=== PATIENT | female | born 1945 | race Caucasian/White ===

== ENCOUNTER 2016-07-22 17:46 | Inpatient (IN) | payer MEDICARE, OTHER ==
[2016-07-22] MEDS ORDERED: SODIUM CHLORIDE 0.9% 1,000 ML IV STA (18:36)
[2016-07-22] MEDS ORDERED: SODIUM CHLORIDE 0.9% 2,000 ML IV ONE (18:36)
--- NOTE | 2016-07-22 18:39 | ED ---
General Adult HPI - General Chief complaint: Fever Stated complaint: weakness Time Seen by Provider: 07/22/16 18:15 Source: patient, family, RN notes reviewed Mode of arrival: wheelchair Limitations: no limitations - History of Present Illness Initial comments: Is a 70-year-old female who presents with complaints of 2 weeks of flulike symptoms with headaches chills or generalized body aches and no nausea vomiting or diarrhea. She feels tired and has had decreased energy decreased oral appetite. 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 She denies any overt cough or dysuria no sore throat and rhinorrhea earaches or other symptoms at this time. She denies having neck stiffness so she does have again a headache. No back pain. - Related Data Home Medications Medication Instructions Recorded Confirmed Metoprolol Tartrate [Lopressor] 100 mg PO BID 07/22/16 07/22/16 Allergies Allergy/AdvReac Type Severity Reaction Status Date / Time Penicillins Allergy Rash/Hives Verified 07/22/16 18:07 Review of Systems ROS Statement: Those systems with pertinent positive or pertinent negative responses have been documented in the HPI. ROS Other: All systems not noted in ROS Statement are negative. Past Medical History Past Medical History: Hypertension History of Any Multi-Drug Resistant Organisms: None Reported Additional Past Surgical History / Comment(s): cataract Past Psychological History: No Psychological Hx Reported Smoking Status: Never smoker Past Alcohol Use History: None Reported Past Drug Use History: None Reported General Exam - General Exam Comments Initial Comments: This is a well-developed well-nourished awake alert oriented 3 female Limitations: no limitations General appearance: alert, lethargic Head exam: Present: atraumatic, normocephalic, normal inspection Eye exam: Present: normal appearance, PERRL, EOMI. Absent: scleral icterus, conjunctival injection, periorbital swelling ENT exam: Present: mucous membranes dry Neck exam: Present: normal inspection, full ROM. Absent: tenderness, meningismus, lymphadenopathy Respiratory exam: Present: normal lung sounds bilaterally. Absent: respiratory distress, wheezes, rales, rhonchi, stridor Cardiovascular Exam: Present: regular rate, normal rhythm, normal heart sounds. Absent: systolic murmur, diastolic murmur, rubs, gallop, clicks GI/Abdominal exam: Present: soft, normal bowel sounds. Absent: distended, tenderness, guarding, rebound, rigid Extremities exam: Present: normal inspection, full ROM, normal capillary refill. Absent: tenderness, pedal edema, joint swelling, calf tenderness Back exam: Present: normal inspection, full ROM. Absent: tenderness, CVA tenderness (R), CVA tenderness (L), muscle spasm, paraspinal tenderness, vertebral tenderness Neurological exam: Present: alert, oriented X3, CN II-XII intact Psychiatric exam: Present: normal affect, normal mood Skin exam: Present: warm, dry, intact, normal color. Absent: rash Course Vital Signs 07/22/16 07/22/16 07/22/16 17:51 19:17 19:19 Temperature 101.4 F H 101.6 F H Pulse Rate 75 69 Respiratory 18 18 Rate Blood Pressure 141/69 134/61 O2 Sat by Pulse 97 89 L 96 Oximetry 07/22/16 19:59 Temperature 101.7 F H Pulse Rate 79 Respiratory 18 Rate Blood Pressure 145/67 O2 Sat by Pulse 96 Oximetry EKG Findings - EKG Results: EKG: interpreted by MARIANO MCMANUS, sinus rhythm, normal axis, normal QRS, normal ST/ T, no acute changes (Normal sinus rhythm of 75 appear normal 140 QRS duration 82 QT/QTC of 392/437 this is a normal-appearing EKG.) Medical Decision Making - Medical Decision Making I did discuss findings with the patient family members. The patient's isn't patient is still unclear though pneumonia appears to be likely. I did discuss case with patient and her family and with the admitting physician patient be admitted with infectious disease consultation. Malaria screen is pending hepatitis panel will be ordered. Patient will be started on antibiotics. - Lab Data Result diagrams: 07/22/16 18:22 07/22/16 18:22 Lab Results 07/22/16 07/22/16 07/22/16 Range/Units 18:22 18:22 18:22 WBC 8.0 (3.8-10.6) k/uL RBC 4.44 (3.80-5.40) m/uL Hgb 13.2 (11.4-16.0) gm/dL Hct 39.0 (34.0-46.0) % MCV 87.8 (80.0-100.0) fL MCH 29.8 (25.0-35.0) pg MCHC 34.0 (31.0-37.0) g/dL RDW 12.6 (11.5-15.5) % Plt Count 154 (150-450) k/uL Neutrophils % 73 % Lymphocytes % 21 % Monocytes % 4 % Eosinophils % 0 % Basophils % 0 % Neutrophils # 5.8 (1.3-7.7) k/uL Lymphocytes # 1.7 (1.0-4.8) k/uL Monocytes # 0.3 (0-1.0) k/uL Eosinophils # 0.0 (0-0.7) k/uL Basophils # 0.0 (0-0.2) k/uL Manual Slide Review Performed Poikilocytosis (manual Present D-Dimer (<0.60) mg/L FEU Sodium 132 L (137-145) mmol/L Potassium 3.6 (3.5-5.1) mmol/L Chloride 93 L (98-107) mmol/L Carbon Dioxide 29 (22-30) mmol/L Anion Gap 10 mmol/L BUN 17 (7-17) mg/dL Creatinine 0.85 (0.52-1.04) mg/dL Est GFR (MDRD) Af Amer >60 (>60 ml/min/1.73 sqM) Est GFR (MDRD) Non-Af >60 (>60 ml/min/1.73 sqM) Glucose 120 H (74-99) mg/dL Plasma Lactic Acid Joce (0.7-2.0) mmol/L Calcium 8.2 L (8.4-10.2) mg/dL Magnesium 2.5 H (1.6-2.3) mg/dL Total Bilirubin 0.8 (0.2-1.3) mg/dL AST 128 H (14-36) U/L ALT 137 H (9-52) U/L Alkaline Phosphatase 94 (38-126) U/L Total Creatine Kinase 42 (30-135) U/L CK-MB (CK-2) 0.3 (0.0-2.4) ng/mL CK-MB (CK-2) Rel Index 0.7 Troponin I <0.012 (0.000-0.034) ng/mL Total Protein 6.3 (6.3-8.2) g/dL Albumin 3.4 L (3.5-5.0) g/dL Amylase 45 (30-110) U/L Lipase 74 (23-300) U/L 07/22/16 07/22/16 Range/Units 18:22 18:22 WBC (3.8-10.6) k/uL RBC (3.80-5.40) m/uL Hgb (11.4-16.0) gm/dL Hct (34.0-46.0) % MCV (80.0-100.0) fL MCH (25.0-35.0) pg MCHC (31.0-37.0) g/dL RDW (11.5-15.5) % Plt Count (150-450) k/uL Neutrophils % % Lymphocytes % % Monocytes % % Eosinophils % % Basophils % % Neutrophils # (1.3-7.7) k/uL Lymphocytes # (1.0-4.8) k/uL Monocytes # (0-1.0) k/uL Eosinophils # (0-0.7) k/uL Basophils # (0-0.2) k/uL Manual Slide Review Poikilocytosis (manual D-Dimer 5.48 H (<0.60) mg/L FEU Sodium (137-145) mmol/L Potassium (3.5-5.1) mmol/L Chloride (98-107) mmol/L Carbon Dioxide (22-30) mmol/L Anion Gap mmol/L BUN (7-17) mg/dL Creatinine (0.52-1.04) mg/dL Est GFR (MDRD) Af Amer (>60 ml/min/1.73 sqM) Est GFR (MDRD) Non-Af (>60 ml/min/1.73 sqM) Glucose (74-99) mg/dL Plasma Lactic Acid Joce 1.4 (0.7-2.0) mmol/L Calcium (8.4-10.2) mg/dL Magnesium (1.6-2.3) mg/dL Total Bilirubin (0.2-1.3) mg/dL AST (14-36) U/L ALT (9-52) U/L Alkaline Phosphatase (38-126) U/L Total Creatine Kinase (30-135) U/L CK-MB (CK-2) (0.0-2.4) ng/mL CK-MB (CK-2) Rel Index Troponin I (0.000-0.034) ng/mL Total Protein (6.3-8.2) g/dL Albumin (3.5-5.0) g/dL Amylase (30-110) U/L Lipase (23-300) U/L - Radiology Data Radiology results: report reviewed (I did review the imaging and reports there is some evidence of a atypical infiltrate a CAT scan but no evidence of PE.), image reviewed Disposition Clinical Impression: Atypical pneumonia, Febrile illness, Elevated d-dimer Disposition: ADMITTED IP TO THIS HOSP Condition: Stable Referrals: Dennys Ferrrao MD [Primary Care Provider] - 1-2 days
[2016-07-22 18:48] LABS: Basophils % (A) 0 %; CH 30.4; CHCM 34.7; MCV 87.8 fL (80.0-100.0); Mean Platelet Volume 7.9; RDW 12.6 % (11.5-15.5)
[2016-07-22 18:57] LABS: Eosinophils % (A) 0 %; HDW 2.66; HGB 13.2 gm/dL (11.4-16.0); Luc # (Auto) 0.16; Luc % (Auto) 2; Lymphocytes # (A) 1.7 k/uL (1.0-4.8); Lymphocytes % (A) 21 %; MCH 29.8 pg (25.0-35.0); Monocytes # (A) 0.3 k/uL (0-1.0); Monocytes % (A) 4 %; Neutrophils # (A) 5.8 k/uL (1.3-7.7); Neutrophils % (A) 73 %; RBC 4.44 m/uL (3.80-5.40); WBC (Perox) 8.51
[2016-07-22 19:03] LABS: ALT 137 U/L (9-52); AST 128 U/L (14-36); Alkaline Phosphatase 94 U/L (38-126); Amylase 45 U/L (30-110); Anion Gap 10 mmol/L; Blood Urea Nitrogen 17 mg/dL (7-17); Calcium 8.2 mg/dL (8.4-10.2); Carbon Dioxide 29 mmol/L (22-30); Chloride 93 mmol/L (98-107); Glucose 120 mg/dL (74-99); Magnesium 2.5 mg/dL (1.6-2.3); Non-African American GFR(MDRD) >60 (>60 ml/min/1.73 sqM); Potassium 3.6 mmol/L (3.5-5.1); Sodium 132 mmol/L (137-145); Total Bilirubin 0.8 mg/dL (0.2-1.3); Total Protein 6.3 g/dL (6.3-8.2)
[2016-07-22 19:06] LABS: Creatine Kinase 42 U/L (30-135)
--- NOTE | 2016-07-22 19:12 | CT ---
EXAMINATION TYPE: CT brain wo con DATE OF EXAM: 07/22/2016 6:56 PM COMPARISON: NONE HISTORY: 70-year-old female complains of weakness and flu like symptoms. TECHNIQUE: Examination was done in axial plane without intravenous contrast. Coronal and sagittal r econstructions performed. CT DLP: 996.7 mGycm Automated exposure control for dose reduction was used. FINDINGS: There is no evidence of acute intracranial hemorrhage, acute ischemic changes, mass, mass-effect, or extra-axial fluid collection. There is no effacement of cerebral sulci or basal subarachnoid cister ns. There is no hydrocephalus. There is no midline shift. Gilbert-white matter distinction is preserv ed. Benign basal ganglia calcifications. 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 Paranasal sinus es and mastoid air cells are well pneumatized. Orbits and globes are intact. IMPRESSION: No acute intracranial abnormality seen.
--- NOTE | 2016-07-22 19:13 | XR ---
EXAMINATION TYPE: XR chest 2V DATE OF EXAM: 07/22/2016 6:58 PM COMPARISON: None HISTORY: 70-year-old female with cough TECHNIQUE: Frontal and lateral views FINDINGS: The cardiomediastinal silhouette, aorta, and pulmonary vasculature are within normal limits. Some str imtiaz atelectasis at the left infrahilar region. Focal density at the right apex could represent a elsie cified granuloma or bone island of the right first rib. No consolidation or pleural effusion. IMPRESSION: No acute cardiopulmonary process.
[2016-07-22 19:16] LABS: Manual Review Performed
[2016-07-22 19:18] LABS: Creatine Kinase MB 0.3 ng/mL (0.0-2.4); Troponin I <0.012 ng/mL (0.000-0.034)
[2016-07-22] MEDS ORDERED: ACETAMINOPHEN TAB 325 MG TAB PO STA (19:30)
[2016-07-22] MEDS ORDERED: RX INFO: IV CONTRAST WAS GIVEN 1 EACH MISC MISCELLANE PRN (19:39)
--- NOTE | 2016-07-22 20:12 | CT ---
EXAMINATION TYPE: CT angio chest DATE OF EXAM: 07/22/2016 8:00 PM COMPARISON: Radiograph same day HISTORY: 70-year-old female complains of generalized weakness, fever, and flu like symptoms. TECHNIQUE: Contiguous axial scanning of the chest performed with IV Contrast, patient injected with 1 00 mL of Omnipaque 350. Coronal/sagittal MIP reconstructions performed. CT DLP: 210.1 mGycm Automated exposure control for dose reduction was used. FINDINGS: The heart see upper limits of normal in size without pericardial effusion. Aorta is normal caliber with conventional arch vessel branching anatomy. While there is satisfactory opacification of the pulmonary arterial system, there is excessive respir atory motion limiting evaluation. This causes mild heterogeneity of the pulmonary arteries throughout but makes the basilar lower lobe segmental and subsegmental branches nondiagnostic. No evidence for pulmonary embolus within the upper to mid lungs. No thoracic lymphadenopathy. A 1.2 cm subcarinal lymph node is prominent but not enlarged. Evaluation of the lungs shows [id number] diffuse bronchial wall thickening, hazy diffuse areas of atelectasis, and some bands of atelectasis at the left base. There is no true consolidation or pl eural effusion. Visualized upper abdomen shows no gross abnormality. Bones: Endplate spondylosis midthoracic spine. Prominent Schmorl's nodes inferior L1 vertebral body. IMPRESSION: 1. RESPIRATORY MOTION ARTIFACTS. THE BASILAR SEGMENTAL AND SUBSEGMENTAL BRANCHES ON BOTH SIDES ARE NO NDIAGNOSTIC. NO EVIDENCE FOR PULMONARY EMBOLUS WITHIN THE UPPER OR MID LUNGS. 2. [id number] DIFFUSE BRONCHIAL WALL THICKENING AND HAZY DIFFUSE AREAS OF ATELECTASIS. CORRELAT E FOR BRONCHITIS, UNCONTROLLED ASTHMA, OR ATYPICAL PNEUMONIAS.
[2016-07-22] MEDS ORDERED: LEVOFLOXACIN 750MG-D5W PMX 750 MG in DEXTROSE/WATER 1 150ML.BAG IVPB STA (20:47)
[2016-07-22] MEDS ORDERED: PNEUMONIA PROTOCOL UTILIZED 1 EACH MISC PO PRN (20:47)
--- NOTE | 2016-07-22 21:56 | US ---
EXAMINATION TYPE: US venous doppler duplex LE BI DATE OF EXAM: 07/22/2016 8:51 PM COMPARISON: NONE CLINICAL HISTORY: 70 year-old female with elevated d-dimer and pain. SIDE PERFORMED: Bilateral TECHNIQUE: The lower extremity deep venous system is examined utilizing real time linear array sonog caterina with graded compression, doppler sonography and color-flow sonography. FINDINGS: VESSELS IMAGED: External Iliac Vein (EIV) Common Femoral Vein Deep Femoral Vein Greater Saphenous Vein * Femoral Vein Popliteal Vein Small Saphenous Vein * Proximal Calf Veins (* superficial vessels) Right Leg: Negative for DVT Left Leg: Negative for DVT IMPRESSION: No evidence for DVT within the bilateral lower extremities imaged from the groin to the upper calves.
[2016-07-22] MEDS: METOPROLOL TARTRATE 50 MG TAB PO SCH (22:03)
[2016-07-22 22:16] VITALS: BMI 26.3
[2016-07-23 07:59] LABS: Hepatitis B Core IgM Index 0.02; Hepatitis B Surface Ag Index 0.06; Hepatitis C Virus IgG Ab Negative (Negative); Hepatitis C Virus IgG Index 0.01
[2016-07-23] MEDS: METOPROLOL TARTRATE 50 MG TAB PO SCH ×2 (08:46→21:04)
--- NOTE | 2016-07-23 14:54 | P.CONS ---
History of Present Illness - Reason for Consult Consult date: 07/23/16 Atypical pneumonia, febrile illness - History of Present Illness This is a 70-year-old female who gives history that she tested positive for influenza sometime in May and completed a course of antimicrobial. 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 While she was there she was feeling sick again and quite congested. She will return in a couple weeks later she developed chills, terrible headache , body aches. She has occasional cough but much better from before. She denies any nausea, vomiting, diarrhea. She states she's had decreased appetite and probably some weight loss but unknown amount. She came into [facility] emergency center for evaluation. Chest x-ray showed no acute cardiopulmonary process. CAT scan of the brain showed no acute findings. D- dimer was elevated at 5.[address] of the chest showed no pulmonary embolism. There was mild to moderate bronchial cardenas thickening with hazy diffuse areas of atelectasis. Bronchitis, uncontrolled as more atypical pneumonia and differential. Ultrasound of the bilateral lower extremities were negative for DVT. Blood cultures status received. Sputum was uncollected. Urine is ordered. Influenza testing is status received. White count was 8, temperature 101.7. AST 128, ALT 137. Albumin 3.4. Acute hepatitis panel is negative. Parasite malaria testing is in process. She thinks that her doctors told her she has had elevated liver function tests in the past but does not know why or if there was any workup done. She was placed on Levaquin and she now states that she is feeling much improved. All her symptoms are improved. She states she has been walking in the hallway without any difficulty and is hoping to go home soon. Review of Systems All systems: negative Constitutional: Reports chills, Denies fever Eyes: denies blurred vision, denies pain Ears, nose, mouth and throat: Reports headache, Denies sore throat Cardiovascular: Denies chest pain, Denies shortness of breath Respiratory: Denies cough Gastrointestinal: Denies abdominal pain, Denies diarrhea, Denies nausea, Denies vomiting Genitourinary: Denies dysuria, Denies hematuria Musculoskeletal: Reports myalgias Integumentary: Denies pruritus, Denies rash Neurological: Denies numbness, Denies weakness Psychiatric: Denies anxiety, Denies depression Endocrine: Denies fatigue, Denies weight change Past Medical History Past Medical History: Hypertension Additional Past Medical History / Comment(s): fuchs dystrophy History of Any Multi-Drug Resistant Organisms: None Reported Past Surgical History: Tonsillectomy Additional Past Surgical History / Comment(s): bialteral cataracts with lense implants, bilateral bunionectomy Past Anesthesia/Blood Transfusion Reactions: No Reported Reaction Past Psychological History: No Psychological Hx Reported Smoking Status: Never smoker Past Alcohol Use History: None Reported Additional Past Alcohol Use History / Comment(s): Patient is a lifelong nonsmoker. She denies any medical marijuana, marijuana, street drug or alcohol use. She currently lives alone. There are no animals in the home. She has traveled to [place] on 2 occasions, [place] and [place]. She denies any recent animal exposures. 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 Past Drug Use History: None Reported - Past Family History Mother Family Medical History: Cancer Additional Family Medical History / Comment(s): breast cancer, osteoporosis Medications and Allergies Home Medications Medication Instructions Recorded Confirmed Type Metoprolol Tartrate [Lopressor] 100 mg PO BID 07/22/16 07/22/16 History Allergies Allergy/AdvReac Type Severity Reaction Status Date / Time Penicillins Allergy Rash/Hives Verified 07/22/16 18:07 Physical Exam Vitals: Vital Signs Temp Pulse Pulse Resp BP BP Pulse Ox 07/23/16 07:00 98.4 F 70 16 144/66 96 07/23/16 00:00 16 07/22/16 23:00 97.7 F 69 16 124/55 95 07/22/16 21:28 98.3 F 65 18 124/60 94 L 07/22/16 19:59 101.7 F H 79 18 145/67 96 07/22/16 19:19 96 07/22/16 19:17 101.6 F H 69 18 134/61 89 L 07/22/16 17:51 101.4 F H 75 18 141/69 97 Intake and Output 07/22/16 07/23/16 07/23/16 22:59 06:59 14:59 Intake Total 120 Balance 120 Intake: Oral 120 Other: Voiding Method Toilet Toilet # Voids 1 3 Weight 69.5 kg Gen: This is a 70-year-old female. She is sitting up in the edge of the bed and appears to be in no acute distress. No respiratory distress noted. HEENT: Head is atraumatic, normocephalic. Pupils equal, round. Sclerae is anicteric. Conjunctiva pink. Mucous members of the mouth are moist. No thrush noted. NECK: Supple. No JVD. No lymphadenopathy. No thyromegaly. LUNGS: Clear to auscultation. No wheezes or rhonchi. No intercostal retractions. HEART: Regular rate and rhythm. No murmur. ABDOMEN: Soft. Bowel sounds are present. No masses. No tenderness. No CVA tenderness. EXTREMITIES: No pedal edema. No calf tenderness. Dorsalis pedis +2 bilaterally. NEUROLOGICAL: Patient is awake, alert and oriented x3. Cranial nerves 2 through 12 are grossly intact. Results Results: Laboratory Results WBC 8.0 k/uL (3.8-10.6) 07/22/16 18: RBC 4.44 m/uL (3.80-5.40) 07/22/16 18: Hgb 13.2 gm/dL (11.4-16.0) 07/22/16 18: Hct 39.0 % (34.0-46.0) 07/22/16 18: MCV 87.8 fL (80.0-100.0) 07/22/16 18: MCH 29.8 pg (25.0-35.0) 07/22/16 18: MCHC 34.0 g/dL (31.0-37.0) 07/22/16 18: RDW 12.6 % (11.5-15.5) 07/22/16 18:22 Plt Count 154 k/uL (150-450) 07/22/16 18:22 Neutrophils % 73 % 07/22/16 18:22 Lymphocytes % 21 % 07/22/16 18:22 Monocytes % 4 % 07/22/16 18: Eosinophils % 0 % 07/22/16 18:22 Basophils % 0 % 07/22/16 18:22 Neutrophils # 5.8 k/uL (1.3-7.7) 07/22/16 18: Lymphocytes # 1.7 k/uL (1.0-4.8) 07/22/16 18:22 Monocytes # 0.3 k/uL (0-1.0) 07/22/16 18:22 Eosinophils # 0.0 k/uL (0-0.7) 07/22/16 18:22 Basophils # 0.0 k/uL (0-0.2) 07/22/16 18:22 Manual Slide Review Performed 07/22/16 18:22 Poikilocytosis (manual Present 07/22/16 18:22 D-Dimer 5.48 mg/L FEU (<0.60) H 07/22/16 18:22 Sodium 132 mmol/L (137-145) L 07/22/16 18:22 Potassium 3.6 mmol/L (3.5-5.1) 07/22/16 18: Chloride 93 mmol/L (98-107) L 07/22/16 18: Carbon Dioxide 29 mmol/L (22-30) 07/22/16 18:22 Anion Gap 10 mmol/L 07/22/16 18:22 BUN 17 mg/dL (7-17) 07/22/16 18:22 Creatinine 0.85 mg/dL (0.52-1.04) 07/22/16 18:22 Est GFR (MDRD) Af Amer >60 (>60 ml/min/1.73 sqM) 07/22/16 18:22 Est GFR (MDRD) Non-Af >60 (>60 ml/min/1.73 sqM) 07/22/16 18: Glucose 120 mg/dL (74-99) H 07/22/16 18:22 Plasma Lactic Acid Joce 1.4 mmol/L (0.7-2.0) 07/22/16 18: Calcium 8.2 mg/dL (8.4-10.2) L 07/22/16 18:22 Magnesium 2.5 mg/dL (1.6-2.3) H 07/22/16 18:22 Total Bilirubin 0.8 mg/dL (0.2-1.3) 07/22/16 18:22 AST 128 U/L (14-36) H 07/22/16 18:22 ALT 137 U/L (9-52) H 07/22/16 18:22 Alkaline Phosphatase 94 U/L (38-126) 07/22/16 18:22 Total Creatine Kinase 42 U/L (30-135) 07/22/16 18:22 CK-MB (CK-2) 0.3 ng/mL (0.0-2.4) 07/22/16 18: CK-MB (CK-2) Rel Index 0.7 07/22/16 18:22 Troponin I <0.012 ng/mL (0.000-0.034) 07/22/16 18: Total Protein 6.3 g/dL (6.3-8.2) 07/22/16 18: Albumin 3.4 g/dL (3.5-5.0) L 07/22/16 18: Amylase 45 U/L (30-110) 07/22/16 18: Lipase 74 U/L (23-300) 07/22/16 18:22 Hepatitis A IgM Ab NEGATIVE 07/22/16 18:22 Hep Bs Antigen Negative 07/22/16 18: Hep B Core IgM Ab NEGATIVE 07/22/16 18: Hep C IgG Ab Negative (Negative) 07/22/16 18:22 CBC & Chem 7: 07/22/16 18:22 07/22/16 18:22 Labs: Abnormal Lab Results - Last 24 Hours (Table) 07/22/16 07/22/16 Range/Units 18: 18: D-Dimer 5.48 H (<0.60) mg/L FEU Sodium 132 L (137-145) mmol/L Chloride 93 L (98-107) mmol/L Glucose 120 H (74-99) mg/dL Calcium 8.2 L (8.4-10.2) mg/dL Magnesium 2.5 H (1.6-2.3) mg/dL AST 128 H (14-36) U/L ALT 137 H (9-52) U/L Albumin 3.4 L (3.5-5.0) g/dL Assessment and Plan Plan: This is a 70-year-old female who presented to the hospital with flu- type symptoms including fever, chills, headache, body aches with influenza testing in process. She did have previous treatment for influenza before May of this year. She has been given Levaquin with significant improvement of all her symptoms. Possible atypical pneumonia not ruled out. Continue supportive care. Further recommendations as patient progresses. The above dictated assessment and findings were discussed with Dr. Goodman. The impression and plan of care have been directed as dictated. Alaina Herrera nurse practitioner acting as scribe for Dr. Goodman.
[2016-07-23] MEDS: SODIUM CHLORIDE 0.9% 1,000 ML IV SCH (16:32)
[2016-07-23] MEDS: ENOXAPARIN 40 MG/0.4 ML SYRINGE SQ SCH (18:05)
[2016-07-23] MEDS: ACETAMINOPHEN TAB 325 MG TAB PO PRN (18:07)
--- NOTE | 2016-07-23 19:10 | P.CNPUL ---
History of Present Illness Consult date: 07/23/16 Requesting physician: Beto Bray Reason for consult: other (Abnormal CT of the chest, suggestive of atelectasis, possible pneumonia and possible bronchitis.) Chief complaint: Weakness fatigue and fever. History of present illness: This is a 70-year-old female with 2 weeks history of flulike symptoms, symptoms include low-grade fever, headaches, generalized aches and pains, no cough, no no chills, no shortness of breath, patient has been describing symptoms of weakness and poor appetite. Patient was in [facility] back in May for 2 weeks, and she had no clinical symptoms while in [facility]. Chest x-ray showed mostly atelectasis at the left base, same was noted on the CT of the chest. I reviewed the CT of the chest myself, and there is clearly evidence of bronchial wall thickening, and hazy areas of atelectasis at the bases. Again the patient had no cough, no hemoptysis, and no shortness of breath, no chest pain. The CT of the chest was suboptimal in quality because of motion artifacts. No evidence of thromboembolic disease noted. Patient was already seen by infectious disease on consultation for her acute febrile illness, and final recommendation is pending. Review of Systems 14 point review of systems were obtained, please refer to pertinent positives and negatives in HPI. Past Medical History Past Medical History: Hypertension Additional Past Medical History / Comment(s): fuchs dystrophy History of Any Multi-Drug Resistant Organisms: None Reported Past Surgical History: Tonsillectomy Additional Past Surgical History / Comment(s): bialteral cataracts with lense implants, bilateral bunionectomy Past Anesthesia/Blood Transfusion Reactions: No Reported Reaction Past Psychological History: No Psychological Hx Reported Smoking Status: Never smoker Past Alcohol Use History: None Reported Additional Past Alcohol Use History / Comment(s): Patient is a lifelong nonsmoker. She denies any medical marijuana, marijuana, street drug or alcohol use. She currently lives alone. There are no animals in the home. She has traveled to [place] on 2 occasions, [place] and [place]. She denies any recent animal exposures. 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 Past Drug Use History: None Reported - Past Family History Mother Family Medical History: Cancer Additional Family Medical History / Comment(s): breast cancer, osteoporosis Medications and Allergies Home Medications Medication Instructions Recorded Confirmed Type Metoprolol Tartrate [Lopressor] 100 mg PO BID 07/22/16 07/22/16 History Allergies Allergy/AdvReac Type Severity Reaction Status Date / Time Penicillins Allergy Rash/Hives Verified 07/22/16 18:07 Physical Exam Vitals: Vital Signs Temp Pulse Pulse Resp BP BP Pulse Ox 07/23/16 15:00 101.4 F H 72 16 136/63 94 L 07/23/16 07:00 98.4 F 70 16 144/66 96 07/23/16 00:00 16 07/22/16 23:00 97.7 F 69 16 124/55 95 07/22/16 21:28 98.3 F 65 18 124/60 94 L 07/22/16 19:59 101.7 F H 79 18 145/67 96 07/22/16 19:19 96 07/22/16 19:17 101.6 F H 69 18 134/61 89 L Intake and Output 07/23/16 07/23/16 07/23/16 06:59 14:59 22:59 Intake Total 120 Balance 120 Intake: Oral 120 Other: Voiding Method Toilet Toilet Toilet # Voids 3 2 Ph: Revealed a 70-year-old female in no distress.ysical Exam HEENT:[Neck is supple.] [No neck masses.] [No thyromegaly.] [No JVD.] Chest: [Clear throughout, no crackles, no rhonchi, no wheezes.] Cardiac Exam: [Normal S1 and S2, no S3 gallop, no murmur.] Abdomen: [Soft, nontender, no megaly, no rebound, no guarding, normal bowel sounds.] Extremities: [No clubbing, no edema, no cyanosis.] Neurological Exam: [No focal neurologic deficit.] Results - Laboratory Findings CBC and BMP: 07/22/16 18:22 07/22/16 18:22 PT/INR, D-dimer D-Dimer 5.48 mg/L FEU (<0.60) H 07/22/16 18:22 Abnormal lab findings: Abnormal Labs 07/22/16 07/22/16 07/23/16 18:22 18:22 16:14 ESR 41 H D-Dimer 5.48 H Sodium 132 L Chloride 93 L Glucose 120 H Calcium 8.2 L Magnesium 2.5 H AST 128 H ALT 137 H C-Reactive Protein Albumin 3.4 L 07/23/16 17:27 ESR D-Dimer Sodium Chloride Glucose Calcium Magnesium AST ALT C-Reactive Protein 87.6 H Albumin - Diagnostic Findings Chest x-ray: image reviewed CT scan - chest: image reviewed (Please refer to HPI. ) Assessment and Plan Plan: Impression: 1 Acute febrile illness with weakness and generalized constitutional symptoms, possibly acute viral illness related. 2 nonspecific atelectasis noted on the chest x-ray and CT of the chest, strongly doubt pneumonia based on the clinical history and based on the physical findings of the chest. Recommendation: Continue present treatment plan, continue antibiotics empirically, will follow. Not much to be added otherwise at this point. Time with Patient: Greater than 30
[2016-07-23] MEDS: LEVOFLOXACIN 750 MG TAB PO SCH (21:04)
[2016-07-23 21:07] LABS: Appearance,Urine Clear (Clear); Bacteria,Urine Rare /hpf; Bilirubin,Urine Negative (Negative); Glucose,Urine (UA) Negative (Negative); Granular Casts,Urine 1 /lpf (0); Ketones,Urine Negative (Negative); Leukocyte Esterase,Urine Negative (Negative); Mucus,Urine Occasional /hpf; Nitrite,Urine Negative (Negative); PH, Urine 5.5 (5.0-8.0); Particle Count 10058; Protein,Urine 1+ (Negative); RBC,Urine 1 /hpf (0-5); Squamous Epithelial Cell,Urine <1 /hpf (0-4); UA Billing (MACRO vs. MICRO) MICRO; Urobilinogen,Urine <2.0 mg/dL (<2.0); WBC,Urine 4 /hpf (0-5)
--- NOTE | 2016-07-23 22:48 | HP ---
DATE OF ADMISSION: 07/22/2016 PRESENTING COMPLAINT: Weak and tired. HISTORY OF PRESENTING COMPLAINT: Very pleasant 70-year-old patient of Dr. Ferraro who has history of hypertension, presented with multitude of symptoms. The patient also has Fuchs dystrophy affecting the cornea. Patient had gone to [facility] and prior to going there she had flulike symptoms, but came back with a conglomeration of symptoms including having chills, headache, tired, sleepy, aching all over, no obvious fevers though. No blood in the urine. No rash. Decreased appetite, rundown. Tired. Denies any insect bite. Not any exposure to animals. REVIEW OF SYSTEMS: CONSTITUTIONAL: As above. HEENT: None. RESPIRATORY: No cough. CARDIOVASCULAR: None. GASTROINTESTINAL: No diarrhea. GENITOURINARY: None. MUSCULOSKELETAL: Achiness all over. Dermatological: None. PSYCHIATRY: None. NEUROLOGICAL: None. PAST MEDICAL HISTORY: Hypertension and Fuchs dystrophy. PAST SURGICAL HISTORY: Tonsillectomy, bilateral cataract lens implant, bilateral bunionectomy. SOCIAL HISTORY: A nonsmoker. Lives by herself. 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 Recently returned from [facility]. FAMILY HISTORY: Cancer, breast cancer, osteoporosis. Home medications: Lopressor 100 milligrams b.i.d. ALLERGIES TO PENICILLIN. On examination, temperature 101.7, pulse 72, respirations 16, blood pressure 130/63, pulse ox 94% on room air. GENERAL APPEARANCE: Average build, lying in bed, tired-appearing. EYES: Pupils equal. Conjunctivae normal. HEENT: External appearance of nose and ears normal. Oral cavity normal. NECK: JVD not raised. Mass not palpable. RESPIRATORY: Effort normal. Lungs are clear. CARDIOVASCULAR: First and second sounds normal. No edema. ABDOMEN: Soft, nontender. Liver and spleen not palpable. LYMPHATIC: No lymph nodes palpable in the neck and axilla. PSYCHIATRY: Alert and oriented x3. Mood and affect, tired-appearing. NEUROLOGICAL: Pupils equal. Cranial nerves grossly intact. Power and sensation grossly intact. INVESTIGATIONS: White count 8, hemoglobin 13.2. Potassium 3.6, BUN/creatinine normal. AST 128, ALT 137, thyroid screen negative. CHEST X-RAY: Nil acute. Chest CTA shows diffuse bronchial wall thickening. Chest CTA shows mild to moderate diffuse bronchial wall thickening and hazy diffuse atelectasis. ASSESSMENT: 1. This is a patient who just came back from [facility] with multitude of symptoms, feeling weak, tired, afebrile. Some nonspecific CT scan findings associated hepatitis. No symptoms of meningitis, feeling tired and rundown. 2. Essential hypertension. PLAN: We will put the patient on IV fluids. Lovenox. The patient is put on Levaquin in the ER. Infectious disease was consulted. Also consult pulmonary for nonspecific findings and CT chest, also send off for CMV IgG and IgM. Also Sarah-Coffman virus and look at other atypical causes. The patient denies any mosquito bites at this point.
--- NOTE | 2016-07-23 23:29 | P.CON ---
Consult Note - . Consult date: 07/23/16 Assessment/Plan:: This is a 70-year-old female who gives history that she tested positive for influenza sometime in May and completed a course of antimicrobial. She then went to [facility] on a mission trip from May 18 through June 01. While she was there she was feeling sick again and quite congested. She will return in a couple weeks later she developed chills, terrible headache , body aches. She has occasional cough but much better from before. She denies any nausea, vomiting, diarrhea. She states she's had decreased appetite and probably some weight loss but unknown amount. She came into [facility] emergency center for evaluation. Chest x-ray showed no acute cardiopulmonary process. CAT scan of the brain showed no acute findings. D- dimer was elevated at 5.[address] of the chest showed no pulmonary embolism. There was mild to moderate bronchial cardenas thickening with hazy diffuse areas of atelectasis. Bronchitis, uncontrolled as more atypical pneumonia and differential. Ultrasound of the bilateral lower extremities were negative for DVT. Blood cultures status received. Sputum was uncollected. Urine is ordered. Influenza testing is status received. White count was 8, temperature 101.7. AST 128, ALT 137. Albumin 3.4. Acute hepatitis panel is negative. Parasite malaria testing is in process. She thinks that her doctors told her she has had elevated liver function tests in the past but does not know why or if there was any workup done. She was placed on Levaquin and she now states that she is feeling much improved. All her symptoms are improved. She states she has been walking in the hallway without any difficulty and is hoping to go home soon. Please see the consult note as dictated by nurse practitioner Alaina Rayojg. Is the patient does have history of been in in [facility], is approximately 5 weeks ago. Her symptoms are mostly pulmonary this point in time. But she does have fever. Malarial smears are pending. Patient is receiving antibiotic therapy for the abnormality seen on her computed tomography scan which is of a bronchitis or pneumonia. Viral pathogen considered. Also check mycoplasma as well as Legionella.current antibiotic therapy would be effectivefor most bacterial pathogens in this situation. Her symptom complex does not fit we but will try to ensure that this not ongoing at this time. patient is somewhat anxious discharge. however she continues to have fever and workup is in progress. I agree with evaluation, assessment and plan as dictated by nurse practitioner Mrs. Alaina Herrera.
[2016-07-24] MEDS: SODIUM CHLORIDE 0.9% 1,000 ML IV SCH ×2 (04:54→12:24)
[2016-07-24] MEDS: METOPROLOL TARTRATE 50 MG TAB PO SCH ×2 (08:52→21:50)
[2016-07-24] MEDS: ENOXAPARIN 40 MG/0.4 ML SYRINGE SQ SCH (08:52)
--- NOTE | 2016-07-24 14:49 | P.PN ---
Subjective Principal diagnosis: Fever of unknown origin, progressive weakness This is a 70-year-old female with 2 weeks history of flulike symptoms, symptoms include low-grade fever, headaches, generalized aches and pains, no cough, no no chills, no shortness of breath, patient has been describing symptoms of weakness and poor appetite. Patient was in [facility] back in May for 2 weeks, and she had no clinical symptoms while in [facility]. Chest x-ray showed mostly atelectasis at the left base, same was noted on the CT of the chest. I reviewed the CT of the chest myself, and there is clearly evidence of bronchial wall thickening, and hazy areas of atelectasis at the bases. Again the patient had no cough, no hemoptysis, and no shortness of breath, no chest pain. The CT of the chest was suboptimal in quality because of motion artifacts. No evidence of thromboembolic disease noted. Patient was already seen by infectious disease on consultation for her acute febrile illness, and final recommendation is pending. The patient is seen again today 07/24/2016 in follow-up on the regular medical floor. She is awake and alert in no acute distress. She is still quite tired and fatigued. She did have another spike in temperature yesterday afternoon to 101.4. Currently afebrile. She is hemodynamically stable. She is maintaining good O2 saturations in the mid 90s on room air. No pulmonary complaints. Objective - Vital Signs Vital signs: Vital Signs Temp 98.7 F 07/24/16 07:00 Pulse 61 07/24/16 07:00 Resp 18 07/24/16 07:00 BP 142/61 07/24/16 07:00 Pulse Ox 92 L 07/24/16 07:00 Intake & Output 07/23/16 07/24/16 07/24/16 18:59 06:59 18:59 Intake Total 120 800 Balance 120 800 Intake: Intake, IV Titration 800 Amount Sodium Chloride 0.9% 1, 800 000 ml @ 100 mls/hr IV . Q10H JOSE C Rx#:[id number] Oral 120 Other: Voiding Method Toilet # Voids 2 1 - Exam GENERAL EXAM: Alert, fairly comfortable in no apparent distress. HEAD: Normocephalic. EYES: Normal reaction of pupils, equal size. NOSE: Clear with pink turbinates. THROAT: No erythema or exudates. NECK: No masses, no JVD. CHEST: No chest wall deformity. LUNGS: Equal air entry with no crackles, wheeze, rhonchi or dullness. CVS: S1 and S2 normal with no audible mumurs, regular rhythm. ABDOMEN: No hepatosplenomegaly, normal bowel sounds, no guarding or rigidity. SPINE: No scoliosis or deformity SKIN: No rashes CENTRAL NERVOUS SYSTEM: No focal deficits, tone is normal in all 4 extremities. Extremities: There is no peripheral edema. No clubbing, no cyanosis. Peripheral pulses are intact. - Labs CBC & Chem 7: 07/22/16 18:22 07/22/16 18:22 Labs: Abnormal Lab Results - Last 24 Hours (Table) 07/23/16 07/23/16 07/23/16 Range/Units 16:14 17:27 20:40 ESR 41 H (0-20) mm/hr C-Reactive Protein 87.6 H (<10.0) mg/L Urine Protein 1+ H (Negative) Urine Blood Small H (Negative) Urine Bacteria Rare H (None) /hpf Urine Mucus Occasional H (None) /hpf Microbiology - Last 24 Hours (Table) 07/22/16 18:22 Blood Culture - Preliminary Blood No Growth after 24 hours Assessment and Plan Plan: Impression: #1 Acute febrile illness with progressive weakness and fatigue, suspect acute viral illness. Recent travel to [facility]. CMV IgG and IgM negative. Hepatitis screen negative. Blood parasite thin smear negative. #2 Atelectasis of the lung bases, doubt pneumonia, PE ruled out. #3 Hypertension. #4 Elevated liver enzymes of unclear significance. Hepatitis screen negative. Plan: The patient was seen and evaluated by Dr. Shirley. Computed tomography scan, chest x-ray, labs all reviewed. She is stable from the pulmonary standpoint. She is currently on Levaquin. She is on Lovenox for DVT prophylaxis. We will increase her activity as tolerated. We'll continue to follow.
[2016-07-24] MEDS: ACETAMINOPHEN TAB 325 MG TAB PO PRN (14:57)
--- NOTE | 2016-07-24 18:51 | PN ---
DATE OF SERVICE: 07/24/2016 PRESENTING COMPLAINT: Weak and tired. INTERVAL HISTORY: This is a patient who presented with very nonspecific symptoms of headache, chills, sleepy, tired, general body aches. Today patient appears tired, lying in her bed. Does not have much energy, able to answer questions, very talkative however, states she feels very tired. Review of systems done for constitutional, cardiovascular, GI, pulmonary with relevant findings as above. CURRENT MEDICATIONS: Lovenox, Levaquin, Lopressor. PHYSICAL EXAMINATION: VITAL SIGNS: Temperature 98.7, pulse 61, respirations 18, blood pressure 142/61, oxygen saturation 92% on room air. GENERAL APPEARANCE: Patient is lying in bed, appears tired. EYES: Pupils equal. Conjunctivae normal NECK: JVD not raised. Mass not palpable. LUNGS: Sounds diminished bilaterally. RESPIRATORY: Effort normal. CARDIOVASCULAR: First and second sounds normal. No edema. ABDOMEN: Soft, nontender. Liver and spleen not palpable. PSYCHIATRY: Alert and oriented x3. Mood and affect normal. INVESTIGATIONS: D-dimer 5.48. Sodium 132, potassium 36, BUN 17, creatinine 0.85, magnesium 2.5. ASSESSMENT: 1. This patient presented with nonspecific symptoms feeling weak, tired, afebrile. Nonspecific CT scan reveals hepatitis. Slow to respond. 2. Essential hypertension. PLAN: Patient will remain on IV fluids, Lovenox and Levaquin. No new recommendations from Infectious Disease, and they will continue to follow. Will monitor closely. Patient was seen and examined by nurse practitioner, Mary Mcgovern, and all elements of the case discussed with attending, Dr. Bray.
[2016-07-24] MEDS ORDERED: RX INFO: IV CONTRAST WAS GIVEN 1 EACH MISC MISCELLANE PRN (19:29)
[2016-07-24] MEDS: IOHEXOL 350 MG/ML 25 ML BOTTLE (ORAL USE) PO PRN ×2 (19:50→20:43)
[2016-07-24] MEDS: LEVOFLOXACIN 750 MG TAB PO SCH (21:49)
--- NOTE | 2016-07-24 21:50 | CT ---
EXAMINATION TYPE: CT abdomen pelvis w con DATE OF EXAM: 07/24/2016 9:42 PM COMPARISON: NONE HISTORY: Fever of unknown region. CT DLP: 595.4 mGycm Automated exposure control for dose reduction was used. TECHNIQUE: Helical acquisition of images was performed from the lung bases through the pelvis. CONTRAST: Performed with Oral Contrast and with IV Contrast, patient injected with 100 mL of Omnipaque 300. FINDINGS: There is mild left pleural effusion. There is mild subsegmental atelectasis at the lung bases. Liver shows no focal defect. Gallbladder appears normal. Bile ducts are not dilated. Spleen and pancr eas appear normal. There is no adrenal mass. There is normal contrast opacification of the kidneys. There is no hydronep hrosis. There is no retroperitoneal adenopathy. Ureters are not dilated. There is no ascites. Bladder distends smoothly. There is no sign of a pelvic mass. There is a tiny amount of free fluid in the cu l-de-sac. Appendix is not seen. There is no sign of appendicitis. I see no intestinal wall thickening . There are no dilated loops. There is mild atheromatous change in the abdominal aorta. There is no s ign of a pelvic mass. I see no bony destructive process. There is a Schmorl node in the inferior endp late of L1 vertebra. IMPRESSION: SMALL LEFT PLEURAL EFFUSION. MILD SUBSEGMENTAL ATELECTASIS AT THE LUNG BASES. ATHEROSCLEROTIC VASCULA R DISEASE. THERE IS A 6 VERY SMALL AMOUNT OF FREE FLUID IN THE CUL-DE-SAC OF UNCERTAIN SIGNIFICANCE.
--- NOTE | 2016-07-24 22:12 | PN ---
DATE OF SERVICE: 07/24/2016 ATTENDING NOTE: This patient was seen and examined by me earlier today. I reviewed the note of my nurse practitioner, Ms. Mcgovern, discussed it with her and agree. This is a patient who presented with fever, some headache. Fever is still present. Weak and tired. On examination, febrile at 101.2. LUNGS: Fair air entry. CARDIOVASCULAR: First and second sounds normal. INVESTIGATIONS: ESR is 41. AST and ALT are somewhat elevated. C-reactive protein is 87.6. Amylase and lipase normal. CMV, IgG, IgM non-reactive. Hepatitis screen is negative. Blood parasite thick and thin smears are negative. ASSESSMENT: 1. Fever of unknown origin, non-specific. Some pulmonary involvement. Some hepatitis. Some cephalgia. 2. Essential hypertension. PLAN: At this point, empiric antibiotics are to continue. Will discuss with Dr. Goodman and see if LP is indicated. Blood cultures have been negative to now.
--- NOTE | 2016-07-24 23:05 | P.PN ---
Subjective Principal diagnosis: MICKEY This is a 70-year-old female who gives history that she tested positive for influenza sometime in May and completed a course of antimicrobial. She then went to [facility] on a mission trip from May 18 through June 01. While she was there she was feeling sick again and quite congested. She will return in a couple weeks later she developed chills, terrible headache , body aches. She has occasional cough but much better from before. She denies any nausea, vomiting, diarrhea. She states she's had decreased appetite and probably some weight loss but unknown amount. She came into [facility] emergency center for evaluation. Chest x-ray showed no acute cardiopulmonary process. CAT scan of the brain showed no acute findings. D- dimer was elevated at 5.[address] of the chest showed no pulmonary embolism. There was mild to moderate bronchial cardenas thickening with hazy diffuse areas of atelectasis. Bronchitis, uncontrolled as more atypical pneumonia and differential. Ultrasound of the bilateral lower extremities were negative for DVT. Blood cultures status received. Sputum was uncollected. Urine is ordered. Influenza testing is status received. White count was 8, temperature 101.7. AST 128, ALT 137. Albumin 3.4. Acute hepatitis panel is negative. Parasite malaria testing is in process. Today the patient relates that she's had a fever for 2 weeks. She continues to have some mild pulmonary symptoms of shortness of breath. Has significant fatigue and malaise.. Objective - Vital Signs Vital signs: Vital Signs Temp 101.2 F H 07/24/16 14:54 Pulse 71 07/24/16 14:54 Resp 20 07/24/16 16:00 BP 131/51 07/24/16 14:54 Pulse Ox 91 L 07/24/16 14:54 Intake & Output 07/24/16 07/24/16 07/25/16 06:59 18:59 06:59 Intake Total 800 800 Balance 800 800 Intake: Intake, IV Titration 800 800 Amount Sodium Chloride 0.9% 1, 800 800 000 ml @ 100 mls/hr IV . Q10H JOSE C Rx#:[id number] Other: # Voids 1 2 2 - Exam Gen: This is a 70-year-old female. She is sitting up in the edge of the bed and appears to be in no acute distress. No respiratory distress noted.and continues is to have a fever 101.4 HEENT: Head is atraumatic, normocephalic. Pupils equal, round. Sclerae is anicteric. Conjunctiva pink. Mucous members of the mouth are moist. No thrush noted. NECK: Supple. No JVD. No lymphadenopathy. No thyromegaly. LUNGS: Clear to auscultation. No wheezes or rhonchi. No intercostal retractions. HEART: Regular rate and rhythm. No murmur. ABDOMEN: Soft. Bowel sounds are present. No masses. No tenderness. No CVA tenderness. EXTREMITIES: No pedal edema. No calf tenderness. Dorsalis pedis +2 bilaterally. NEUROLOGICAL: Patient is awake, alert and oriented x3. - Labs CBC & Chem 7: 07/22/16 18:22 07/22/16 18: Labs: Microbiology - Last 24 Hours (Table) 07/22/16 18: Blood Culture - Preliminary Blood No Growth after 48 hours Laboratory Results WBC 8.0 k/uL (3.8-10.6) 07/22/16 18: RBC 4.44 m/uL (3.80-5.40) 07/22/16 18: Hgb 13.2 gm/dL (11.4-16.0) 07/22/16 18: Hct 39.0 % (34.0-46.0) 07/22/16 18: MCV 87.8 fL (80.0-100.0) 07/22/16 18: MCH 29.8 pg (25.0-35.0) 07/22/16 18: MCHC 34.0 g/dL (31.0-37.0) 07/22/16 18: RDW 12.6 % (11.5-15.5) 07/22/16 18: Plt Count 154 k/uL (150-450) 07/22/16 18:22 Neutrophils % 73 % 07/22/16 18:22 Lymphocytes % 21 % 07/22/16 18:22 Monocytes % 4 % 07/22/16 18:22 Eosinophils % 0 % 07/22/16 18:22 Basophils % 0 % 07/22/16 18:22 Neutrophils # 5.8 k/uL (1.3-7.7) 07/22/16 18:22 Lymphocytes # 1.7 k/uL (1.0-4.8) 07/22/16 18:22 Monocytes # 0.3 k/uL (0-1.0) 07/22/16 18:22 Eosinophils # 0.0 k/uL (0-0.7) 07/22/16 18:22 Basophils # 0.0 k/uL (0-0.2) 07/22/16 18:22 Manual Slide Review Performed 07/22/16 18:22 Poikilocytosis (manual Present 07/22/16 18:22 ESR 41 mm/hr (0-20) H 07/23/16 16:14 D-Dimer 5.48 mg/L FEU (<0.60) H 07/22/16 18:22 Sodium 132 mmol/L (137-145) L 07/22/16 18:22 Potassium 3.6 mmol/L (3.5-5.1) 07/22/16 18:22 Chloride 93 mmol/L (98-107) L 07/22/16 18:22 Carbon Dioxide 29 mmol/L (22-30) 07/22/16 18:22 Anion Gap 10 mmol/L 07/22/16 18:22 BUN 17 mg/dL (7-17) 07/22/16 18:22 Creatinine 0.85 mg/dL (0.52-1.04) 07/22/16 18:22 Est GFR (MDRD) Af Amer >60 (>60 ml/min/1.73 sqM) 07/22/16 18:22 Est GFR (MDRD) Non-Af >60 (>60 ml/min/1.73 sqM) 07/22/16 18:22 Glucose 120 mg/dL (74-99) H 07/22/16 18:22 Plasma Lactic Acid Joce 1.4 mmol/L (0.7-2.0) 07/22/16 18:22 Calcium 8.2 mg/dL (8.4-10.2) L 07/22/16 18:22 Magnesium 2.5 mg/dL (1.6-2.3) H 07/22/16 18:22 Total Bilirubin 0.8 mg/dL (0.2-1.3) 07/22/16 18:22 AST 128 U/L (14-36) H 07/22/16 18:22 ALT 137 U/L (9-52) H 07/22/16 18:22 Alkaline Phosphatase 94 U/L (38-126) 07/22/16 18:22 Total Creatine Kinase 42 U/L (30-135) 07/22/16 18:22 CK-MB (CK-2) 0.3 ng/mL (0.0-2.4) 07/22/16 18: CK-MB (CK-2) Rel Index 0.7 07/22/16 18:22 Troponin I <0.012 ng/mL (0.000-0.034) 07/22/16 18:22 C-Reactive Protein 87.6 mg/L (<10.0) H 07/23/16 17:27 Total Protein 6.3 g/dL (6.3-8.2) 07/22/16 18: Albumin 3.4 g/dL (3.5-5.0) L 07/22/16 18: Amylase 45 U/L (30-110) 07/22/16 18: Lipase 74 U/L (23-300) 07/22/16 18:22 Urine Color Yellow 07/23/16 20:40 Urine Appearance Clear (Clear) 07/23/16 20:40 Urine pH 5.5 (5.0-8.0) 07/23/16 20:40 Ur Specific [place] 1.010 (1.001-1.035) 07/23/16 20:40 Urine Protein 1+ (Negative) H 07/23/16 20:40 Urine Glucose (UA) Negative (Negative) 07/23/16 20:40 Urine Ketones Negative (Negative) 07/23/16 20:40 Urine Blood Small (Negative) H 07/23/16 20:40 Urine Nitrite Negative (Negative) 07/23/16 20:40 Urine Bilirubin Negative (Negative) 07/23/16 20:40 Urine Urobilinogen <2.0 mg/dL (<2.0) 07/23/16 20:40 Ur Leukocyte Esterase Negative (Negative) 07/23/16 20:40 Urine RBC 1 /hpf (0-5) 07/23/16 20:40 Urine WBC 4 /hpf (0-5) 07/23/16 20:40 Ur Squamous Epith Cells <1 /hpf (0-4) 07/23/16 20:40 Urine Bacteria Rare /hpf (None) H 07/23/16 20:40 Granular Casts 1 /lpf (0) 07/23/16 20:40 Urine Mucus Occasional /hpf (None) H 07/23/16 20:40 CMV IgG Ab Non-Reactive (Non-Reactive) 07/23/16 17:27 CMV IgM Ab Non-Reactive (Non-Reactive) 07/23/16 17:27 Hepatitis A IgM Ab NEGATIVE 07/22/16 18:22 Hep Bs Antigen Negative 07/22/16 18:22 Hep B Core IgM Ab NEGATIVE 07/22/16 18:22 Hep C IgG Ab Negative (Negative) 07/22/16 18:22 Bld Parasite Thin Smr None Observed 07/22/16 18:22 Bl Parasite Thick Smr None Observed 07/22/16 18:22 Microbiology 07/22/16 18:22 Blood Blood Culture - Preliminary No Growth after 48 hours Assessment and Plan (1) Fever of unknown origin Narrative/Plan: Pleasant 70-year-old woman who has an extensive travel history, 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 She is now relating that she has not been feeling well since March. Upon return from her trip her symptoms however have worsened. The last 2 weeks she's been having fevers up to 101 at times. Associated with chills fatigue and malaise. She relates that she's had almost continuous pneumonia since March. Was only well for short time while she was in [facility]. Patient also relates that she has some significant chronic sinus condition. At this time concerns to underlying infectious process related to her travel is possible, but she was symptomatically for her trip. Stool for ova and parasite is requested which is a full workup doing to her international travel. Evaluation for underlying autoimmune disease specifically vasculitis is in process. She has an elevated ESR and CRP. pANCA and evaluation of her liver have been requested at this time. The blood smears for malaria are negative. Immunoglobulin levels are also requested. Cultures are negative so far and would hold antibiotic therapy for now. Status: Acute
[2016-07-25] MEDS: SODIUM CHLORIDE 0.9% 1,000 ML IV SCH ×4 (00:58→22:14)
[2016-07-25 03:32] LABS: EBV - EA (IgG) <5.0 U/mL (<9.0); EBV - EBNA (IgG) <3.0 U/mL (<18.0); EBV - VCA (IgG) <10.0 U/mL (<18.0); EBV - VCA IgM <10.0 U/mL (<36.0)
--- NOTE | 2016-07-25 07:12 | XR ---
EXAMINATION TYPE: XR chest 2V DATE OF EXAM: 07/25/2016 6:55 AM COMPARISON: 07/25/2016 TECHNIQUE: PA and lateral views submitted. HISTORY: Fever FINDINGS: Left lower lobe infiltrate and small effusion. No interstitial edema or pneumothorax. Heart size stab le. Hypertrophic and degenerative change of the spine. Contrast within the bowel in the abdomen. IMPRESSION: 1. Small left effusion with basilar atelectasis or infiltrate.
[2016-07-25] MEDS: METOPROLOL TARTRATE 50 MG TAB PO SCH ×2 (08:18→20:23)
[2016-07-25] MEDS: ENOXAPARIN 40 MG/0.4 ML SYRINGE SQ SCH (08:18)
--- NOTE | 2016-07-25 08:35 | US ---
EXAMINATION TYPE: US abdomen complete DATE OF EXAM: 07/25/2016 7:47 AM COMPARISON: NONE CLINICAL HISTORY: elevated liver enzymes, travel. Fever of unknown origin EXAM MEASUREMENTS: Liver Length: 15.4 cm Gallbladder Wall: 0.5 cm CBD: 0.4 cm Spleen: 10.9 cm Right Kidney: 11.9 x 3.6 x 5.2 cm Left Kidney: 11.5 x 5.1 x 4.6 cm Pancreas: limitations due to overlying bowel content Liver: appears wnl Gallbladder: no evidence of stones, thickened edematous wall Evidence for sonographic Ordoñez's sign: No CBD: appears wnl Spleen: wnl Right Kidney: no evidence of hydronephrosis Left Kidney: no evidence of hydronephrosis Upper IVC: wnl Abd Aorta: portions obscured by overlying bowel, visualized portions appear wnl Limited views of the pancreas are normal. The liver is normal in size without evidence of biliary dilatation. The gallbladder wall is thickened measuring 5 mm. The distal common hepatic duct measures 4 mm. There is no evidence of cholelithiasis. The spleen is normal in size. Both kidneys appear normal. Visualized portions of aorta and IVC are normal. IMPRESSION: CONSIDER ACALCULOUS CHOLECYSTITIS.
--- NOTE | 2016-07-25 13:45 | P.PN ---
Subjective Principal diagnosis: Fever of unknown origin, progressive weakness This is a 70-year-old female with 2 weeks history of flulike symptoms, symptoms include low-grade fever, headaches, generalized aches and pains, no cough, no no chills, no shortness of breath, patient has been describing symptoms of weakness and poor appetite. Patient was in [facility] back in May for 2 weeks, and she had no clinical symptoms while in [facility]. Chest x-ray showed mostly atelectasis at the left base, same was noted on the CT of the chest. I reviewed the CT of the chest myself, and there is clearly evidence of bronchial wall thickening, and hazy areas of atelectasis at the bases. Again the patient had no cough, no hemoptysis, and no shortness of breath, no chest pain. The CT of the chest was suboptimal in quality because of motion artifacts. No evidence of thromboembolic disease noted. Patient was already seen by infectious disease on consultation for her acute febrile illness, and final recommendation is pending. The patient is seen again today 07/24/2016 in follow-up on the regular medical floor. She is awake and alert in no acute distress. She is still quite tired and fatigued. She did have another spike in temperature yesterday afternoon to 101.4. Currently afebrile. She is hemodynamically stable. She is maintaining good O2 saturations in the mid 90s on room air. No pulmonary complaints. Patient is seen again today 07/25/2016 in follow-up on the regular medical floor. She is awake and alert in no acute distress. She is somewhat stronger today as compared to yesterday. No shortness of breath, cough or congestion. He is maintaining good O2 saturations in the 90s on room air. She's been hemodynamically stable. No nausea vomiting or diarrhea. Her CMV screen was nonreactive. Sarah-Coffman viruses negative. Hepatitis screen negative. Parasite screen negative. Stool cultures pending. Blood cultures revealed no growth to date. Underlying autoimmune disease including vasculitis workup is in process as well. Abdominal ultrasound reveals possible acalculous cholecystitis. Otherwise unremarkable. Follow-up chest x-ray reveals small effusion with atelectasis at left lung base. She had another temperature spike yesterday afternoon approximately 3:00 at 101.2. Since that time she's been afebrile. Objective - Vital Signs Vital signs: Vital Signs Temp 98.6 F 07/25/16 07:00 Pulse 70 07/25/16 07:00 Resp 20 07/25/16 07:00 BP 137/71 07/25/16 07:00 Pulse Ox 93 L 07/25/16 07:00 Intake & Output 07/24/16 07/25/16 07/25/16 18:59 06:59 18:59 Intake Total 800 1600 240 Balance 800 1600 240 Intake: Intake, IV Titration 800 1600 Amount Sodium Chloride 0.9% 1, 800 1600 000 ml @ 100 mls/hr IV . Q10H JOSE C Rx#:[id number] Oral 240 Other: # Voids 2 2 - Exam GENERAL EXAM: Alert, fairly comfortable in no apparent distress. HEAD: Normocephalic. EYES: Normal reaction of pupils, equal size. NOSE: Clear with pink turbinates. THROAT: No erythema or exudates. NECK: No masses, no JVD. CHEST: No chest wall deformity. LUNGS: Equal air entry with no crackles, wheeze, rhonchi or dullness. CVS: S1 and S2 normal with no audible mumurs, regular rhythm. ABDOMEN: No hepatosplenomegaly, normal bowel sounds, no guarding or rigidity. SPINE: No scoliosis or deformity SKIN: No rashes CENTRAL NERVOUS SYSTEM: No focal deficits, tone is normal in all 4 extremities. Extremities: There is no peripheral edema. No clubbing, no cyanosis. Peripheral pulses are intact. - Labs CBC & Chem 7: 07/22/16 18:22 07/22/16 18:22 Labs: Microbiology - Last 24 Hours (Table) 07/22/16 18:22 Blood Culture - Preliminary Blood No Growth after 48 hours Assessment and Plan Plan: Impression: #1 Acute febrile illness with progressive weakness and fatigue, suspect acute viral illness. Recent travel to [facility]. CMV IgG and IgM negative. Hepatitis screen negative. Blood parasite thin smear negative. EBV screen negative. Immunoglobulin workup is being conducted. Stool for ova and parasites pending. [place] of the abdomen did reveal suspected acalculous cholecystitis. #2 Atelectasis of the lung bases, doubt pneumonia, PE ruled out. #3 Hypertension. #4 Elevated liver enzymes of unclear significance. Hepatitis screen negative. Plan: The patient was seen and evaluated by Dr. Shirley. Chest x-ray labs CT and ultrasound of the pelvis all reviewed. She is stable from the pulmonary standpoint. Her Levaquin has been discontinued. Infectious disease is on the case. She is on Lovenox for DVT prophylaxis. We will increase her activity as tolerated. We'll continue to follow.
--- NOTE | 2016-07-25 22:09 | P.PN ---
Subjective Principal diagnosis: MICKEY This is a 70-year-old female who gives history that she tested positive for influenza sometime in May and completed a course of antimicrobial. She then went to [facility] on a mission trip from May 18 through June 01. While she was there she was feeling sick again and quite congested. She will return in a couple weeks later she developed chills, terrible headache , body aches. She has occasional cough but much better from before. She denies any nausea, vomiting, diarrhea. She states she's had decreased appetite and probably some weight loss but unknown amount. She came into [facility] emergency center for evaluation. Chest x-ray showed no acute cardiopulmonary process. CAT scan of the brain showed no acute findings. D- dimer was elevated at 5.[address] of the chest showed no pulmonary embolism. There was mild to moderate bronchial cardenas thickening with hazy diffuse areas of atelectasis. Bronchitis, uncontrolled as more atypical pneumonia and differential. Ultrasound of the bilateral lower extremities were negative for DVT. Blood cultures status received. Sputum was uncollected. Urine is ordered. Influenza testing is status received. White count was 8, temperature 101.7. AST 128, ALT 137. Albumin 3.4. Acute hepatitis panel is negative. Parasite malaria testing is in process. Today the patient relates that she's had a fever for 2 weeks. She continues to have some mild pulmonary symptoms of shortness of breath. Has significant fatigue and malaise.. Is feeling somewhat better today. Fever has now resolved. It's been more than a without a fever. Other than fatigue and malaise she is improved. Objective - Vital Signs Vital signs: Vital Signs Temp 98.6 F 07/25/16 15:00 Pulse 70 07/25/16 15:00 Resp 20 07/25/16 15:00 BP 124/71 07/25/16 15:00 Pulse Ox 95 07/25/16 15:00 Intake & Output 07/25/16 07/25/16 07/26/16 06:59 18:59 06:59 Intake Total 1600 1040 Balance 1600 1040 Intake: Intake, IV Titration 1600 800 Amount Sodium Chloride 0.9% 1, 1600 800 000 ml @ 100 mls/hr IV . Q10H JOSE C Rx#:[id number] Oral 240 Other: # Voids 2 2 - Exam Gen: This is a 70-year-old female. She is sitting up in the edge of the bed and appears to be in no acute distress. No respiratory distress noted.and continues is to have a fever 101.4 HEENT: Head is atraumatic, normocephalic. Pupils equal, round. Sclerae is anicteric. Conjunctiva pink. Mucous members of the mouth are moist. No thrush noted. NECK: Supple. No JVD. No lymphadenopathy. No thyromegaly. LUNGS: Clear to auscultation. No wheezes or rhonchi. No intercostal retractions. HEART: Regular rate and rhythm. No murmur. ABDOMEN: Soft. Bowel sounds are present. No masses. No tenderness. No CVA tenderness. EXTREMITIES: No pedal edema. No calf tenderness. Dorsalis pedis +2 bilaterally. NEUROLOGICAL: Patient is awake, alert and oriented x3. - Labs CBC & Chem 7: 07/22/16 18:22 07/22/16 18: Labs: Microbiology - Last 24 Hours (Table) 07/22/16 18: Blood Culture - Preliminary Blood No Growth after 72 hours Laboratory Results WBC 8.0 k/uL (3.8-10.6) 07/22/16 18: RBC 4.44 m/uL (3.80-5.40) 07/22/16 18: Hgb 13.2 gm/dL (11.4-16.0) 07/22/16 18: Hct 39.0 % (34.0-46.0) 07/22/16 18: MCV 87.8 fL (80.0-100.0) 07/22/16 18: MCH 29.8 pg (25.0-35.0) 07/22/16 18: MCHC 34.0 g/dL (31.0-37.0) 07/22/16 18: RDW 12.6 % (11.5-15.5) 07/22/16 18: Plt Count 154 k/uL (150-450) 07/22/16 18:22 Neutrophils % 73 % 07/22/16 18:22 Lymphocytes % 21 % 07/22/16 18:22 Monocytes % 4 % 07/22/16 18:22 Eosinophils % 0 % 07/22/16 18:22 Basophils % 0 % 07/22/16 18:22 Neutrophils # 5.8 k/uL (1.3-7.7) 07/22/16 18:22 Lymphocytes # 1.7 k/uL (1.0-4.8) 07/22/16 18:22 Monocytes # 0.3 k/uL (0-1.0) 07/22/16 18:22 Eosinophils # 0.0 k/uL (0-0.7) 07/22/16 18:22 Basophils # 0.0 k/uL (0-0.2) 07/22/16 18:22 Manual Slide Review Performed 07/22/16 18:22 Poikilocytosis (manual Present 07/22/16 18:22 ESR 41 mm/hr (0-20) H 07/23/16 16:14 D-Dimer 5.48 mg/L FEU (<0.60) H 07/22/16 18:22 Sodium 132 mmol/L (137-145) L 07/22/16 18:22 Potassium 3.6 mmol/L (3.5-5.1) 07/22/16 18:22 Chloride 93 mmol/L (98-107) L 07/22/16 18:22 Carbon Dioxide 29 mmol/L (22-30) 07/22/16 18:22 Anion Gap 10 mmol/L 07/22/16 18:22 BUN 17 mg/dL (7-17) 07/22/16 18:22 Creatinine 0.85 mg/dL (0.52-1.04) 07/22/16 18:22 Est GFR (MDRD) Af Amer >60 (>60 ml/min/1.73 sqM) 07/22/16 18:22 Est GFR (MDRD) Non-Af >60 (>60 ml/min/1.73 sqM) 07/22/16 18:22 Glucose 120 mg/dL (74-99) H 07/22/16 18:22 Plasma Lactic Acid Joce 1.4 mmol/L (0.7-2.0) 07/22/16 18:22 Calcium 8.2 mg/dL (8.4-10.2) L 07/22/16 18:22 Magnesium 2.5 mg/dL (1.6-2.3) H 07/22/16 18:22 Total Bilirubin 0.8 mg/dL (0.2-1.3) 07/22/16 18:22 AST 128 U/L (14-36) H 07/22/16 18:22 ALT 137 U/L (9-52) H 07/22/16 18:22 Alkaline Phosphatase 94 U/L (38-126) 07/22/16 18:22 Total Creatine Kinase 42 U/L (30-135) 07/22/16 18:22 CK-MB (CK-2) 0.3 ng/mL (0.0-2.4) 07/22/16 18: CK-MB (CK-2) Rel Index 0.7 07/22/16 18: Troponin I <0.012 ng/mL (0.000-0.034) 07/22/16 18: C-Reactive Protein 87.6 mg/L (<10.0) H 07/23/16 17:27 Total Protein 6.3 g/dL (6.3-8.2) 07/22/16 18: Albumin 3.4 g/dL (3.5-5.0) L 07/22/16 18: Amylase 45 U/L (30-110) 07/22/16 18: Lipase 74 U/L (23-300) 07/22/16 18:22 Urine Color Yellow 07/23/16 20:40 Urine Appearance Clear (Clear) 07/23/16 20:40 Urine pH 5.5 (5.0-8.0) 07/23/16 20:40 Ur Specific [place] 1.010 (1.001-1.035) 07/23/16 20:40 Urine Protein 1+ (Negative) H 07/23/16 20:40 Urine Glucose (UA) Negative (Negative) 07/23/16 20:40 Urine Ketones Negative (Negative) 07/23/16 20:40 Urine Blood Small (Negative) H 07/23/16 20:40 Urine Nitrite Negative (Negative) 07/23/16 20:40 Urine Bilirubin Negative (Negative) 07/23/16 20:40 Urine Urobilinogen <2.0 mg/dL (<2.0) 07/23/16 20:40 Ur Leukocyte Esterase Negative (Negative) 07/23/16 20:40 Urine RBC 1 /hpf (0-5) 07/23/16 20:40 Urine WBC 4 /hpf (0-5) 07/23/16 20:40 Ur Squamous Epith Cells <1 /hpf (0-4) 07/23/16 20:40 Urine Bacteria Rare /hpf (None) H 07/23/16 20:40 Granular Casts 1 /lpf (0) 07/23/16 20:40 Urine Mucus Occasional /hpf (None) H 07/23/16 20:40 CMV IgG Ab Non-Reactive (Non-Reactive) 07/23/16 17: CMV IgM Ab Non-Reactive (Non-Reactive) 07/23/16 17: EBV Capsid Ag IgG Ab <10.0 U/mL (<18.0) 07/23/16 17: EBV Capsid Ag IgM Ab <10.0 U/mL (<36.0) 07/23/16 17: EBV Early Antigen IgG <5.0 U/mL (<9.0) 07/23/16 17: EBV Nuclear Ag IgG Ab <3.0 U/mL (<18.0) 07/23/16 17:27 Hepatitis A IgM Ab NEGATIVE 07/22/16 18:22 Hep Bs Antigen Negative 07/22/16 18:22 Hep B Core IgM Ab NEGATIVE 07/22/16 18:22 Hep C IgG Ab Negative (Negative) 07/22/16 18:22 Bld Parasite Thin Smr None Observed 07/22/16 18:22 Bl Parasite Thick Smr None Observed 07/22/16 18:22 Microbiology 07/22/16 18:22 Blood Blood Culture - Preliminary No Growth after 72 hours Assessment and Plan (1) Fever of unknown origin Narrative/Plan: Pleasant 70-year-old woman who has an extensive travel history, 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 She is now relating that she has not been feeling well since March. Upon return from her trip her symptoms however have worsened. The last 2 weeks she's been having fevers up to 101 at times. Associated with chills fatigue and malaise. She relates that she's had almost continuous pneumonia since March. Was only well for short time while she was in [facility]. Patient also relates that she has some significant chronic sinus condition. At this time concerns to underlying infectious process related to her travel is possible, but she was symptomatically for her trip. Stool for ova and parasite is requested which is a full workup doing to her international travel. Evaluation for underlying autoimmune disease specifically vasculitis is in process. She has an elevated ESR and CRP. pANCA and evaluation of her liver have been requested at this time. The blood smears for malaria are negative. Immunoglobulin levels are also requested. Cultures are negative so far and would hold antibiotic therapy for now. Autoimmune workup is in process. Patient is now without fever for a day. Likely will be also be discharged home tomorrow with close outpatient follow-up. Follow-up with the laboratories that have been sent. Possible referral to rheumatology if autoimmune disease is noted. The ultrasound showed the possibility of acalculous cholecystitis but her physical exam does not relate to significant tenderness in the gallbladder area. Certainly will be monitored if she has ongoing fever. Status: Acute
--- NOTE | 2016-07-25 22:16 | PN ---
DATE OF SERVICE: 07/25/2016 PRESENTING COMPLAINT: Weak and tired. INTERVAL HISTORY: This is a patient who presented with very nonspecific symptoms of headache, chills, sleepy, tired and general body aches. Today the patient appears tired, lying in her bed. Does not have much energy, able to answer questions, ambulatory to and from the bathroom. States she feels very tired. Review of systems done for constitutional, cardiovascular, GI, pulmonary, with relevant findings as above. CURRENT MEDICATIONS: Lovenox, Levaquin, Lopressor. PHYSICAL EXAMINATION: VITAL SIGNS: Temperature 98.6, pulse 70, respirations 20, blood pressure 124/71, oxygen saturation 95% on room air. GENERAL APPEARANCE: Patient appears pale, tired, disinterested in activity. EYES: Pupils equal. Conjunctivae normal. NECK: JVD not raised. Mass not palpable. LUNGS: Diminished bilaterally. Clear to auscultation to the upper lobes. RESPIRATORY: Effort normal, unlabored. CARDIOVASCULAR: First and second sounds noted. No edema. ABDOMEN: Soft, nontender. Liver and spleen not palpable. PSYCHIATRY: Alert and oriented x3. Mood and affect normal. INVESTIGATIONS: No new labs to report. Abdominal ultrasound consider acalculous cholecystitis. ASSESSMENT: 1. Fever of unknown origin, nonspecific some pulmonary involvement. Some hepatitis. Some cephalgia. 2. Essential hypertension. PLAN: At this point empiric antibiotics are to be continued. We will continue to discuss patient case with Dr. Goodman to determine if lumbar puncture is indicated. Blood cultures remain negative up to this point. Will continue to follow. Patient was seen and examined by nurse practitioner, Mary Mcgovern and all elements of the case discussed with attending, Dr. Bray. I performed a history and physical examination of this patient and discussed the same with the dictator. I agree with the dictator's note. Any additional findings/opinions, etc. will be noted.
[2016-07-25] MEDS: ACETAMINOPHEN TAB 325 MG TAB PO PRN (22:48)
[2016-07-26] MEDS: ENOXAPARIN 40 MG/0.4 ML SYRINGE SQ SCH (08:52)
[2016-07-26] MEDS: METOPROLOL TARTRATE 50 MG TAB PO SCH ×2 (08:52→20:24)
--- NOTE | 2016-07-26 10:44 | PN ---
DATE IF SERVICE: 07/25/2016 ATTENDING NOTE: This patient was examined by me yesterday on 07/25/2016. I reviewed the note of my nurse practitioner, Ms. Mcgovern, discussed and agree with the same. Patient admitted with FUO. Feels a bit more perky. As discussed with Dr. Goodman, went ahead and discontinued the antibiotics. The patient starting some diet. No new symptoms are present. On examination, the patient's last fever was 101.2 on 07/24/2016 at 1454. LUNGS: Slightly decreased breath sounds. CARDIOVASCULAR: First and second sounds normal. ABDOMEN: Soft, nontender. PSYCHIATRY: Alert, awake. DERMATOLOGICAL: Nothing. INVESTIGATIONS: No new blood work. ASSESSMENT: Fever of unknown origin work-up in place. As discussed with Dr. Goodman. Antibiotics have been discontinued. Will repeat blood cultures after 48 hours being off antibiotics and follow with Dr. Goodman. Care was discussed with the patient.
[2016-07-26 12:52] LABS: Basophils % (A) 0 %; CH 29.7; CHCM 33.3; Eosinophils % (A) 1 %; HCT 36.2 % (34.0-46.0); HGB 12.3 gm/dL (11.4-16.0); Luc # (Auto) 0.11; Luc % (Auto) 2; Lymphocytes # (A) 1.4 k/uL (1.0-4.8); Lymphocytes % (A) 22 %; MCH 30.5 pg (25.0-35.0); MCHC 34.1 g/dL (31.0-37.0); MCV 89.4 fL (80.0-100.0); Mean Platelet Volume 7.7; Monocytes # (A) 0.3 k/uL (0-1.0); Monocytes % (A) 4 %; Neutrophils # (A) 4.5 k/uL (1.3-7.7); Neutrophils % (A) 72 %; RBC 4.05 m/uL (3.80-5.40); RDW 12.8 % (11.5-15.5); WBC 6.3 k/uL (3.8-10.6)
[2016-07-26 12:56] LABS: ALT 274 U/L (9-52); AST 349 U/L (14-36); Alkaline Phosphatase 117 U/L (38-126); Anion Gap 8 mmol/L; Blood Urea Nitrogen 10 mg/dL (7-17); Calcium 8.2 mg/dL (8.4-10.2); Carbon Dioxide 28 mmol/L (22-30); Chloride 100 mmol/L (98-107); Glucose 105 mg/dL (74-99); Non-African American GFR(MDRD) >60 (>60 ml/min/1.73 sqM); Potassium 3.4 mmol/L (3.5-5.1); Sodium 136 mmol/L (137-145); Total Bilirubin 0.7 mg/dL (0.2-1.3); Total Protein 5.9 g/dL (6.3-8.2)
--- NOTE | 2016-07-26 13:39 | P.PN ---
Subjective Principal diagnosis: Fever of unknown origin, progressive weakness This is a 70-year-old female with 2 weeks history of flulike symptoms, symptoms include low-grade fever, headaches, generalized aches and pains, no cough, no no chills, no shortness of breath, patient has been describing symptoms of weakness and poor appetite. Patient was in [facility] back in May for 2 weeks, and she had no clinical symptoms while in [facility]. Chest x-ray showed mostly atelectasis at the left base, same was noted on the CT of the chest. I reviewed the CT of the chest myself, and there is clearly evidence of bronchial wall thickening, and hazy areas of atelectasis at the bases. Again the patient had no cough, no hemoptysis, and no shortness of breath, no chest pain. The CT of the chest was suboptimal in quality because of motion artifacts. No evidence of thromboembolic disease noted. Patient was already seen by infectious disease on consultation for her acute febrile illness, and final recommendation is pending. The patient is seen again today 07/24/2016 in follow-up on the regular medical floor. She is awake and alert in no acute distress. She is still quite tired and fatigued. She did have another spike in temperature yesterday afternoon to 101.4. Currently afebrile. She is hemodynamically stable. She is maintaining good O2 saturations in the mid 90s on room air. No pulmonary complaints. Patient is seen again today 07/25/2016 in follow-up on the regular medical floor. She is awake and alert in no acute distress. She is somewhat stronger today as compared to yesterday. No shortness of breath, cough or congestion. He is maintaining good O2 saturations in the 90s on room air. She's been hemodynamically stable. No nausea vomiting or diarrhea. Her CMV screen was nonreactive. Sarah-Coffman viruses negative. Hepatitis screen negative. Parasite screen negative. Stool cultures pending. Blood cultures revealed no growth to date. Underlying autoimmune disease including vasculitis workup is in process as well. Abdominal ultrasound reveals possible acalculous cholecystitis. Otherwise unremarkable. Follow-up chest x-ray reveals small effusion with atelectasis at left lung base. She had another temperature spike yesterday afternoon approximately 3:00 at 101.2. Since that time she's been afebrile. The patient is seen again today 07/26/2016 in follow-up on the regular medical floor. She remains awake and alert in no acute distress. She did develop another spike in temperature again last evening up to 101.9. Is currently afebrile at 97.6. She has been receiving acetaminophen and her liver enzymes have gone up currently AST of 349, ALT to 74. She is maintaining good O2 saturations in the 90s on room air. She really has no pulmonary complaints. No shortness of breath, cough or congestion. She's been hemodynamically stable. Objective - Vital Signs Vital signs: Vital Signs Temp 97.6 F 07/26/16 07:00 Pulse 70 07/26/16 07:00 Resp 22 07/26/16 07:00 BP 136/66 07/26/16 07:00 Pulse Ox 94 L 07/26/16 07:00 Intake & Output 07/25/16 07/26/16 07/26/16 18:59 06:59 18:59 Intake Total 1040 500 240 Balance 1040 500 240 Intake: Intake, IV Titration 800 Amount Sodium Chloride 0.9% 1, 800 000 ml @ 100 mls/hr IV . Q10H JOSE C Rx#:[id number] Oral 240 500 240 Other: Voiding Method Toilet # Voids 2 2 - Exam GENERAL EXAM: Alert, fairly comfortable in no apparent distress. HEAD: Normocephalic. EYES: Normal reaction of pupils, equal size. NOSE: Clear with pink turbinates. THROAT: No erythema or exudates. NECK: No masses, no JVD. CHEST: No chest wall deformity. LUNGS: Equal air entry with no crackles, wheeze, rhonchi or dullness. CVS: S1 and S2 normal with no audible mumurs, regular rhythm. ABDOMEN: No hepatosplenomegaly, normal bowel sounds, no guarding or rigidity. SPINE: No scoliosis or deformity SKIN: No rashes CENTRAL NERVOUS SYSTEM: No focal deficits, tone is normal in all 4 extremities. Extremities: There is no peripheral edema. No clubbing, no cyanosis. Peripheral pulses are intact. - Labs CBC & Chem 7: 07/26/16 12:25 07/26/16 12:25 Labs: Abnormal Lab Results - Last 24 Hours (Table) 07/26/16 07/26/16 Range/Units 12:25 12:25 Plt Count 133 L (150-450) k/uL Sodium 136 L (137-145) mmol/L Potassium 3.4 L (3.5-5.1) mmol/L Glucose 105 H (74-99) mg/dL Calcium 8.2 L (8.4-10.2) mg/dL AST 349 H (14-36) U/L ALT 274 H (9-52) U/L Total Protein 5.9 L (6.3-8.2) g/dL Albumin 2.9 L (3.5-5.0) g/dL Microbiology - Last 24 Hours (Table) 07/22/16 18:22 Blood Culture - Preliminary Blood No Growth after 72 hours Assessment and Plan Plan: Impression: #1 Acute febrile illness with progressive weakness and fatigue, suspect acute viral illness. Recent travel to [facility]. CMV IgG and IgM negative. Hepatitis screen negative. Blood parasite thin smear negative. EBV screen negative. Immunoglobulin workup is being conducted. Stool for ova and parasites pending. Tullos of the abdomen did reveal suspected acalculous cholecystitis. #2 Atelectasis of the lung bases, doubt pneumonia, PE ruled out. There is some atelectatic changes in the lung bases appreciated only on computed tomography scan not on the chest x-ray. No symptoms. #3 Hypertension. #4 Elevated liver enzymes of unclear significance. Hepatitis screen negative. Plan: The patient was seen and evaluated by Dr. Shirley. She is stable from the pulmonary standpoint. Once discharged she could follow-up in our office for repeat chest x-ray. Otherwise no other pulmonary recommendations.
[2016-07-26 13:47] LABS: C-ANCA <1:20 Titer (<1:20); P-ANCA <1:20 Titer (<1:20)
[2016-07-26 15:39] LABS: Hepatitis B Surface Ag Index 0.08
[2016-07-26] MEDS: SODIUM CHLORIDE 0.9% 1,000 ML IV SCH ×2 (15:43→23:57)
[2016-07-26 15:45] LABS: Hepatitis B Core IgM Index 0.03
[2016-07-26 15:56] LABS: Hepatitis C Virus IgG Ab Negative (Negative); Hepatitis C Virus IgG Index 0.06
--- NOTE | 2016-07-26 21:18 | P.PN ---
Subjective Principal diagnosis: MICKEY This is a 70-year-old female who gives history that she tested positive for influenza sometime in May and completed a course of antimicrobial. 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 While she was there she was feeling sick again and quite congested. She will return in a couple weeks later she developed chills, terrible headache , body aches. She has occasional cough but much better from before. She denies any nausea, vomiting, diarrhea. She states she's had decreased appetite and probably some weight loss but unknown amount. She came into [facility] emergency center for evaluation. Chest x-ray showed no acute cardiopulmonary process. CAT scan of the brain showed no acute findings. D- dimer was elevated at 5.[address] of the chest showed no pulmonary embolism. There was mild to moderate bronchial cardenas thickening with hazy diffuse areas of atelectasis. Bronchitis, uncontrolled as more atypical pneumonia and differential. Ultrasound of the bilateral lower extremities were negative for DVT. Blood cultures status received. Sputum was uncollected. Urine is ordered. Influenza testing is status received. White count was 8, temperature 101.7. AST 128, ALT 137. Albumin 3.4. Acute hepatitis panel is negative. Parasite malaria testing is in process. Today the patient relates that she's had a fever for 2 weeks. She continues to have some mild pulmonary symptoms of shortness of breath. Has significant fatigue and malaise.. Is feeling somewhat better today. However had a fever again last evening. Is having some abdominal pain. Is having some malaise. Objective - Vital Signs Vital signs: Vital Signs Temp 97.3 F L 07/26/16 15:00 Pulse 77 07/26/16 15:00 Resp 22 07/26/16 15:00 BP 144/73 07/26/16 15:00 Pulse Ox 93 L 07/26/16 15:00 Intake & Output 07/26/16 07/26/16 07/27/16 06:59 18:59 06:59 Intake Total 500 480 Balance 500 480 Intake: Oral 500 480 Other: Voiding Method Toilet # Voids 2 2 T-max of 101.9 noted last night - Exam Gen: This is a 70-year-old female. She is sitting up in the edge of the bed and appears to be in no acute distress. No respiratory distress noted.and continues is to have a fever 101.4 HEENT: Head is atraumatic, normocephalic. Pupils equal, round. Sclerae is anicteric. Conjunctiva pink. Mucous members of the mouth are moist. No thrush noted. NECK: Supple. No JVD. No lymphadenopathy. No thyromegaly. LUNGS: Clear to auscultation. No wheezes or rhonchi. No intercostal retractions. HEART: Regular rate and rhythm. No murmur. ABDOMEN: Soft. Bowel sounds are present. No masses. Has just some minimal tenderness in the right upper quadrant and epigastrium. No CVA tenderness. EXTREMITIES: No pedal edema. No calf tenderness. Dorsalis pedis +2 bilaterally. NEUROLOGICAL: Patient is awake, alert and oriented x3. - Labs CBC & Chem 7: 07/26/16 12:25 07/26/16 12:25 Labs: Abnormal Lab Results - Last 24 Hours (Table) 07/26/16 07/26/16 Range/Units 12:25 12:25 Plt Count 133 L (150-450) k/uL Sodium 136 L (137-145) mmol/L Potassium 3.4 L (3.5-5.1) mmol/L Glucose 105 H (74-99) mg/dL Calcium 8.2 L (8.4-10.2) mg/dL AST 349 H (14-36) U/L ALT 274 H (9-52) U/L Total Protein 5.9 L (6.3-8.2) g/dL Albumin 2.9 L (3.5-5.0) g/dL Microbiology - Last 24 Hours (Table) 07/22/16 18:22 Blood Culture - Preliminary Blood No Growth after 96 hours Laboratory Results WBC 6.3 k/uL (3.8-10.6) 07/26/16 12:25 RBC 4.05 m/uL (3.80-5.40) 07/26/16 12:25 Hgb 12.3 gm/dL (11.4-16.0) 07/26/16 12:25 Hct 36.2 % (34.0-46.0) 07/26/16 12:25 MCV 89.4 fL (80.0-100.0) 07/26/16 12:25 MCH 30.5 pg (25.0-35.0) 07/26/16 12:25 MCHC 34.1 g/dL (31.0-37.0) 07/26/16 12:25 RDW 12.8 % (11.5-15.5) 07/26/16 12:25 Plt Count 133 k/uL (150-450) L 07/26/16 12:25 Neutrophils % 72 % 07/26/16 12:25 Lymphocytes % 22 % 07/26/16 12:25 Monocytes % 4 % 07/26/16 12:25 Eosinophils % 1 % 07/26/16 12:25 Basophils % 0 % 07/26/16 12:25 Neutrophils # 4.5 k/uL (1.3-7.7) 07/26/16 12:25 Lymphocytes # 1.4 k/uL (1.0-4.8) 07/26/16 12:25 Monocytes # 0.3 k/uL (0-1.0) 07/26/16 12:25 Eosinophils # 0.0 k/uL (0-0.7) 07/26/16 12:25 Basophils # 0.0 k/uL (0-0.2) 07/26/16 12:25 Manual Slide Review Performed 07/22/16 18:22 Poikilocytosis (manual Present 07/22/16 18:22 ESR 41 mm/hr (0-20) H 07/23/16 16:14 D-Dimer 5.48 mg/L FEU (<0.60) H 07/22/16 18:22 Sodium 136 mmol/L (137-145) L 07/26/16 12:25 Potassium 3.4 mmol/L (3.5-5.1) L 07/26/16 12:25 Chloride 100 mmol/L (98-107) 07/26/16 12:25 Carbon Dioxide 28 mmol/L (22-30) 07/26/16 12:25 Anion Gap 8 mmol/L 07/26/16 12:25 BUN 10 mg/dL (7-17) 07/26/16 12:25 Creatinine 0.68 mg/dL (0.52-1.04) 07/26/16 12:25 Est GFR (MDRD) Af Amer >60 (>60 ml/min/1.73 sqM) 07/26/16 12:25 Est GFR (MDRD) Non-Af >60 (>60 ml/min/1.73 sqM) 07/26/16 12:25 Glucose 105 mg/dL (74-99) H 07/26/16 12:25 Plasma Lactic Acid Joce 1.4 mmol/L (0.7-2.0) 07/22/16 18: Calcium 8.2 mg/dL (8.4-10.2) L 07/26/16 12:25 Magnesium 2.5 mg/dL (1.6-2.3) H 07/22/16 18:22 Total Bilirubin 0.7 mg/dL (0.2-1.3) 07/26/16 12:25 AST 349 U/L (14-36) H 07/26/16 12:25 ALT 274 U/L (9-52) H 07/26/16 12:25 Alkaline Phosphatase 117 U/L (38-126) 07/26/16 12:25 Total Creatine Kinase 42 U/L (30-135) 07/22/16 18:22 CK-MB (CK-2) 0.3 ng/mL (0.0-2.4) 07/22/16 18: CK-MB (CK-2) Rel Index 0.7 07/22/16 18:22 Troponin I <0.012 ng/mL (0.000-0.034) 07/22/16 18:22 C-Reactive Protein 87.6 mg/L (<10.0) H 07/23/16 17:27 Total Protein 5.9 g/dL (6.3-8.2) L 07/26/16 12:25 Albumin 2.9 g/dL (3.5-5.0) L 07/26/16 12:25 Amylase 45 U/L (30-110) 07/22/16 18:22 Lipase 74 U/L (23-300) 07/22/16 18:22 Urine Color Yellow 07/23/16 20:40 Urine Appearance Clear (Clear) 07/23/16 20:40 Urine pH 5.5 (5.0-8.0) 07/23/16 20:40 Ur Specific [place] 1.010 (1.001-1.035) 07/23/16 20:40 Urine Protein 1+ (Negative) H 07/23/16 20:40 Urine Glucose (UA) Negative (Negative) 07/23/16 20:40 Urine Ketones Negative (Negative) 07/23/16 20:40 Urine Blood Small (Negative) H 07/23/16 20:40 Urine Nitrite Negative (Negative) 07/23/16 20:40 Urine Bilirubin Negative (Negative) 07/23/16 20:40 Urine Urobilinogen <2.0 mg/dL (<2.0) 07/23/16 20:40 Ur Leukocyte Esterase Negative (Negative) 07/23/16 20:40 Urine RBC 1 /hpf (0-5) 07/23/16 20:40 Urine WBC 4 /hpf (0-5) 07/23/16 20:40 Ur Squamous Epith Cells <1 /hpf (0-4) 07/23/16 20:40 Urine Bacteria Rare /hpf (None) H 07/23/16 20:40 Granular Casts 1 /lpf (0) 07/23/16 20:40 Urine Mucus Occasional /hpf (None) H 07/23/16 20:40 IgG 800 mg/dL (700 - 1600) 07/25/16 08:47 IgA 293 mg/dL (70 - 400) 07/25/16 08:47 IgM 85 mg/dL (40 - 230) 07/25/16 08:47 IgE 29.2 IU/mL (<114.0) 07/25/16 08:47 c-ANCA <1:20 Titer (<1:20) 07/25/16 08:47 p-ANCA <1:20 Titer (<1:20) 07/25/16 08:47 CMV IgG Ab Non-Reactive (Non-Reactive) 07/23/16 17: CMV IgM Ab Non-Reactive (Non-Reactive) 07/23/16: EBV Capsid Ag IgG Ab <10.0 U/mL (<18.0) 07/23/16 EBV Capsid Ag IgM Ab <10.0 U/mL (<36.0) 07/23/16 EBV Early Antigen IgG <5.0 U/mL (<9.0) 07/23/16 EBV Nuclear Ag IgG Ab <3.0 U/mL (<18.0) 05/22/17 17:27 Hepatitis A IgM Ab NEGATIVE 07/26/16 12:25 Hep Bs Antigen Negative 07/26/16 12:25 Hep B Core IgM Ab NEGATIVE 07/26/16 12:25 Hep C IgG Ab Negative (Negative) 07/26/16 12:25 Bld Parasite Thin Smr None Observed 07/22/16 18:22 Bl Parasite Thick Smr None Observed 07/22/16 18:22 Microbiology 07/22/16 18:22 Blood Blood Culture - Preliminary No Growth after 96 hours Assessment and Plan (1) Fever of unknown origin Narrative/Plan: Pleasant 70-year-old woman who has an extensive travel history, 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 She is now relating that she has not been feeling well since March. Upon return from her trip her symptoms however have worsened. The last 2 weeks she's been having fevers up to 101 at times. Associated with chills fatigue and malaise. She relates that she's had almost continuous pneumonia since March. Was only well for short time while she was in [facility]. Patient also relates that she has some significant chronic sinus condition. At this time concerns to underlying infectious process related to her travel is possible, but she was symptomatically for her trip. Stool for ova and parasite is requested which is a full workup doing to her international travel. Evaluation for underlying autoimmune disease specifically vasculitis is in process. She has an elevated ESR and CRP. pANCA and evaluation of her liver have been requested at this time. The blood smears for malaria are negative. Immunoglobulin levels are also requested. Cultures are negative so far and would hold antibiotic therapy for now. Autoimmune workup is in process. And so far has been negative. Blood work from this morning does show evidence of the increasing AST ALT. Constantly ongoing concern for the possibility that the acalculous cholecystitis could be the etiology for FUO. HIDA scan is requested. Renny level and antimitochondrial antibodies in process HIDA scan if markedly abnormal with that indicate the need for surgical consult and potential cholecystectomy. Status: Acute
--- NOTE | 2016-07-26 22:54 | PN ---
DATE OF SERVICE: 07/26/2016 PRESENTING COMPLAINT: Weak and tired. INTERVAL HISTORY: This is a patient who presented with very nonspecific symptoms of headache, chills, sleepy tired and general body aches, fever, of unknown origin. Today, the patient appears anxious to go home, lying in bed, just took a shower. States she has more energy today, however, still does feel quite tired. Patient is able to answer questions, ambulatory to and from the bathroom, walking in the halls. Review of systems done for constitutional, cardiovascular, GI, pulmonary, with relevant findings as above. CURRENT MEDICATIONS: 1. Lovenox. 2. Lopressor. PHYSICAL EXAMINATION: VITAL SIGNS: Temperature 97.6, respiratory rate 22, blood pressure 136/66, oxygen saturation 94% on room air. GENERAL APPEARANCE: Patient is lying on the bed, fully clothed expecting to go home. No distress noted. EYES: Pupils equal. Conjunctivae normal. NECK: JVD not raised. Mass not palpable. LUNGS: Diminished breath sounds bilaterally. RESPIRATORY: Effort normal, unlabored. CARDIOVASCULAR: First and second sounds noted. No edema. ABDOMEN: Soft, nontender. Liver and spleen not palpable. PSYCHIATRY: Alert and oriented x3. Mood and affect are normal. INVESTIGATIONS: White blood cell count 6.3, platelet count 133, sodium 136, potassium 3.4, AST 349, ALT 274, C-reactive protein 87.6 from 07/23. Abdominal ultrasound reveals consideration of acalculous cholecystitis. ASSESSMENT: 1. Fever of unknown origin, nonspecific, patient had a fever overnight. Questioning, possible hepatic source, possible cephalgia. 2. Essential hypertension. PLAN: Antibiotics continue to remain on hold. Will consider possibility of reculturing and/or possible lumbar puncture if indicated once we discuss with infectious disease. Blood cultures remained negative up to this point. Additionally patient has had a bump in her liver function tests. We will continue to monitor closely. Patient was seen and examined by nurse practitioner, Mary Mcgovern, and all elements of the case discussed with attending, Dr. Bray. I performed a history and physical examination of this patient and discussed the same with the dictator. I agree with the dictator's note. Any additional findings/opinions, etc. will be noted.
[2016-07-27 08:30] LABS: Basophils % (A) 0 %; CHCM 34.3; Eosinophils # (A) 0.1 k/uL (0-0.7); Eosinophils % (A) 1 %; HCT 35.7 % (34.0-46.0); HDW 2.86; HGB 12.2 gm/dL (11.4-16.0); Luc # (Auto) 0.14; Luc % (Auto) 2; Lymphocytes # (A) 1.6 k/uL (1.0-4.8); Lymphocytes % (A) 28 %; MCH 30.1 pg (25.0-35.0); MCHC 34.2 g/dL (31.0-37.0); MCV 87.8 fL (80.0-100.0); Mean Platelet Volume 7.3; Monocytes # (A) 0.2 k/uL (0-1.0); Monocytes % (A) 4 %; Neutrophils # (A) 3.8 k/uL (1.3-7.7); Neutrophils % (A) 65 %; RBC 4.07 m/uL (3.80-5.40); RDW 12.8 % (11.5-15.5); WBC 5.9 k/uL (3.8-10.6); WBC (Perox) 6.34
[2016-07-27 09:01] LABS: Anion Gap 8 mmol/L; Blood Urea Nitrogen 10 mg/dL (7-17); Calcium 7.9 mg/dL (8.4-10.2); Carbon Dioxide 28 mmol/L (22-30); Chloride 101 mmol/L (98-107); Glucose 94 mg/dL (74-99); Non-African American GFR(MDRD) >60 (>60 ml/min/1.73 sqM); Sodium 137 mmol/L (137-145)
--- NOTE | 2016-07-27 09:59 | NM ---
EXAMINATION TYPE: NM hepatobiliary w EF DATE OF EXAM: 07/27/2016 9:48 AM COMPARISON: Ultrasound 07/25/2016 HISTORY: 70-year-old female acalculous cholecystitis, elevated LFTs. TECHNIQUE: After the intravenous administration of 5.5 mCi Tc 99m Mebrofenin hepatobiliary scintigrap hy is performed. Immediate images post injection. FINDINGS: There is satisfactory initial accumulation of tracer by the liver. The gallbladder is visualized wit hin 22 minutes. The small bowel activity is noted within 10 minutes. At one hour 8 ounces of oral e nsure plus is given to mimic CCK and gallbladder ejection fraction is calculated at 20 %, decreased. IMPRESSION: 1. Decreased gallbladder ejection fraction could reflect chronic cholecystitis or biliary dyskinesia. 2. Given the gallbladder wall thickening seen on ultrasound of 07/25/2016, if there are no other cause s of gallbladder wall thickening (such as fluid overload states or adjacent hepatitis), acalculus cho lecystitis could also be included in the differential as it is a known cause of false negative HIDA s cans.
[2016-07-27] MEDS: SODIUM CHLORIDE 0.9% 1,000 ML IV SCH (10:24)
[2016-07-27] MEDS: METOPROLOL TARTRATE 50 MG TAB PO SCH (10:24)
[2016-07-27 11:12] LABS: ALT 298 U/L (9-52); AST 271 U/L (14-36); Amylase 31 U/L (30-110)
[2016-07-27] MEDS ORDERED: Potassium Replacement Protocol 1 EACH MISC MISCELLANE PRN (11:59)
--- NOTE | 2016-07-27 12:41 | P.CONS ---
History of Present Illness - Reason for Consult Consult date: 07/27/16 Elevated liver enzymes Requesting physician: Beto Bray - History of Present Illness 70-year-old female admitted with flulike symptoms fever of unknown origin T-max 101.9. Patient traveled to [facility] mission trip mid-May for 2 weeks. 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 Prior to traveling to [facility] she had flulike symptoms and supposedly tested positive for the flu and was placed on antibiotics. Consultation requested for elevated liver enzymes. Admission total bilirubin 0.8. AST 120. ALT 137. Alkaline phosphatase 94. Lipase 74. Yesterday AST increased 349. ALT 274. Total bilirubin/alkaline phosphatase normal. Today transaminases relatively unchanged; AST 271. ALT 298. HIDA scan reported ejection fraction 20%. Denies abdominal pain. Still expressing low-grade temps 100.4. History of known liver disorders or autoimmune diseases. Hepatitis viral studies nonreactive and negative. Hepatitis panel negative. Blood parasite smear negative. Serologic immunology markers so far negative. CT abdomen and pelvis no ascites. Gallbladder appeared normal. Bile ducts not dilated. Spleen and pancreas normal. Liver showed no focal defect. Abdominal ultrasound liver 15.4 cm. Gallbladder wall 0.5 cm. CBD 0.4 cm. No stones. Review of Systems Constitutional: Denies fever, chills, sweats, weight gain, or loss. HEENT: Negative for migraines, blurred vision or loss, earaches, drainage, tinnitus, oral mucosal lesions, dysphagia, or odynophagia. CARDIAC: Hypertension. Negative for chest pain, arrhythmias, or palpitation. RESPIRATORY: Negative for shortness of breath, hemoptysis, cough, or sputum production. GI: See HPI for pertinent findings. : Negative for hematuria, urgency, frequency, polyuria, or dysuria. GYNc: Negative vaginal discharge. MUSCULOSKELETAL: Negative for muscle aches, swelling, arthritis, and arthralgias. NEUROLOGIC: Negative for stroke or TIA. ENDOCRINE: Negative for thyroid problems. SKIN: Negative for rash or itching. PSYCHIATRIC: Negative history for depression and anxiety All systems: negative (See HPI) Past Medical History Past Medical History: Hypertension Additional Past Medical History / Comment(s): fuchs dystrophy History of Any Multi-Drug Resistant Organisms: None Reported Past Surgical History: Tonsillectomy Additional Past Surgical History / Comment(s): bialteral cataracts with lense implants, bilateral bunionectomy Past Anesthesia/Blood Transfusion Reactions: No Reported Reaction Past Psychological History: No Psychological Hx Reported Smoking Status: Never smoker Past Alcohol Use History: None Reported Additional Past Alcohol Use History / Comment(s): Patient is a lifelong nonsmoker. She denies any medical marijuana, marijuana, street drug or alcohol use. She currently lives alone. There are no animals in the home. She has traveled to [place] on 2 occasions, [place] and . She denies any recent animal exposures. 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 Past Drug Use History: None Reported - Past Family History Mother Family Medical History: Cancer Additional Family Medical History / Comment(s): breast cancer, osteoporosis Medications and Allergies Home Medications Medication Instructions Recorded Confirmed Type Metoprolol Tartrate [Lopressor] 100 mg PO BID 07/22/16 07/22/16 History Allergies Allergy/AdvReac Type Severity Reaction Status Date / Time Penicillins Allergy Rash/Hives Verified 07/22/16 18:07 Physical Exam Vitals: Vital Signs Temp Pulse Resp BP Pulse Ox 07/27/16 07:00 97.8 F 80 18 148/66 92 L 07/26/16 23:00 100.4 F H 75 20 147/69 97 07/26/16 15:00 97.3 F L 77 22 144/73 93 L Intake and Output 07/26/16 07/27/16 07/27/16 22:59 06:59 14:59 Intake Total 200 0 Balance 200 0 Intake: Oral 200 0 Other: Voiding Method Toilet Toilet # Voids 1 Results CBC & Chem 7: 07/27/16 07:20 07/27/16 07:20 Labs: Abnormal Lab Results - Last 24 Hours (Table) 07/26/16 07/26/16 07/27/16 Range/Units 12:25 12:25 07:20 Plt Count 133 L 134 L (150-450) k/uL Sodium 136 L (137-145) mmol/L Potassium 3.4 L (3.5-5.1) mmol/L Glucose 105 H (74-99) mg/dL Calcium 8.2 L (8.4-10.2) mg/dL AST 349 H (14-36) U/L ALT 274 H (9-52) U/L Total Protein 5.9 L (6.3-8.2) g/dL Albumin 2.9 L (3.5-5.0) g/dL 07/27/16 07/27/16 Range/Units 07:20 07:20 Plt Count (150-450) k/uL Sodium (137-145) mmol/L Potassium 3.0 L* (3.5-5.1) mmol/L Glucose (74-99) mg/dL Calcium 7.9 L (8.4-10.2) mg/dL AST 271 H (14-36) U/L ALT 298 H (9-52) U/L Total Protein (6.3-8.2) g/dL Albumin (3.5-5.0) g/dL Microbiology - Last 24 Hours (Table) 07/22/16 18:22 Blood Culture - Preliminary Blood No Growth after 96 hours Comments: HIDA report reviewed by Dr. Miller CT scan - abdomen: report reviewed (Reviewed by Dr. Miller) US - abdomen: report reviewed Assessment and Plan (1) Transaminitis Narrative/Plan: Possible viral hepatitis possible medication related, autoimmune disease cannot be entirely excluded serologic workup still in progress Status: Acute (2) Fever of unknown origin Status: Acute (3) Hepatitis Status: Acute Plan: 1. Continue supportive measures. Infectious disease following closely. Additional serologic chemistries have been requested for workup of fever and elevation for autoimmune hepatitis. 2. Repeat liver enzymes in a.m. Will follow with you. Thank you for this kind referral and the opportunity to participate in the care of your patient. This consultation was discussed with Dr. Miller. The impression and plan of care have been directed as dictated.
[2016-07-27] MEDS: ENOXAPARIN 40 MG/0.4 ML SYRINGE SQ SCH (13:16)
[2016-07-27 14:20] LABS: % Iron Saturation 13.4 % (20-50)
--- NOTE | 2016-07-27 14:32 | P.PN ---
Subjective Principal diagnosis: MICKEY This is a 70-year-old female who gives history that she tested positive for influenza sometime in May and completed a course of antimicrobial. She then went to [facility] on a mission trip from May 18 through June 01. While she was there she was feeling sick again and quite congested. She will return in a couple weeks later she developed chills, terrible headache , body aches. She has occasional cough but much better from before. She denies any nausea, vomiting, diarrhea. She states she's had decreased appetite and probably some weight loss but unknown amount. She came into [facility] emergency center for evaluation. Chest x-ray showed no acute cardiopulmonary process. CAT scan of the brain showed no acute findings. D- dimer was elevated at 5.[address] of the chest showed no pulmonary embolism. There was mild to moderate bronchial cardenas thickening with hazy diffuse areas of atelectasis. Bronchitis, uncontrolled as more atypical pneumonia and differential. Ultrasound of the bilateral lower extremities were negative for DVT. Blood cultures status received. Sputum was uncollected. Urine is ordered. Influenza testing is status received. White count was 8, temperature 101.7. AST 128, ALT 137. Albumin 3.4. Acute hepatitis panel is negative. Parasite malaria testing is in process. Today the patient relates that she's had a fever for 2 weeks. She continues to have some mild pulmonary symptoms of shortness of breath. Has significant fatigue and malaise.. Is feeling somewhat better today. However still having some intermittent fever. Is having mild abdominal pain. Is having some malaise. Objective - Vital Signs Vital signs: Vital Signs Temp 97.8 F 07/27/16 07:00 Pulse 80 07/27/16 07:00 Resp 18 07/27/16 07:00 BP 148/66 07/27/16 07:00 Pulse Ox 92 L 07/27/16 07:00 Intake & Output 07/26/16 07/27/16 07/27/16 18:59 06:59 18:59 Intake Total 480 200 Balance 480 200 Weight 69.5 kg Intake: Oral 480 200 Other: Voiding Method Toilet Toilet # Voids 2 1 - Exam Gen: This is a 70-year-old female. She is sitting up in the edge of the bed and appears to be in no acute distress. No respiratory distress noted.and continues is to have a fever 101.4 HEENT: Head is atraumatic, normocephalic. Pupils equal, round. Sclerae is anicteric. Conjunctiva pink. Mucous members of the mouth are moist. No thrush noted. NECK: Supple. No JVD. No lymphadenopathy. No thyromegaly. LUNGS: Clear to auscultation. No wheezes or rhonchi. No intercostal retractions. HEART: Regular rate and rhythm. No murmur. ABDOMEN: Soft. Bowel sounds are present. No masses. Has just some minimal tenderness in the right upper quadrant and epigastrium. No CVA tenderness. EXTREMITIES: No pedal edema. No calf tenderness. Dorsalis pedis +2 bilaterally. NEUROLOGICAL: Patient is awake, alert and oriented x3. - Labs CBC & Chem 7: 07/27/16 07:20 07/27/16 07:20 Labs: Abnormal Lab Results - Last 24 Hours (Table) 07/27/16 07/27/16 07/27/16 Range/Units 07:20 07:20 07:20 Plt Count 134 L (150-450) k/uL Potassium 3.0 L* (3.5-5.1) mmol/L Calcium 7.9 L (8.4-10.2) mg/dL AST 271 H (14-36) U/L ALT 298 H (9-52) U/L Microbiology - Last 24 Hours (Table) 07/22/16 18:22 Blood Culture - Preliminary Blood No Growth after 96 hours Laboratory Results WBC 5.9 k/uL (3.8-10.6) 07/27/16 07:20 RBC 4.07 m/uL (3.80-5.40) 07/27/16 07:20 Hgb 12.2 gm/dL (11.4-16.0) 07/27/16 07:20 Hct 35.7 % (34.0-46.0) 07/27/16 07:20 MCV 87.8 fL (80.0-100.0) 07/27/16 07:20 MCH 30.1 pg (25.0-35.0) 07/27/16 07:20 MCHC 34.2 g/dL (31.0-37.0) 07/27/16 07:20 RDW 12.8 % (11.5-15.5) 07/27/16 07:20 Plt Count 134 k/uL (150-450) L 07/27/16 07:20 Neutrophils % 65 % 07/27/16 07:20 Lymphocytes % 28 % 07/27/16 07:20 Monocytes % 4 % 07/27/16 07:20 Eosinophils % 1 % 07/27/16 07:20 Basophils % 0 % 07/27/16 07:20 Neutrophils # 3.8 k/uL (1.3-7.7) 07/27/16 07:20 Lymphocytes # 1.6 k/uL (1.0-4.8) 07/27/16 07:20 Monocytes # 0.2 k/uL (0-1.0) 07/27/16 07:20 Eosinophils # 0.1 k/uL (0-0.7) 07/27/16 07:20 Basophils # 0.0 k/uL (0-0.2) 07/27/16 07:20 Manual Slide Review Performed 07/22/16 18:22 Poikilocytosis (manual Present 07/22/16 18:22 ESR 41 mm/hr (0-20) H 07/23/16 16:14 D-Dimer 5.48 mg/L FEU (<0.60) H 07/22/16 18:22 Sodium 137 mmol/L (137-145) 07/27/16 07:20 Potassium 3.0 mmol/L (3.5-5.1) L* 07/27/16 07:20 Chloride 101 mmol/L (98-107) 07/27/16 07:20 Carbon Dioxide 28 mmol/L (22-30) 07/27/16 07:20 Anion Gap 8 mmol/L 07/27/16 07:20 BUN 10 mg/dL (7-17) 07/27/16 07:20 Creatinine 0.64 mg/dL (0.52-1.04) 07/27/16 07:20 Est GFR (MDRD) Af Amer >60 (>60 ml/min/1.73 sqM) 07/27/16 07:20 Est GFR (MDRD) Non-Af >60 (>60 ml/min/1.73 sqM) 07/27/16 07:20 Glucose 94 mg/dL (74-99) 07/27/16 07:20 Plasma Lactic Acid Joce 1.4 mmol/L (0.7-2.0) 07/22/16 18:22 Calcium 7.9 mg/dL (8.4-10.2) L 07/27/16 07:20 Magnesium 2.5 mg/dL (1.6-2.3) H 07/22/16 18:22 Total Bilirubin 0.7 mg/dL (0.2-1.3) 07/26/16 12:25 AST 271 U/L (14-36) H 07/27/16 07:20 ALT 298 U/L (9-52) H 07/27/16 07:20 Alkaline Phosphatase 117 U/L (38-126) 07/26/16 12:25 Total Creatine Kinase 42 U/L (30-135) 07/22/16 18:22 CK-MB (CK-2) 0.3 ng/mL (0.0-2.4) 07/22/16 18:22 CK-MB (CK-2) Rel Index 0.7 07/22/16 18:22 Troponin I <0.012 ng/mL (0.000-0.034) 07/22/16 18:22 C-Reactive Protein 87.6 mg/L (<10.0) H 07/23/16 17:27 Total Protein 5.9 g/dL (6.3-8.2) L 07/26/16 12:25 Albumin 2.9 g/dL (3.5-5.0) L 07/26/16 12:25 Amylase 31 U/L (30-110) 07/27/16 07:20 Lipase 50 U/L (23-300) 07/27/16 07:20 Urine Color Yellow 07/23/16 20:40 Urine Appearance Clear (Clear) 07/23/16 20:40 Urine pH 5.5 (5.0-8.0) 07/23/16 20:40 Ur Specific [place] 1.010 (1.001-1.035) 07/23/16 20:40 Urine Protein 1+ (Negative) H 07/23/16 20:40 Urine Glucose (UA) Negative (Negative) 07/23/16 20:40 Urine Ketones Negative (Negative) 07/23/16 20:40 Urine Blood Small (Negative) H 07/23/16 20:40 Urine Nitrite Negative (Negative) 07/23/16 20:40 Urine Bilirubin Negative (Negative) 07/23/16 20:40 Urine Urobilinogen <2.0 mg/dL (<2.0) 07/23/16 20:40 Ur Leukocyte Esterase Negative (Negative) 07/23/16 20:40 Urine RBC 1 /hpf (0-5) 07/23/16 20:40 Urine WBC 4 /hpf (0-5) 07/23/16 20:40 Ur Squamous Epith Cells <1 /hpf (0-4) 07/23/16 20:40 Urine Bacteria Rare /hpf (None) H 07/23/16 20:40 Granular Casts 1 /lpf (0) 07/23/16 20:40 Urine Mucus Occasional /hpf (None) H 07/23/16 20:40 IgG 800 mg/dL (700 - 1600) 07/25/16 08:47 IgA 293 mg/dL (70 - 400) 07/25/16 08:47 IgM 85 mg/dL (40 - 230) 07/25/16 08:47 IgE 29.2 IU/mL (<114.0) 07/25/16 08:47 Rheumatoid Factor <9 IU/mL (<12) 07/27/16 07:20 c-ANCA <1:20 Titer (<1:20) 07/25/16 08:47 p-ANCA <1:20 Titer (<1:20) 07/25/16 08:47 CMV IgG Ab Non-Reactive (Non-Reactive) 07/23/16 17:27 CMV IgM Ab Non-Reactive (Non-Reactive) 07/23/16 17:27 EBV Capsid Ag IgG Ab <10.0 U/mL (<18.0) 07/23/16 17:27 EBV Capsid Ag IgM Ab <10.0 U/mL (<36.0) 07/23/16 17:27 EBV Early Antigen IgG <5.0 U/mL (<9.0) 07/23/16 17:27 EBV Nuclear Ag IgG Ab <3.0 U/mL (<18.0) 07/23/16 17:27 Hepatitis A IgM Ab NEGATIVE 07/26/16 12:25 Hep Bs Antigen Negative 07/26/16 12:25 Hep B Core IgM Ab NEGATIVE 07/26/16 12:25 Hep C IgG Ab Negative (Negative) 07/26/16 12:25 Bld Parasite Thin Smr None Observed 07/22/16 18:22 Bl Parasite Thick Smr None Observed 07/22/16 18:22 Microbiology 07/22/16 18:22 Blood Blood Culture - Preliminary No Growth after 96 hours Assessment and Plan (1) Fever of unknown origin Narrative/Plan: Pleasant 70-year-old woman who has an extensive travel history, 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 She is now relating that she has not been feeling well since March. Upon return from her trip her symptoms however have worsened. The last 2 weeks she's been having fevers up to 101 at times. Associated with chills fatigue and malaise. She relates that she's had almost continuous pneumonia since March. Was only well for short time while she was in [facility]. Patient also relates that she has some significant chronic sinus condition. At this time concerns to underlying infectious process related to her travel is possible, but she was symptomatically for her trip. Stool for ova and parasite is requested which is a full workup doing to her international travel. Evaluation for underlying autoimmune disease specifically vasculitis is in process. She has an elevated ESR and CRP. pANCA and evaluation of her liver have been requested at this time. The blood smears for malaria are negative. Immunoglobulin levels are also requested. Cultures are negative so far and would hold antibiotic therapy for now. Autoimmune workup is in process. And so far has been negative. Blood work from this morning does show evidence of the increasing AST ALT. Constantly ongoing concern for the possibility that the acalculous cholecystitis could be the etiology for FUO. HIDA scan is requested. Renny level and antimitochondrial antibodies in process HIDA scan mildly abnormal. Completion wound workup is in process. MARILYN rheumatoid factor have been requested as has protein electrophoresis. Coxiella burnetii also requested. Patient has improved overall. If this time if her undulating liver function tests show improvement but agree for discharge to home. Follow-up in the office for the testing. For the next plan depending on the findings. Would plan on doxycycline Status: Acute
[2016-07-27 14:58] VITALS: BP 119/65; PULSE 71; RESP 20; TEMP 98.1
[2016-07-27] MEDS: POTASSIUM CHLORIDE 10 MEQ in WATER FOR INJECTION 1 100ML.BAG IVPB SCH ×2 (14:58→17:27)
--- NOTE | 2016-07-27 15:42 | ECHOF ---
Referral Reason:Endocarditis MEASUREMENTS -------- HEIGHT: 162.6 cm WEIGHT: 69.4 kg BP: 136/66 IVSd: 1.1 cm (0.6 - 1.1) LVIDd: 4.2 cm (3.9 - 5.3) LVPWd: 0.8 cm (0.6 - 1.1) IVSs: 1.5 cm LVIDs: 2.0 cm LVPWs: 1.7 cm Ao Diam: 2.8 cm (2.0 - 3.7) AV Cusp: 1.5 cm (1.5 - 2.6) LA Diam: 3.5 cm (2.7 - 3.8) MV EXCURSION: 20.130 mm (> 18.000) MV EF SLOPE: 115 mm/s (70 - 150) EPSS: 0.7 cm MV E Andres: 0.87 m/s MV DecT: 221 ms MV A Andres: 0.84 m/s MV E/A Ratio: 1.04 AR PHT: 440 ms RAP: 5.00 mmHg RVSP: 12.04 mmHg FINDINGS -------- Sinus rhythm. This was a technically good study. Left ventricular wall thickness is normal. Overall left ventricular systolic function is normal with, an EF between 55 - 60 %. The right ventricle is normal in size and function. The left atrium is normal in size. The right atrium is normal in size. Aortic valve is trileaflet and is mildly thickened. The mitral valve leaflets are mildly thickened. Mild mitral regurgitation is present. Mild tricuspid regurgitation present. The right ventricular systolic pressure, as measured by Doppler, is 12.04mmHg. Pulmonic valve appears structurally normal. The aortic root size is normal. The pericardium is normal. CONCLUSIONS -------- 1. Sinus rhythm. 2. Mild mitral regurgitation is present. 3. Mild tricuspid regurgitation present. 4. The right ventricular systolic pressure, as measured by Doppler, is 12.04mmHg. 5. Pulmonic valve appears structurally normal. 6. The aortic root size is normal. 7. The pericardium is normal. 8. This was a technically good study. 9. Left ventricular wall thickness is normal. 10. Overall left ventricular systolic function is normal with, an EF between 55 - 60 %. 11. The right ventricle is normal in size and function. 12. The left atrium is normal in size. 13. The right atrium is normal in size. 14. Aortic valve is trileaflet and is mildly thickened. 15. The mitral valve leaflets are mildly thickened. CHAIR MAKER: Shante Tiwari RDCS
[2016-07-27 16:46] LABS: ALT 273 U/L (9-52); AST 248 U/L (14-36); Alkaline Phosphatase 150 U/L (38-126); Anion Gap 8 mmol/L; Blood Urea Nitrogen 10 mg/dL (7-17); Calcium 7.9 mg/dL (8.4-10.2); Carbon Dioxide 27 mmol/L (22-30); Chloride 103 mmol/L (98-107); Glucose 133 mg/dL (74-99); Non-African American GFR(MDRD) >60 (>60 ml/min/1.73 sqM); Potassium 3.3 mmol/L (3.5-5.1); Sodium 138 mmol/L (137-145); Total Bilirubin 0.6 mg/dL (0.2-1.3); Total Protein 5.5 g/dL (6.3-8.2)
--- NOTE | 2016-07-27 19:21 | PN ---
DATE OF SERVICE: 07/26/2016 ATTENDING NOTE: This patient was seen and examined by me on 07/26/16. I reviewed the note of my nurse practitioner, Ms. Mcgovern, discussed it with her and agree with the same. This is a patient who presented with FUO. Fever continues to spike. Patient's LFTs actually had gone up. Patient is otherwise tolerating some diet. On examination, T-max was 101.9 ( ). LUNGS: Slightly decreased breath sounds. CARDIOVASCULAR: First and second sounds normal. No edema. ABDOMEN: Soft, nontender. PSYCHIATRY: Awake. INVESTIGATIONS: Noted. ASSESSMENT: 1. Fever of unknown origin. Cause unclear. Associated with hepatitis-like picture. 2. Essential hypertension. PLAN: At this point GI was consulted. Repeat LFTs. Will talk to Dr. Goodman. Given that patient is still having fevers, need to look at other causes. Patient empirically has been off antibiotics.
--- NOTE | 2016-07-28 07:12 | DS ---
DATE OF ADMISSION: 07/22/2016 DATE OF DISCHARGE: 07/27/2016 FINAL DIAGNOSES: 1. Fever of unknown origin. 2. Essential hypertension. 3. Acute hepatitis cause unknown. HOSPITAL COURSE: This is a patient having fever on and off for over 2 weeks, had been to [facility] and had some viral-like symptoms even before she went. Had extensive work-up done for fever. No obvious causes found until now. Patient's CT scan of the chest did show some nonspecific findings. Patient's initial AST was 128, ALT 137 and AST did peak up in 349 and then started to come down. Patient's C-reactive protein is 87.6. UA showed some proteinuria. Patient's immunoglobulin and CMP ANCA were unremarkable. Patient's CMV IgG, IgM antibody was unremarkable. Sarah Coffman virus IgM and IgG was negative. The patient's ( ) smear of the blood was negative for parasites as well as malaria. Hepatitis screen was negative. Amylase and lipase were negative. Albumin is running low. Patient's AST and ALT at the time of discharge were 249 and 273. Total bilirubin 0.6. Additionally patient had a CT scan of the brain that was unremarkable. Chest CTA negative for PE. Venous Doppler negative for DVT. CT abdomen and pelvis nonspecific, unremarkable. Abdominal ultrasound some questionable acalculous cholecystitis but not felt to be clinically. 2-D echocardiogram shows preserved LV functions. No other abnormality reported. Patient's HIDA scan did show some decreased ejection fraction. Blood cultures remain negative. The patient initially was put on antibiotics, but then discontinued as it was felt was not being specific about the same. The patient's blood cultures were done off antibiotics. LFTs had started to level off. I spoke at length with Dr. Goodman today. He would like the patient to go home and I discussed with him and we are okay with discharging the patient on doxycycline. Patient was told to come back if things get worse. She will see Dr. Goodman in the office this coming Saturday and also have LFTs done as an outpatient. CONSULTATION: 1. Dr. Goodman, Infectious Disease 2. Dr. Shirley from Pulmonary. 3. Dr. Maximus Miller from GI. DISCHARGE MEDICATIONS: 1. Lopressor 100 mg b.i.d. 2. Doxycycline 100 mg p.o. q.12, seven day course. Follow with Dr. Goodman on 07/31/16, follow with Dr. Maximus Miller in one week, follow with Dr. Dennys Ferraro in one week. LABS: CMP, BMP next Saturday. On examination, lungs are clear. CARDIOVASCULAR: First and second sounds normal. The patient is awake, alert, oriented x3 tolerating a diet. Up and about. The patient's last fever was 100.4 last night. Discharge planning more than 35 minutes.
[2016-07-31 03:39] LABS: Cardiolipin Ab IgG 137.5 GPL (<15); Cardiolipin Ab IgM 54.1 MPL (<12.5)
[2016-08-01 09:54] LABS: Cryptosporidium parvum Not detected (Not detected); Isospora belli Not detected (Not detected); Microsporidium Not detected (Not detected); Routine Ova and Parasites Not detected
[2016-08-02 07:57] LABS: Mis test requested (Blood) Q Fever GMA Ab
== END 2016-07-27 19:09 | disposition home or self-care (01) | DRG 864 ==
LOC: EC 17:46 → 4MS4W 20:47
PROVIDERS: ADMIT Hospitalist; ATTEND Hospitalist
DX: R50.9 Fever, unspecified (principal); I10 Essential (primary) hypertension; B17.9 Acute viral hepatitis, unspecified; J98.11 Atelectasis; Z79.899 Other long term (current) drug therapy; Z88.0 Allergy status to penicillin
CPT/HCPCS: 36415; 70450; 71020; 71275; 74177; 76700; 78226; 80048; 80053; 80074; 81001; 82103; 82150; 82164; 82390; 82550; 82553; 82728; 82784; 82785; 83516; 83540; 83550; 83605; 83690; 83735; 84165; 84450; 84460; 84484; 85025; 85379; 85652; 86038; 86140; 86147; 86235; 86255; 86431; 86638; 86644; 86645; 86663; 86664; 86665; 87040; 87177; 87207; 87209; 87502; 87798; 93005; 93306; 93970; 96360; 96361; 99285

== ENCOUNTER 2016-08-08 10:47 | Inpatient (IN) | payer MEDICARE ==
[2016-08-08] MEDS ORDERED: SODIUM CHLORIDE 0.9% 1,000 ML IV STA ×2 (11:34)
--- NOTE | 2016-08-08 11:49 | ED ---
Weakness HPI - General Chief complaint: Weakness Stated complaint: Fatigue Time Seen by Provider: 08/08/16 10:50 Source: patient, family, RN/MD, RN notes reviewed Mode of arrival: ambulatory Limitations: no limitations - History of Present Illness Initial comments: This is a 70-year-old female who was just recently admitted in the hospital with a fever of unknown origin who is back today for evaluation and treatment and admission for acute fever. Patient complained of generalized weakness fatigue exertional dyspnea is generally not feeling well failure to thrive. She was seen by her infectious disease physician today who has a diagnosis of acute fever the patient was positive for coxiella burnetii.. Additionally the patient has been outpatient doxycycline has not been tolerating it. MD Complaint: generalized weakness - Related Data Home Medications Medication Instructions Recorded Confirmed Metoprolol Tartrate [Lopressor] 100 mg PO BID 07/22/16 08/08/16 Difluprednate [Durezol] 1 drop BOTH EYES WE 08/08/16 08/08/16 Ibuprofen [Motrin] 200 mg PO Q6HR PRN 08/08/16 08/08/16 Sodium Chloride 5% Ophth Oint 1 applic BOTH EYES HS 08/08/16 08/08/16 [Luther 128] Allergies Allergy/AdvReac Type Severity Reaction Status Date / Time Penicillins Allergy Rash/Hives Verified 08/08/16 11:45 Review of Systems ROS Statement: Those systems with pertinent positive or pertinent negative responses have been documented in the HPI. ROS Other: All systems not noted in ROS Statement are negative. Past Medical History Past Medical History: Hypertension Additional Past Medical History / Comment(s): fuchs dystrophy History of Any Multi-Drug Resistant Organisms: None Reported Past Surgical History: Tonsillectomy Additional Past Surgical History / Comment(s): bialteral cataracts with lense implants, bilateral bunionectomy Past Anesthesia/Blood Transfusion Reactions: No Reported Reaction Past Psychological History: No Psychological Hx Reported Smoking Status: Never smoker Past Alcohol Use History: None Reported Additional Past Alcohol Use History / Comment(s): Patient is a lifelong nonsmoker. She denies any medical marijuana, marijuana, street drug or alcohol use. She currently lives alone. There are no animals in the home. She has traveled to [place] on 2 occasions, [place] and [place]. She denies any recent animal exposures. 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 Past Drug Use History: None Reported - Past Family History Mother Family Medical History: Cancer Additional Family Medical History / Comment(s): breast cancer, osteoporosis General Exam - General Exam Comments Initial Comments: This is a well-developed well-nourished awake but lethargic appearing female Limitations: no limitations General appearance: alert, lethargic Head exam: Present: atraumatic, normocephalic, normal inspection Eye exam: Present: normal appearance, PERRL, EOMI. Absent: scleral icterus, conjunctival injection, periorbital swelling ENT exam: Present: mucous membranes dry Neck exam: Present: normal inspection. Absent: tenderness, meningismus, lymphadenopathy Respiratory exam: Present: normal lung sounds bilaterally. Absent: respiratory distress, wheezes, rales, rhonchi, stridor Cardiovascular Exam: Present: regular rate, normal rhythm, normal heart sounds. Absent: systolic murmur, diastolic murmur, rubs, gallop, clicks GI/Abdominal exam: Present: soft, normal bowel sounds. Absent: distended, tenderness, guarding, rebound, rigid Extremities exam: Present: normal inspection, full ROM, normal capillary refill. Absent: tenderness, pedal edema, joint swelling, calf tenderness Back exam: Present: normal inspection Neurological exam: Present: alert, oriented X3, CN II-XII intact Psychiatric exam: Present: normal affect, normal mood Skin exam: Present: warm, dry, intact, normal color. Absent: rash Course Vital Signs 08/08/16 08/08/16 11:11 12:18 Temperature 99.2 F Pulse Rate 60 56 L Respiratory 17 16 Rate Blood Pressure 116/62 112/57 O2 Sat by Pulse 97 95 Oximetry EKG Findings - EKG Results: EKG: interpreted by MARIETTA, sinus rhythm Medical Decision Making - Medical Decision Making I did discuss the case with Dr. Goodman and with the admitting hospitalist Dr. Bray patient will be admitted and placed on IV antibiotics. - Lab Data Result diagrams: 08/08/16 11:14 08/08/16 11:14 Lab Results 08/08/16 08/08/16 08/08/16 Range/Units 11:14 11:14 11:14 WBC 11.2 H (3.8-10.6) k/uL RBC 4.07 (3.80-5.40) m/uL Hgb 12.2 (11.4-16.0) gm/dL Hct 35.4 (34.0-46.0) % MCV 87.0 (80.0-100.0) fL MCH 30.0 (25.0-35.0) pg MCHC 34.5 (31.0-37.0) g/dL RDW 13.4 (11.5-15.5) % Plt Count 391 D (150-450) k/uL Neutrophils % 61 % Lymphocytes % 28 % Monocytes % 6 % Eosinophils % 1 % Basophils % 0 % Neutrophils # 6.8 (1.3-7.7) k/uL Lymphocytes # 3.1 (1.0-4.8) k/uL Monocytes # 0.7 (0-1.0) k/uL Eosinophils # 0.2 (0-0.7) k/uL Basophils # 0.0 (0-0.2) k/uL PT (9.0-12.0) sec INR (<1.1) APTT (22.0-30.0) sec Sodium 136 L (137-145) mmol/L Potassium 4.3 (3.5-5.1) mmol/L Chloride 101 (98-107) mmol/L Carbon Dioxide 22 (22-30) mmol/L Anion Gap 13 mmol/L BUN 15 (7-17) mg/dL Creatinine 0.79 (0.52-1.04) mg/dL Est GFR (MDRD) Af Amer >60 (>60 ml/min/1.73 sqM) Est GFR (MDRD) Non-Af >60 (>60 ml/min/1.73 sqM) Glucose 116 H (74-99) mg/dL Calcium 9.2 (8.4-10.2) mg/dL Magnesium 2.3 (1.6-2.3) mg/dL Total Bilirubin 1.0 (0.2-1.3) mg/dL AST 31 (14-36) U/L ALT 38 (9-52) U/L Alkaline Phosphatase 106 (38-126) U/L Total Creatine Kinase <20 L (30-135) U/L Total Protein 7.0 (6.3-8.2) g/dL Albumin 3.6 (3.5-5.0) g/dL 08/08/16 Range/Units 11:14 WBC (3.8-10.6) k/uL RBC (3.80-5.40) m/uL Hgb (11.4-16.0) gm/dL Hct (34.0-46.0) % MCV (80.0-100.0) fL MCH (25.0-35.0) pg MCHC (31.0-37.0) g/dL RDW (11.5-15.5) % Plt Count (150-450) k/uL Neutrophils % % Lymphocytes % % Monocytes % % Eosinophils % % Basophils % % Neutrophils # (1.3-7.7) k/uL Lymphocytes # (1.0-4.8) k/uL Monocytes # (0-1.0) k/uL Eosinophils # (0-0.7) k/uL Basophils # (0-0.2) k/uL PT 13.2 H (9.0-12.0) sec INR 1.3 (<1.1) APTT 30.6 H (22.0-30.0) sec Sodium (137-145) mmol/L Potassium (3.5-5.1) mmol/L Chloride (98-107) mmol/L Carbon Dioxide (22-30) mmol/L Anion Gap mmol/L BUN (7-17) mg/dL Creatinine (0.52-1.04) mg/dL Est GFR (MDRD) Af Amer (>60 ml/min/1.73 sqM) Est GFR (MDRD) Non-Af (>60 ml/min/1.73 sqM) Glucose (74-99) mg/dL Calcium (8.4-10.2) mg/dL Magnesium (1.6-2.3) mg/dL Total Bilirubin (0.2-1.3) mg/dL AST (14-36) U/L ALT (9-52) U/L Alkaline Phosphatase (38-126) U/L Total Creatine Kinase (30-135) U/L Total Protein (6.3-8.2) g/dL Albumin (3.5-5.0) g/dL - Radiology Data Radiology results: report reviewed (I did review the imaging and reports no acute findings.), image reviewed Disposition Clinical Impression: Q fever, Failure of outpatient treatment, Dehydration, Fatigue Disposition: ADMITTED IP TO THIS [facility] Condition: Stable Referrals: Dennys Ferraro MD [Primary Care Provider] - 1-2 days Decision Time: 11:45
[2016-08-08 12:15] LABS: Basophils % (A) 0 %; Eosinophils % (A) 1 %
[2016-08-08 12:22] LABS: ALT 38 U/L (9-52); AST 31 U/L (14-36); Alkaline Phosphatase 106 U/L (38-126); Anion Gap 13 mmol/L; Blood Urea Nitrogen 15 mg/dL (7-17); Calcium 9.2 mg/dL (8.4-10.2); Carbon Dioxide 22 mmol/L (22-30); Chloride 101 mmol/L (98-107); Glucose 116 mg/dL (74-99); Magnesium 2.3 mg/dL (1.6-2.3); Non-African American GFR(MDRD) >60 (>60 ml/min/1.73 sqM); Potassium 4.3 mmol/L (3.5-5.1); Sodium 136 mmol/L (137-145)
--- NOTE | 2016-08-08 12:25 | XR ---
EXAMINATION TYPE: XR chest 2V DATE OF EXAM: 08/08/2016 COMPARISON: 07/25/2016 HISTORY: Shortness of breath TECHNIQUE: Frontal and lateral views of the chest are obtained. FINDINGS: Scattered senescent parenchymal changes noted. Hyperinflation compatible with COPD. No evidence for infiltrate. No evidence for atelectasis. Heart size is stable. Mediastinal structures are stable and grossly unremarkable. No evidence for hilar prominence. Degenerative changes dorsal spine. IMPRESSION: 1. No evidence for acute pulmonary disease.
[2016-08-08 12:29] LABS: CHCM 34.6; Eosinophils # (A) 0.2 k/uL (0-0.7); HCT 35.4 % (34.0-46.0); HDW 3.03; HGB 12.2 gm/dL (11.4-16.0); INR 1.3 (<1.1); Luc # (Auto) 0.31; Luc % (Auto) 3; Lymphocytes # (A) 3.1 k/uL (1.0-4.8); Lymphocytes % (A) 28 %; MCHC 34.5 g/dL (31.0-37.0); Mean Platelet Volume 7.2; Monocytes # (A) 0.7 k/uL (0-1.0); Monocytes % (A) 6 %; Neutrophils # (A) 6.8 k/uL (1.3-7.7); Neutrophils % (A) 61 %; Partial Thromboplastin Time 30.6 sec (22.0-30.0); Prothrombin Time 13.2 sec (9.0-12.0); RBC 4.07 m/uL (3.80-5.40); RDW 13.4 % (11.5-15.5); WBC 11.2 k/uL (3.8-10.6); WBC (Perox) 11.28
[2016-08-08 12:45] LABS: Creatine Kinase <20 U/L (30-135)
[2016-08-08] MEDS ORDERED: KETOROLAC 30 MG/ML 1 ML VIAL IVP STA (12:49)
[2016-08-08] MEDS ORDERED: NALOXONE 0.4 MG/ML 1 ML VIAL IV PRN (12:53)
[2016-08-08] MEDS ORDERED: ACETAMINOPHEN TAB 325 MG TAB PO PRN (12:53)
[2016-08-08] MEDS ORDERED: IBUPROFEN 200 MG TAB PO PRN (12:56)
[2016-08-08 12:58] LABS: Creatine Kinase MB <0.2 ng/mL (0.0-2.4); Troponin I <0.012 ng/mL (0.000-0.034)
[2016-08-08] MEDS ORDERED: NON-FORMULARY DRUG (Difluprednate [Durezol] 1 DROP) BOTH EYES SCH (13:00)
[2016-08-08 13:38] LABS: Appearance,Urine Clear (Clear); Bilirubin,Urine Negative (Negative); Glucose,Urine (UA) Negative (Negative); Ketones,Urine Negative (Negative); Leukocyte Esterase,Urine Negative (Negative); Nitrite,Urine Negative (Negative); Protein,Urine Trace (Negative); Specific Gravity,Urine 1.006 (1.001-1.035); UA Billing (MACRO vs. MICRO) CHEM; Urobilinogen,Urine <2.0 mg/dL (<2.0)
[2016-08-08 15:30] VITALS: BMI 26.5
--- NOTE | 2016-08-08 18:26 | P.CONS ---
History of Present Illness - Reason for Consult Consult date: 08/08/16 - Chief Complaint Weakness and fever - History of Present Illness 70-year-old female known to me from her recent hospitalization which was presented feeling very poorly. She had a high-grade fever chills headache and body aches and minimal cough. 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 Early in the year she had influenza. During the most recent stay influenza testing was negative. The most workup was negative. However did have a fever 101.7 eventually did improve. She was treated with a course of doxycycline with concerns of her travel potential bacterial pathogens. Extensive workup was performed. Presented to the office there is evidence of the positive PCR for Coxiella Alex I, Q fever pathogen, it with her significant illness was brought back in the hospital for antibiotic therapy. She is feeling quite poorly at this point in time. In need of hydration and antibiotics and supportive care. She is willing that she is able to eat without nausea or emesis but has poor appetite. Her myalgias have improved a bit. But still very weak. Energy level is extremely poor. Her 2 nieces have had to perform all daily activities such as cooking and shopping. Review of Systems Constitutional: Reports chills, Denies fever Eyes: denies blurred vision, denies pain Ears, nose, mouth and throat: Reports headache, Denies sore throat Cardiovascular: Denies chest pain, Denies shortness of breath Respiratory: Denies cough Gastrointestinal: Denies abdominal pain, Denies diarrhea, Denies nausea, Denies vomiting Genitourinary: Denies dysuria, Denies hematuria Musculoskeletal: Reports myalgias Integumentary: Denies pruritus, Denies rash Neurological: Denies numbness, Denies weakness Psychiatric: Denies anxiety, Denies depression Endocrine: Denies fatigue, Denies weight change Past Medical History Past Medical History: Eye Disorder, Hypertension, Pneumonia Additional Past Medical History / Comment(s): Pt admitted 07/22/16 with acute hepatitis and C. Burnetti antigens (Qfever). Other hx: fuchs dystrophy History of Any Multi-Drug Resistant Organisms: None Reported Past Surgical History: Tonsillectomy Additional Past Surgical History / Comment(s): bialteral cataracts with lens implants, bilateral bunionectomy, colonoscopy. Past Anesthesia/Blood Transfusion Reactions: Family History of Problems w/ Anesthesia Past Psychological History: No Psychological Hx Reported Additional Psychological History / Comment(s): Pt lives alone. She has recently , May 2016 traveled to [facility]. She is independent. 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 Smoking Status: Never smoker Past Alcohol Use History: None Reported Additional Past Alcohol Use History / Comment(s): Patient is a lifelong nonsmoker. She denies any medical marijuana, marijuana, street drug or alcohol use. She currently lives alone. There are no animals in the home. She has traveled to [place] on 2 occasions, [place] and [facility]. She denies any recent animal exposures. 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 Past Drug Use History: None Reported - Past Family History Mother Family Medical History: Cancer, Dementia Additional Family Medical History / Comment(s): breast cancer, osteoporosis. Mother at the age of 92yrs. Father Family Medical History: Coronary Artery Disease (CAD), Hypertension Additional Family Medical History / Comment(s): Father at the age of 59yrs. Pt states her father was not very compliant with his medical care. Medications and Allergies Home Medications and Allergies Comment(s): Current Medications Acetaminophen (Tylenol Tab) 650 mg PO Q6HR PRN PRN Reason: Mild Pain or Fever > 100.5 Sodium Chloride (Saline 0.9%) 1,000 mls @ 20 mls/hr IV .Q24H STA Stop: 08/09/16 11:33 Last Admin: 08/08/16 15:51 Dose: 20 mls/hr Sodium Chloride (Saline 0.9%) 1,000 mls @ 75 mls/hr IV .[id number] STA Stop: 08/09/16 00:53 Last Admin: 08/08/16 13:05 Dose: 75 mls/hr Trimethoprim/Sulfamethoxazole (340 mg/ Dextrose/Water) 521.25 mls @ 250 mls/hr IVPB Q12HR JOSE C Ibuprofen (Advil) 200 mg PO Q6HR PRN PRN Reason: Mild Pain Metoprolol Tartrate (Lopressor) 100 mg PO BID JOSE C Naloxone HCl (Narcan) 0.2 mg IV Q2M PRN PRN Reason: Opioid Reversal Non-Formulary Medication (Difluprednate [Durezol]) 1 drop BOTH EYES WE JOSE C Sodium Chloride (Luther 128) 1 applic BOTH EYES [facility] Home Medications Medication Instructions Recorded Confirmed Type Metoprolol Tartrate [Lopressor] 100 mg PO BID 07/22/16 08/08/16 History Difluprednate [Durezol] 1 drop BOTH EYES WE 08/08/16 08/08/16 History Ibuprofen [Motrin] 200 mg PO Q6HR PRN 08/08/16 08/08/16 History Sodium Chloride 5% Ophth Oint 1 applic BOTH EYES HS 08/08/16 08/08/16 History [Luther 128] Allergies Allergy/AdvReac Type Severity Reaction Status Date / Time Penicillins Allergy Rash/Hives Verified 08/08/16 11:45 Physical Exam Vitals: Vital Signs Temp Pulse Pulse Resp BP BP Pulse Ox 08/08/16 15:20 98.5 F 55 L 18 103/54 94 L 08/08/16 14:21 98.5 F 61 17 108/57 95 08/08/16 12:18 56 L 16 112/57 95 08/08/16 11:11 99.2 F 60 17 116/62 97 Intake and Output 08/08/16 08/08/16 08/08/16 06:59 14:59 22:59 Other: Weight 68.039 kg 68.039 kg Patient Weight 08/09/16 06:59 Weight 68.039 kg Gen: This is a 70-year-old female. Appears acutely ill. She is lethargic. But has clear mentation. HEENT: Head is atraumatic, normocephalic. Pupils equal, round. Sclerae is anicteric. Conjunctiva pink. Mucous members of the mouth are moist. No thrush noted. NECK: Supple. No JVD. No lymphadenopathy. No thyromegaly. No neck rigidity is noted LUNGS: Clear to auscultation. No wheezes or rhonchi. No intercostal retractions. HEART: Regular rate and rhythm. No murmur. ABDOMEN: Soft. Bowel sounds are present. No masses. No tenderness. No CVA tenderness. EXTREMITIES: No pedal edema. No calf tenderness. Dorsalis pedis +2 bilaterally. NEUROLOGICAL: Patient is awake, alert and oriented x3. Cranial nerves 2 through 12 are grossly intact. Results CBC & Chem 7: 08/08/16 11:14 08/08/16 11:14 Labs: Abnormal Lab Results - Last 24 Hours (Table) 08/08/16 08/08/16 08/08/16 Range/Units 11:14 11:14 11:14 WBC 11.2 H (3.8-10.6) k/uL PT (9.0-12.0) sec APTT (22.0-30.0) sec Sodium 136 L (137-145) mmol/L Glucose 116 H (74-99) mg/dL Total Creatine Kinase <20 L (30-135) U/L Urine Protein (Negative) 08/08/16 08/08/16 Range/Units 11:14 13:19 WBC (3.8-10.6) k/uL PT 13.2 H (9.0-12.0) sec APTT 30.6 H (22.0-30.0) sec Sodium (137-145) mmol/L Glucose (74-99) mg/dL Total Creatine Kinase (30-135) U/L Urine Protein Trace H (Negative) Laboratory Results WBC 11.2 k/uL (3.8-10.6) H 08/08/16 11:14 RBC 4.07 m/uL (3.80-5.40) 08/08/16 11:14 Hgb 12.2 gm/dL (11.4-16.0) 08/08/16 11:14 Hct 35.4 % (34.0-46.0) 08/08/16 11:14 MCV 87.0 fL (80.0-100.0) 08/08/16 11:14 MCH 30.0 pg (25.0-35.0) 08/08/16 11:14 MCHC 34.5 g/dL (31.0-37.0) 08/08/16 11:14 RDW 13.4 % (11.5-15.5) 08/08/16 11:14 Plt Count 391 k/uL (150-450) D 08/08/16 11:14 Neutrophils % 61 % 08/08/16 11:14 Lymphocytes % 28 % 08/08/16 11:14 Monocytes % 6 % 08/08/16 11:14 Eosinophils % 1 % 08/08/16 11:14 Basophils % 0 % 08/08/16 11:14 Neutrophils # 6.8 k/uL (1.3-7.7) 08/08/16 11:14 Lymphocytes # 3.1 k/uL (1.0-4.8) 08/08/16 11:14 Monocytes # 0.7 k/uL (0-1.0) 08/08/16 11:14 Eosinophils # 0.2 k/uL (0-0.7) 08/08/16 11:14 Basophils # 0.0 k/uL (0-0.2) 08/08/16 11:14 PT 13.2 sec (9.0-12.0) H 08/08/16 11:14 INR 1.3 (<1.1) 08/08/16 11:14 APTT 30.6 sec (22.0-30.0) H 08/08/16 11:14 Sodium 136 mmol/L (137-145) L 08/08/16 11:14 Potassium 4.3 mmol/L (3.5-5.1) 08/08/16 11:14 Chloride 101 mmol/L (98-107) 08/08/16 11:14 Carbon Dioxide 22 mmol/L (22-30) 08/08/16 11:14 Anion Gap 13 mmol/L 08/08/16 11:14 BUN 15 mg/dL (7-17) 08/08/16 11:14 Creatinine 0.79 mg/dL (0.52-1.04) 08/08/16 11:14 Est GFR (MDRD) Af Amer >60 (>60 ml/min/1.73 sqM) 08/08/16 11:14 Est GFR (MDRD) Non-Af >60 (>60 ml/min/1.73 sqM) 08/08/16 11:14 Glucose 116 mg/dL (74-99) H 08/08/16 11:14 Calcium 9.2 mg/dL (8.4-10.2) 08/08/16 11:14 Magnesium 2.3 mg/dL (1.6-2.3) 08/08/16 11:14 Total Bilirubin 1.0 mg/dL (0.2-1.3) 08/08/16 11:14 AST 31 U/L (14-36) 08/08/16 11:14 ALT 38 U/L (9-52) 08/08/16 11:14 Alkaline Phosphatase 106 U/L (38-126) 08/08/16 11:14 Total Creatine Kinase <20 U/L (30-135) L 08/08/16 11:14 CK-MB (CK-2) <0.2 ng/mL (0.0-2.4) 08/08/16 11:14 CK-MB (CK-2) Rel Index 08/08/16 11:14 Troponin I <0.012 ng/mL (0.000-0.034) 08/08/16 11:14 Total Protein 7.0 g/dL (6.3-8.2) 08/08/16 11:14 Albumin 3.6 g/dL (3.5-5.0) 08/08/16 11:14 Urine Color Yellow 08/08/16 13:19 Urine Appearance Clear (Clear) 08/08/16 13:19 Urine pH 8.0 (5.0-8.0) 08/08/16 13:19 Ur Specific [place] 1.006 (1.001-1.035) 08/08/16 13:19 Urine Protein Trace (Negative) H 08/08/16 13:19 Urine Glucose (UA) Negative (Negative) 08/08/16 13:19 Urine Ketones Negative (Negative) 08/08/16 13:19 Urine Blood Negative (Negative) 08/08/16 13:19 Urine Nitrite Negative (Negative) 08/08/16 13:19 Urine Bilirubin Negative (Negative) 08/08/16 13:19 Urine Urobilinogen <2.0 mg/dL (<2.0) 08/08/16 13:19 Ur Leukocyte Esterase Negative (Negative) 08/08/16 13:19 PCR for Coxiella Alex has come back as positive. Assessment and Plan (1) Q fever Narrative/Plan: Very pleasant 70-year-old female presents to hospital with ongoing illness. Recently hospitalized was having a fever in origin. She overdoes several history of significant travel before becoming ill. Her echo was performed that included negative malaria and parasite exams. Cultures were negative. Insulin the testing was negative. Because of her travel in her symptoms including a mild hepatitis concerns were for other pathogens including Coxiella infection. She was treated with doxycycline at the time of her discharge which she was insistent on at that time. There is no evidence of the PCR for the Coxiella antibiotic therapy will be initiated with intravenous Bactrim given that appears to be a failure of the doxycycline therapy. Fluid hydration is being performed High-protein intake is encouraged We'll monitor closely for improvement therapy. Chest x-ray is negative no evidence of pneumonia Echocardiogram was performed on her last admission showed evidence ofsignificant endocarditis. If we have any worsening of her status a WALLY would be requested to ensure that there is not evidence of endocarditis at this time. Status: Acute (2) Failure of outpatient treatment Status: Acute (3) Fatigue Status: Acute
[2016-08-08] MEDS: ENOXAPARIN 40 MG/0.4 ML SYRINGE SQ SCH (20:18)
[2016-08-08] MEDS: SODIUM CHLORIDE 5% OPHTH OINT 3.5 GM TUBE BOTH EYES SCH (20:18)
[2016-08-08] MEDS: SULFAMETHOX TMP IVPB SCH ×2 (20:28)
[2016-08-08] MEDS: DEXTROSE 5% IVPB SCH ×2 (20:28)
[2016-08-08] MEDS: WATER IVPB SCH ×2 (20:28)
--- NOTE | 2016-08-08 20:57 | HP ---
DATE OF ADMISSION: 08/08/2016 PRESENTING COMPLAINT: Acute fever and weakness. HISTORY OF PRESENTING COMPLAINT: This is a 70-year-old patient of Dr. Ferraro with a history of hypertension. She had a recent hospitalization with a multitude of symptoms and overall felt poorly. 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 On her return, she presented with flu-like symptoms, weakness, chills, headache, tired, sleepy aching all over. An extensive workup was completed at that time. Patient was given a course of doxycycline upon discharge while awaiting further workup to be completed. Patient was seen by Dr. Goodman and was found to be positive for Coxiella burnetti Q fever pathogen. As such, patient was instructed to report to the hospital for antibiotic therapy. Patient feels bad at this time. Likely needs hydration and antibiotics, supportive care. She has a poor appetite. Positive for myalgias. Very weak. Very tired. REVIEW OF SYSTEMS: CONSTITUTIONAL: Reports chills. Denies fevers. EYES: Denies blurred vision. Denies pain. HEENT: Reports headache. Denies a sore throat. RESPIRATORY: No cough. CARDIOVASCULAR: Denies chest pain. Denies shortness of breath. GASTROINTESTINAL: Denies abdominal pain, diarrhea, nausea, vomiting. GENITOURINARY: Denies dysuria or hematuria. MUSCULOSKELETAL: Endorses myalgias. INTEGUMENT: Denies pruritus or rash. NEUROLOGIC: Denies numbness. Endorses weakness. PSYCHIATRY: Denies anxiety or depression. PAST MEDICAL HISTORY: 1. Hypertension. 2. Fuchs dystrophy. PAST SURGICAL HISTORY: 1. Tonsillectomy. 2. Bilateral cataract lens implant. 3. Bilateral bunionectomy. SOCIAL HISTORY: Nonsmoker. Lives by herself. 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 Patient has had recent travel to [facility]. FAMILY HISTORY: Cancer, breast cancer, osteoporosis. HOME MEDICATIONS: 1. Ibuprofen 200 mg p.o. q.6 hours p.r.n. 2. Lopressor 100 mg p.o. b.i.d. 3. Difluprednate 1 drop both eyes on Saturday. ALLERGY: PENICILLIN. PHYSICAL EXAMINATION: VITAL SIGNS: Temperature 99.2, pulse 60, respirations 18, blood pressure 116/62, oxygen saturation 92% on room air. GENERAL APPEARANCE: Average build. Lying in bed. Tired-appearing. EYES: Pupils equal. Conjunctivae normal. HEENT: External appearance of the nose and ears normal. Oral cavity normal. NECK: JVD not raised. Mass not palpable. RESPIRATORY: Effort normal. LUNGS: Clear to auscultation. CARDIOVASCULAR: First and second sounds noted. No edema. ABDOMEN: Soft, nontender. Liver and spleen not palpable. LYMPHATIC: No lymph nodes palpable in the neck or axillae. PSYCHIATRY: Alert and oriented x3. Mood and affect are tired-appearing. NEUROLOGIC: Pupils equal. Cranial nerves grossly intact. Power and sensation grossly intact. INVESTIGATIONS: White blood cell count 11.2. INR 1.3. Sodium 136. Blood glucose 116. Prealbumin 9. Chest x-ray shows no evidence of acute pulmonary disease. EKG shows atrial fibrillation with slow ventricular response. ASSESSMENT: 1. Acute fever secondary to coxiella infection. 2. Fatigue secondary to #1. 3. Acute failure of outpatient antibiotic treatment. 4. Essential hypertension, controlled. PLAN: Patient will be started on Bactrim IV per ID recommendations. Intravenous fluids to be given. Encouraging a high-protein diet. Will continue to monitor closely. Patient was seen and examined by nurse practitioner, Mary Mcgovern, and all elements of the case were discussed with attending, Dr. Bray.
[2016-08-08] MEDS ORDERED: METOPROLOL TARTRATE 50 MG TAB PO SCH (21:00)
[2016-08-08] MEDS: LACTATED RINGERS 1,000 ML IV SCH (21:52)
[2016-08-09] MEDS: LACTATED RINGERS 1,000 ML IV SCH ×2 (06:03→12:28)
--- NOTE | 2016-08-09 06:36 | HP ---
DATE OF ADMISSION: 08/08/2016 PRESENTING COMPLAINT: Weak and tired. HISTORY OF PRESENTING COMPLAINT: This is a very pleasant 70-year-old patient who was in the hospital from 07/22/16 to 07/27/16 having presented with fevers on and off for 2 weeks, had been over to [facility] and viral like syndrome had been present prior ( ). Last hospitalization did an extensive workup. CT scan of the chest was negative. Patient's C-reactive protein was 87.6. UA showed some proteinuria. Immunoglobulins and ANCA were unremarkable. Patient's CMV, IgG and IgM antibodies were unremarkable. Sarah-Coffman virus, IgM and IgG were negative. The patient's peripheral blood smear was ( ) and parasites was negative. Hepatitis screen was negative. PE was ruled out. CT scan abdomen and pelvis was unremarkable. A 2-D echocardiogram showed preserved LV function. Patient since she left has been feeling very weak and tired, rather lethargic, sleepy but able to eat, but goes back to bed. The patient was seen by Dr. Goodman in his office and he sent the patient in where patient's Coxiella burnetii for Q fever came back positive. Patient had been discharged on doxycycline that she was taking. Patient has had no more fevers. REVIEW OF SYSTEMS: CONSTITUTIONAL: Weak, tired. HEENT: None. RESPIRATORY: None. CARDIOVASCULAR; None. GASTROINTESTINAL: None. GENITOURINARY: None. MUSCULOSKELETAL: Pain in the joints. DERMATOLOGICAL: None. HEMATOLOGIC: None. LYMPHATICS: None. PSYCHIATRY: None. NEUROLOGICAL: Just sleeps, little bit sleepy. Past medical history of hypertension and Fuchs dystrophy. PAST SURGICAL HISTORY: Tonsillectomy, bilateral cataract lens implants, bilateral bunionectomy. SOCIAL HISTORY: Nonsmoker, lives alone. 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 Did go to [facility] recently. FAMILY HISTORY: Breast cancer, osteoporosis. Allergies to PENICILLIN. HOME MEDICATIONS: 1. Motrin 200 mg q.6 p.r.n. 2. Lopressor 100 mg b.i.d. 3. Durezol 1 drop to both eyes on Saturday. 4. Patient took doxycycline 100 mg q.12 for 7 days. On examination, temperature 98.5, pulse 55, respirations 18, blood pressure 103/54, pulse ox 95% on room air. GENERAL APPEARANCE: Average built, lying in bed, very tired appearing. EYES: Pupils equal. Conjunctivae normal. HEENT: Oral cavity normal. NECK: JVD not raised. Mass not palpable. RESPIRATORY: Effort normal. Lungs are clear. CARDIOVASCULAR: First and second sounds normal. No edema. ABDOMEN: Soft, nontender. Liver and spleen not palpable. LYMPHATIC: No lymph nodes palpable in the neck or axillae. PSYCHIATRY: Alert and oriented x3. Mood and affect normal. NEUROLOGICAL: Pupils equal. Cranial nerves grossly intact. Power and sensation grossly intact. INVESTIGATIONS: White count 11.2, hemoglobin 12.2. Potassium 4.3. BUN and creatinine are normal. Patient's. AST and ALT is normal. UA showing trace protein. Also note that patient's anti-smooth muscle antibody a little bit positive at 22 and anticardiolipin IgM and IgG both high and Coxiella burnetii, IgM antibody positive. ASSESSMENT: 1. This is a patient admitted last admission came with fever of unknown origin now has a diagnosis of Q fever from Coxiella burnetii and was discharged on doxycycline. It may be noted that patient's blood pressure last admission was about in the 140s now it is down to one teens and given that patient probably lost some weight. She is probably ( ) to the beta penny and that may explain most of her symptoms. 2. Essential hypertension. 3. Fuchs dystrophy. PLAN: Patient was put on IV Bactrim by Dr. Goodman . I will cut back on the dose of Lopressor to 25 twice a day. Give IV fluids. I do hope for her to recover rather quickly in 24 hours with blood pressure being more balanced. Care was discussed with the patient.
[2016-08-09] MEDS: METOPROLOL TARTRATE 25 MG TAB PO SCH ×2 (09:43→20:35)
[2016-08-09] MEDS: ENOXAPARIN 40 MG/0.4 ML SYRINGE SQ SCH (09:43)
[2016-08-09] MEDS: DEXTROSE 5% IVPB SCH ×4 (09:44→20:35)
[2016-08-09] MEDS: WATER IVPB SCH ×4 (09:44→20:35)
[2016-08-09] MEDS: SULFAMETHOX TMP IVPB SCH ×4 (09:44→20:35)
[2016-08-09 10:13] LABS: Basophils % (A) 0 %; CH 29.6; CHCM 32.6; Eosinophils # (A) 0.2 k/uL (0-0.7); Eosinophils % (A) 2 %; HCT 33.1 % (34.0-46.0); HDW 2.82; HGB 10.5 gm/dL (11.4-16.0); Hypochromasia Slight; Luc # (Auto) 0.16; Luc % (Auto) 2; Lymphocytes # (A) 2.5 k/uL (1.0-4.8); Lymphocytes % (A) 33 %; MCHC 31.8 g/dL (31.0-37.0); MCV 91.2 fL (80.0-100.0); Mean Platelet Volume 7.4; Monocytes # (A) 0.4 k/uL (0-1.0); Monocytes % (A) 6 %; Neutrophils # (A) 4.4 k/uL (1.3-7.7); Neutrophils % (A) 58 %; RBC 3.63 m/uL (3.80-5.40); RDW 13.8 % (11.5-15.5); WBC 7.7 k/uL (3.8-10.6); WBC (Perox) 7.96
[2016-08-09 10:31] LABS: Anion Gap 10 mmol/L; Blood Urea Nitrogen 10 mg/dL (7-17); Calcium 8.6 mg/dL (8.4-10.2); Carbon Dioxide 25 mmol/L (22-30); Chloride 104 mmol/L (98-107); Glucose 101 mg/dL (74-99); Non-African American GFR(MDRD) >60 (>60 ml/min/1.73 sqM); Sodium 139 mmol/L (137-145)
--- NOTE | 2016-08-09 17:26 | P.PN ---
Progress Note - Text DATE OF SERVICE: 08/09/2016 PRESENTING COMPLAINT: Fevers, weak and tired INTERVAL HISTORY: Patient presents to hospital for IV hydration and antibiotic therapy for Coxiella bumetii for Q fever was positive. Today she is tired, weak, pale, poor appetite area. Ambulatory to and from the bathroom but that's about it. REVIEW OF SYSTEMS: Done for constitutional ,cardiovascular, GI, pulmonary with relevant findings as above. CURRENT MEDICATIONS Lovenox, Lopressor, Zosyn, Tylenol. PHYSICAL EXAM: VITAL SIGNS: Temperature 99.1, pulse 58, respiratory rate 16, blood pressure 135 /35, oxygen saturation 91% on room air. GENERAL APPEARANCE: Average build. Lying in bed, not in distress. EYES: Pupils equal. Conjunctiva pale. NECK: JVD not raised. Mass not palpable. RESPIRATORY: Respiratory effort normal. Lungs clear to auscultation. CARDIOVASCULAR: First and second sounds normal. No edema. ABDOMEN: Soft. Liver and spleen not palpable. No tenderness. No mass palpable. PSYCHIATRY: Alert and oriented x3. Mood and affect normal. NEUROLOGICAL: Cranial nerves grossly intact. No facial asymmetry. Power and sensation grossly intact INVESTIGATIONS: White blood cell count 7.7, hemoglobin 10.5, platelet count 291, C-reactive protein 61.5. ASSESSMENT: 1. Q fever secondary to Coxiella infection, slow to respond. 2. Fatigue secondary to #1. 3. Acute failure of outpatient antibiotic treatment. 4. Essential hypertension, controlled. PLAN: Continue current medication and treatment plan patient will continue to be monitored very closely. WICK TENDER statement: Patient was seen and examined by nurse practitioner Mary Mcgovern in all elements of the case discussed with attending is Dr. Bray
[2016-08-09] MEDS: SODIUM CHLORIDE 5% OPHTH OINT 3.5 GM TUBE BOTH EYES SCH (20:36)
--- NOTE | 2016-08-09 21:13 | P.PN ---
Subjective Principal diagnosis: Weakness and fever 70-year-old female known to me from her recent hospitalization which was presented feeling very poorly. She had a high-grade fever chills headache and body aches and minimal cough. 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 Early in the year she had influenza. During the most recent stay influenza testing was negative. The most workup was negative. However did have a fever 101.7 eventually did improve. She was treated with a course of doxycycline with concerns of her travel potential bacterial pathogens. Extensive workup was performed. Presented to the office there is evidence of the positive PCR for Coxiella Bernetti, Q fever pathogen, it with her significant illness was brought back in the hospital for antibiotic therapy. She is feeling quite poorly at this point in time. In need of hydration and antibiotics and supportive care. She is willing that she is able to eat without nausea or emesis but has poor appetite. Her myalgias have improved a bit. But still very weak. Energy level is extremely poor. Her 2 nieces have had to perform all daily activities such as cooking and shopping. She is feeling somewhat better today. His had fever to 101.2. Is still weak but is eating quite well. Fatigue is slightly improved. Certainly not anywhere near baseline. Objective - Vital Signs Vital signs: Vital Signs Temp 101.1 F H 08/09/16 16:59 Pulse 60 08/09/16 15:00 Resp 16 08/09/16 15:00 BP 114/78 08/09/16 15:00 Pulse Ox 94 L 08/09/16 15:00 Intake & Output 08/09/16 08/09/16 08/10/16 06:59 18:59 06:59 Intake Total 1750 Balance 1750 Weight 68.039 kg Intake: IV 900 Lactated Ringers 1,000 ml 900 @ 125 mls/hr IV .Q8H REPLACED BY [facility] Rx#:[id number] Oral 850 Other: # Voids 2 3 - Exam Gen: This is a 70-year-old female. Appears acutely ill. She is lethargic. But has clear mentation. HEENT: Head is atraumatic, normocephalic. Pupils equal, round. Sclerae is anicteric. Conjunctiva pink. Mucous members of the mouth are moist. No thrush noted. NECK: Supple. No JVD. No lymphadenopathy. No thyromegaly. No neck rigidity is noted LUNGS: Clear to auscultation. No wheezes or rhonchi. No intercostal retractions. HEART: Regular rate and rhythm. No murmur. ABDOMEN: Soft. Bowel sounds are present. No masses. No tenderness. No CVA tenderness. EXTREMITIES: No pedal edema. No calf tenderness. Dorsalis pedis +2 bilaterally. NEUROLOGICAL: Patient is awake, alert and oriented x3. Cranial nerves 2 through 12 are grossly intact. - Labs CBC & Chem 7: 08/09/16 09:20 08/09/16 09:20 Labs: Abnormal Lab Results - Last 24 Hours (Table) 08/09/16 08/09/16 08/09/16 Range/Units 09: 09: 09:20 RBC 3.63 L (3.80-5.40) m/uL Hgb 10.5 L (11.4-16.0) gm/dL Hct 33.1 L (34.0-46.0) % Glucose 101 H (74-99) mg/dL C-Reactive Protein 61.5 H (<10.0) mg/L Microbiology - Last 24 Hours (Table) 08/08/16 19:30 Blood Culture Gram Stain - Preliminary Blood 08/08/16 11:14 Blood Culture - Preliminary Blood No Growth after 24 hours 08/08/16 19:30 Blood Culture - Final Blood Laboratory Results WBC 7.7 k/uL (3.8-10.6) 08/09/16 09:20 RBC 3.63 m/uL (3.80-5.40) L 08/09/16 09:20 Hgb 10.5 gm/dL (11.4-16.0) L 08/09/16 09:20 Hct 33.1 % (34.0-46.0) L 08/09/16 09:20 MCV 91.2 fL (80.0-100.0) 08/09/16 09:20 MCH 29.0 pg (25.0-35.0) 08/09/16 09:20 MCHC 31.8 g/dL (31.0-37.0) 08/09/16 09:20 RDW 13.8 % (11.5-15.5) 08/09/16 09:20 Plt Count 291 k/uL (150-450) 08/09/16 09:20 Neutrophils % 58 % 08/09/16 09:20 Lymphocytes % 33 % 08/09/16 09:20 Monocytes % 6 % 08/09/16 09:20 Eosinophils % 2 % 08/09/16 09:20 Basophils % 0 % 08/09/16 09:20 Neutrophils # 4.4 k/uL (1.3-7.7) 08/09/16 09:20 Lymphocytes # 2.5 k/uL (1.0-4.8) 08/09/16 09:20 Monocytes # 0.4 k/uL (0-1.0) 08/09/16 09:20 Eosinophils # 0.2 k/uL (0-0.7) 08/09/16 09:20 Basophils # 0.0 k/uL (0-0.2) 08/09/16 09:20 Hypochromasia Slight 08/09/16 09:20 PT 13.2 sec (9.0-12.0) H 08/08/16 11:14 INR 1.3 (<1.1) 08/08/16 11:14 APTT 30.6 sec (22.0-30.0) H 08/08/16 11:14 Sodium 139 mmol/L (137-145) 08/09/16 09:20 Potassium 4.0 mmol/L (3.5-5.1) 08/09/16 09:20 Chloride 104 mmol/L (98-107) 08/09/16 09:20 Carbon Dioxide 25 mmol/L (22-30) 08/09/16 09:20 Anion Gap 10 mmol/L 08/09/16 09:20 BUN 10 mg/dL (7-17) 08/09/16 09:20 Creatinine 0.75 mg/dL (0.52-1.04) 08/09/16 09:20 Est GFR (MDRD) Af Amer >60 (>60 ml/min/1.73 sqM) 08/09/16 09:20 Est GFR (MDRD) Non-Af >60 (>60 ml/min/1.73 sqM) 08/09/16 09:20 Glucose 101 mg/dL (74-99) H 08/09/16 09:20 Calcium 8.6 mg/dL (8.4-10.2) 08/09/16 09:20 Magnesium 2.3 mg/dL (1.6-2.3) 08/08/16 11:14 Total Bilirubin 1.0 mg/dL (0.2-1.3) 08/08/16 11:14 AST 31 U/L (14-36) 08/08/16 11:14 ALT 38 U/L (9-52) 08/08/16 11:14 Alkaline Phosphatase 106 U/L (38-126) 08/08/16 11:14 Total Creatine Kinase <20 U/L (30-135) L 08/08/16 11:14 CK-MB (CK-2) <0.2 ng/mL (0.0-2.4) 08/08/16 11:14 CK-MB (CK-2) Rel Index 08/08/16 11:14 Troponin I <0.012 ng/mL (0.000-0.034) 08/08/16 11:14 C-Reactive Protein 61.5 mg/L (<10.0) H 08/09/16 09:20 Total Protein 7.0 g/dL (6.3-8.2) 08/08/16 11:14 Albumin 3.6 g/dL (3.5-5.0) 08/08/16 11:14 Prealbumin 9 mg/dL (18-36) L 08/08/16 11:14 Urine Color Yellow 08/08/16 13:19 Urine Appearance Clear (Clear) 08/08/16 13:19 Urine pH 8.0 (5.0-8.0) 08/08/16 13:19 Ur Specific [place] 1.006 (1.001-1.035) 08/08/16 13:19 Urine Protein Trace (Negative) H 08/08/16 13:19 Urine Glucose (UA) Negative (Negative) 08/08/16 13:19 Urine Ketones Negative (Negative) 08/08/16 13:19 Urine Blood Negative (Negative) 08/08/16 13:19 Urine Nitrite Negative (Negative) 08/08/16 13:19 Urine Bilirubin Negative (Negative) 08/08/16 13:19 Urine Urobilinogen <2.0 mg/dL (<2.0) 08/08/16 13:19 Ur Leukocyte Esterase Negative (Negative) 08/08/16 13:19 Microbiology 08/08/16 19:30 Blood Blood Culture Gram Stain - Preliminary 08/08/16 11:14 Blood Blood Culture - Preliminary No Growth after 24 hours 08/08/16 19:30 Blood Blood Culture - Final Assessment and Plan (1) Q fever Narrative/Plan: Very pleasant 70-year-old female presents to hospital with ongoing illness. Recently hospitalized was having a fever in origin. She overdoes several history of significant travel before becoming ill. Her echo was performed that included negative malaria and parasite exams. Cultures were negative. Insulin the testing was negative. Because of her travel in her symptoms including a mild hepatitis concerns were for other pathogens including Coxiella infection. She was treated with doxycycline at the time of her discharge which she was insistent on at that time. There is no evidence of the PCR for the Coxiella burnetti therapy will be initiated with intravenous Bactrim given that appears to be a failure of the doxycycline therapy. Fluid hydration is being performed High-protein intake is encouraged We'll monitor closely for improvement therapy. Chest x-ray is negative no evidence of pneumonia Echocardiogram was performed on her last admission showed evidence ofsignificant endocarditis. If we have any worsening of her status a WALLY would be requested to ensure that there is not evidence of endocarditis at this time. Patient shows mild improvement today. Seems to be tolerating the current intravenous antibiotic therapy with Bactrim well. This will continue. Continue supportive care. She was with some significant fatigue and relative hypotension in somewhat of a low pulse rate. With her significant illness her beta penny is now been reduced and she is feeling somewhat better the day today. She is being monitored closely. Status: Acute (2) Failure of outpatient treatment Status: Acute (3) Fatigue Status: Acute
[2016-08-10] MEDS: ENOXAPARIN 40 MG/0.4 ML SYRINGE SQ SCH (07:53)
[2016-08-10] MEDS: METOPROLOL TARTRATE 25 MG TAB PO SCH ×2 (07:53→21:32)
[2016-08-10] MEDS: SULFAMETHOX TMP IVPB SCH ×2 (08:03)
[2016-08-10] MEDS: WATER IVPB SCH ×2 (08:03)
[2016-08-10] MEDS: DEXTROSE 5% IVPB SCH ×2 (08:03)
[2016-08-10 09:16] LABS: Basophils % (A) 0 %; CH 29.4; CHCM 33.2; Eosinophils # (A) 0.3 k/uL (0-0.7); Eosinophils % (A) 3 %; HCT 32.2 % (34.0-46.0); HDW 3.02; HGB 10.8 gm/dL (11.4-16.0); Luc # (Auto) 0.11; Luc % (Auto) 1; Lymphocytes # (A) 1.6 k/uL (1.0-4.8); Lymphocytes % (A) 20 %; MCH 29.8 pg (25.0-35.0); MCHC 33.6 g/dL (31.0-37.0); MCV 88.6 fL (80.0-100.0); Mean Platelet Volume 6.9; Monocytes # (A) 0.3 k/uL (0-1.0); Monocytes % (A) 3 %; Neutrophils # (A) 5.7 k/uL (1.3-7.7); Neutrophils % (A) 72 %; RBC 3.63 m/uL (3.80-5.40); RDW 13.4 % (11.5-15.5); WBC (Perox) 8.24
[2016-08-10 09:39] LABS: Anion Gap 11 mmol/L; Blood Urea Nitrogen 8 mg/dL (7-17); Calcium 8.4 mg/dL (8.4-10.2); Carbon Dioxide 20 mmol/L (22-30); Chloride 105 mmol/L (98-107); Glucose 189 mg/dL (74-99); Non-African American GFR(MDRD) >60 (>60 ml/min/1.73 sqM); Sodium 136 mmol/L (137-145)
[2016-08-10] MEDS: LACTATED RINGERS 1,000 ML IV SCH (10:33)
[2016-08-10] MEDS ORDERED: RX INFO: IV CONTRAST WAS GIVEN 1 EACH MISC MISCELLANE PRN (11:14)
--- NOTE | 2016-08-10 12:11 | PN ---
DATE OF SERVICE: 08/09/2016 ATTENDING NOTE: This patient was seen and examined by me. I reviewed the note of my nurse practitioner, Ms. Mcgovern. Discussed additional findings as below. This is a patient who was recently in the hospital with FUO, now has a diagnosis of Q fever, was on IV Bactrim. Patient also felt to be having side effects of beta penny. More awake today, getting IV fluids. I reviewed the patient's diary from home, the T-max I noticed was 100.1. On examination, blood pressure 135/35, pulse ox 91% on room air. LUNGS: Fair air entry. CARDIOVASCULAR: First and second sounds normal. INVESTIGATIONS: Hemoglobin 10.5. CRP 61.5. ASSESSMENT: 1. Q fever secondary to Coxiella burnetii. Continue on IV Bactrim. 2. Essential hypertension. PLAN: Patient's dose of beta penny was cut back. Discussed with Dr. Goodman. Will see how the patient does have dose of beta penny has been back. IV fluids are to continue. Will follow.
--- NOTE | 2016-08-10 12:22 | CT ---
EXAMINATION TYPE: CT angio chest DATE OF EXAM: 08/10/2016 COMPARISON: CTA chest from 3 weeks ago. HISTORY: Difficulty breathing today. CT DLP: 474 mGycm. Automated Exposure Control for Dose Reduction was Utilized. CONTRAST: CTA scan of the thorax is performed with IV Contrast, patient injected with 100 mL of Omnipaque 350, pulmonary embolism protocol. MIP Images are created on CT scanner and reviewed. FINDINGS: LUNGS: There are tiny bilateral pleural effusions now present. Mild alveolar and interstitial edema i s felt present though less prominent versus prior study. No pneumothorax is seen bilaterally. No conc erning parenchymal nodule or mass is present. No suspicious opacity or consolidation is seen. MEDIASTINUM: There is satisfactory enhancement of the pulmonary artery and its branches, there is no CT evidence for pulmonary embolism. There are no greater than 1 cm hilar or mediastinal lymph nodes. There is stable mild cardiomegaly. There is tiny pericardial effusion more prominent than prior. OTHER: Moderate multilevel spurring in the visualized spine is present. IMPRESSION: 1. No CT evidence for pulmonary embolism. 2. Possible mild CHF exacerbation as there is mild cardiomegaly with tiny bilateral pleural effusions and mild alveolar edema felt present.
[2016-08-10] MEDS: SENNOSIDES-DOCUSATE SODIUM 1 EACH TAB PO SCH (12:41)
--- NOTE | 2016-08-10 13:12 | P.PN ---
Subjective Principal diagnosis: Weakness and fever 70-year-old female known to me from her recent hospitalization which was presented feeling very poorly. She had a high-grade fever chills headache and body aches and minimal cough. 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 Early in the year she had influenza. During the most recent stay influenza testing was negative. The most workup was negative. However did have a fever 101.7 eventually did improve. She was treated with a course of doxycycline with concerns of her travel potential bacterial pathogens. Extensive workup was performed. Presented to the office there is evidence of the positive PCR for Coxiella Bernetti, Q fever pathogen, it with her significant illness was brought back in the hospital for antibiotic therapy. She is feeling quite poorly at this point in time. In need of hydration and antibiotics and supportive care. She is willing that she is able to eat without nausea or emesis but has poor appetite. Her myalgias have improved a bit. But still very weak. Energy level is extremely poor. Her 2 nieces have had to perform all daily activities such as cooking and shopping. She is feeling somewhat worse today. His had fever to 101.2. Is still weak but is eating quite well. Is having some shakiness today. This is new. Is also having some mild shortness of breath. This is also new. Objective - Vital Signs Vital signs: Vital Signs Temp 98.1 F 08/10/16 07:00 Pulse 68 08/10/16 07:00 Resp 16 08/10/16 08:00 BP 146/67 08/10/16 07:00 Pulse Ox 94 L 08/10/16 07:00 Intake & Output 08/09/16 08/10/16 08/10/16 18:59 06:59 18:59 Intake Total 400 Balance 400 Weight 68.039 kg Intake: Oral 400 Other: # Voids 3 0 - Exam Gen: This is a 70-year-old female. Appears acutely ill. She is lethargic. But has clear mentation. Ishii today. Is mildly short of breath. HEENT: Head is atraumatic, normocephalic. Pupils equal, round. Sclerae is anicteric. Conjunctiva pink. Mucous members of the mouth are moist. No thrush noted. NECK: Supple. No JVD. No lymphadenopathy. No thyromegaly. No neck rigidity is noted LUNGS: Clear to auscultation. No wheezes or rhonchi. No intercostal retractions. HEART: Regular rate and rhythm. No murmur. ABDOMEN: Soft. Bowel sounds are present. No masses. No tenderness. No CVA tenderness. EXTREMITIES: No pedal edema. No calf tenderness. Dorsalis pedis +2 bilaterally. NEUROLOGICAL: Patient is awake, alert and oriented x3. Cranial nerves 2 through 12 are grossly intact. Is having some shakiness that is not rigors. - Labs CBC & Chem 7: 08/10/16 08:46 08/10/16 08:46 Labs: Abnormal Lab Results - Last 24 Hours (Table) 08/10/16 08/10/16 Range/Units 08:46 08:46 RBC 3.63 L (3.80-5.40) m/uL Hgb 10.8 L (11.4-16.0) gm/dL Hct 32.2 L (34.0-46.0) % Sodium 136 L (137-145) mmol/L Carbon Dioxide 20 L (22-30) mmol/L Glucose 189 H (74-99) mg/dL Microbiology - Last 24 Hours (Table) 08/08/16 19:30 Blood Culture Gram Stain - Preliminary Blood Blood Culture - Preliminary Coagulase Negative Staph 08/08/16 11:14 Blood Culture - Preliminary Blood No Growth after 24 hours 08/08/16 19:30 Blood Culture - Final Blood Laboratory Results WBC 8.0 k/uL (3.8-10.6) 08/10/16 08:46 RBC 3.63 m/uL (3.80-5.40) L 08/10/16 08:46 Hgb 10.8 gm/dL (11.4-16.0) L 08/10/16 08:46 Hct 32.2 % (34.0-46.0) L 08/10/16 08:46 MCV 88.6 fL (80.0-100.0) 08/10/16 08:46 MCH 29.8 pg (25.0-35.0) 08/10/16 08:46 MCHC 33.6 g/dL (31.0-37.0) 08/10/16 08:46 RDW 13.4 % (11.5-15.5) 08/10/16 08:46 Plt Count 292 k/uL (150-450) 08/10/16 08:46 Neutrophils % 72 % 08/10/16 08:46 Lymphocytes % 20 % 08/10/16 08:46 Monocytes % 3 % 08/10/16 08:46 Eosinophils % 3 % 08/10/16 08:46 Basophils % 0 % 08/10/16 08:46 Neutrophils # 5.7 k/uL (1.3-7.7) 08/10/16 08:46 Lymphocytes # 1.6 k/uL (1.0-4.8) 08/10/16 08:46 Monocytes # 0.3 k/uL (0-1.0) 08/10/16 08:46 Eosinophils # 0.3 k/uL (0-0.7) 08/10/16 08:46 Basophils # 0.0 k/uL (0-0.2) 08/10/16 08:46 Hypochromasia Slight 08/09/16 09:20 PT 13.2 sec (9.0-12.0) H 08/08/16 11:14 INR 1.3 (<1.1) 08/08/16 11:14 APTT 30.6 sec (22.0-30.0) H 08/08/16 11:14 Sodium 136 mmol/L (137-145) L 08/10/16 08:46 Potassium 4.0 mmol/L (3.5-5.1) 08/10/16 08:46 Chloride 105 mmol/L (98-107) 08/10/16 08:46 Carbon Dioxide 20 mmol/L (22-30) L 08/10/16 08:46 Anion Gap 11 mmol/L 08/10/16 08:46 BUN 8 mg/dL (7-17) 08/10/16 08:46 Creatinine 0.74 mg/dL (0.52-1.04) 08/10/16 08:46 Est GFR (MDRD) Af Amer >60 (>60 ml/min/1.73 sqM) 08/10/16 08:46 Est GFR (MDRD) Non-Af >60 (>60 ml/min/1.73 sqM) 08/10/16 08:46 Glucose 189 mg/dL (74-99) H 08/10/16 08:46 Calcium 8.4 mg/dL (8.4-10.2) 08/10/16 08:46 Magnesium 2.3 mg/dL (1.6-2.3) 08/08/16 11:14 Total Bilirubin 1.0 mg/dL (0.2-1.3) 08/08/16 11:14 AST 31 U/L (14-36) 08/08/16 11:14 ALT 38 U/L (9-52) 08/08/16 11:14 Alkaline Phosphatase 106 U/L (38-126) 08/08/16 11:14 Total Creatine Kinase <20 U/L (30-135) L 08/08/16 11:14 CK-MB (CK-2) <0.2 ng/mL (0.0-2.4) 08/08/16 11:14 CK-MB (CK-2) Rel Index 08/08/16 11:14 Troponin I <0.012 ng/mL (0.000-0.034) 08/08/16 11:14 C-Reactive Protein 61.5 mg/L (<10.0) H 08/09/16 09:20 Total Protein 7.0 g/dL (6.3-8.2) 08/08/16 11:14 Albumin 3.6 g/dL (3.5-5.0) 08/08/16 11:14 Prealbumin 9 mg/dL (18-36) L 08/08/16 11:14 Urine Color Yellow 08/08/16 13:19 Urine Appearance Clear (Clear) 08/08/16 13:19 Urine pH 8.0 (5.0-8.0) 08/08/16 13:19 Ur Specific [place] 1.006 (1.001-1.035) 08/08/16 13:19 Urine Protein Trace (Negative) H 08/08/16 13:19 Urine Glucose (UA) Negative (Negative) 08/08/16 13:19 Urine Ketones Negative (Negative) 08/08/16 13:19 Urine Blood Negative (Negative) 08/08/16 13:19 Urine Nitrite Negative (Negative) 08/08/16 13:19 Urine Bilirubin Negative (Negative) 08/08/16 13:19 Urine Urobilinogen <2.0 mg/dL (<2.0) 08/08/16 13:19 Ur Leukocyte Esterase Negative (Negative) 08/08/16 13:19 Microbiology 08/08/16 19:30 Blood Blood Culture Gram Stain - Preliminary 08/08/16 19:30 Blood Blood Culture - Preliminary Coagulase Negative Staph 08/08/16 11:14 Blood Blood Culture - Preliminary No Growth after 24 hours 08/08/16 19:30 Blood Blood Culture - Final Assessment and Plan (1) Q fever Narrative/Plan: Very pleasant 70-year-old female presents to hospital with ongoing illness. Recently hospitalized was having a fever in origin. She overdoes several history of significant travel before becoming ill. Her echo was performed that included negative malaria and parasite exams. Cultures were negative. Insulin the testing was negative. Because of her travel in her symptoms including a mild hepatitis concerns were for other pathogens including Coxiella infection. She was treated with doxycycline at the time of her discharge which she was insistent on at that time. There is no evidence of the PCR for the Coxiella burnetti therapy will be initiated with intravenous Bactrim given that appears to be a failure of the doxycycline therapy. Fluid hydration is being performed High-protein intake is encouraged We'll monitor closely for improvement therapy. Chest x-ray is negative no evidence of pneumonia Echocardiogram was performed on her last admission showed evidence ofsignificant endocarditis. If we have any worsening of her status a WALLY would be requested to ensure that there is not evidence of endocarditis at this time. Patient had as well today. Feels more ill. A bit short of breath. Also feels quite shaky. Computed tomography scan of the chest was performed without evidence of pulmonary embolus. Mild volume overload. She's however quite shaky. Concerns is a side effect from the trimethoprim sulfamethoxazole. Discussed with discontinued. Doxycycline is restarted intravenous at this point in time. Monitor closely. If she continues to have difficulties or has any worsening WALLY may be needed to evaluate the possibility of endocarditis. Continue supportive care. She was with some significant fatigue and relative hypotension in somewhat of a low pulse rate. With her significant illness her beta penny is now been reduced and she is feeling somewhat better as far as the profound weakness. She is being monitored closely. Status: Acute (2) Failure of outpatient treatment Status: Acute (3) Fatigue Status: Acute
[2016-08-10] MEDS ORDERED: FUROSEMIDE 10 MG/ML 2 ML VIAL IV ONE (13:30)
[2016-08-10] MEDS: DOXYCYCLINE 100 MG in SODIUM CHLORIDE 0.9% 100 ML IVPB SCH ×2 (13:32→21:31)
[2016-08-10] MEDS: SODIUM CHLORIDE 5% OPHTH OINT 3.5 GM TUBE BOTH EYES SCH (21:33)
--- NOTE | 2016-08-10 22:32 | PN ---
DATE OF SERVICE: 08/10/2016 PRESENTING COMPLAINT: Weak, tired. INTERVAL HISTORY: This patient with acute fever is feeling much better overall. Getting short-winded when she comes back to the bathroom. I did order a CT scan of the chest that has come back showing negative. Patient did spike a fever yesterday. Had a long talk with the patient. Otherwise, patient is tolerating some diet. Review of systems done for constitutional, cardiovascular, GI, pulmonary; relevant findings as above. Current medication reviewed that include IV Bactrim. On examination, temperature 98.1, pulse 68, respiration 20, blood pressure 146/69, pulse ox 94% on room air. GENERAL APPEARANCE: Sitting up, not in distress. EYES: Pupils equal. Conjunctivae normal. NECK: JVD not raised. Mass not palpable. RESPIRATORY: Effort normal. LUNGS: Questionable crackles. CARDIOVASCULAR: First and second sounds normal. Minimal edema. ABDOMEN: Soft. Liver and spleen not palpable. PSYCHIATRY: Alert and oriented x3. Mood and affect normal. INVESTIGATIONS: White count 8, hemoglobin 10.8. Potassium 4. CRP 61.5. ASSESSMENT: 1. Acute fever secondary to Coxiella burnetii, continued on IV Bactrim. 2. Essential hypertension. 3. Fuchs dystrophy. 4. Shortness of breath. I did a CT scan. PE is ruled out. Some fluid overload, probably from IV fluids. PLAN: Will stop patient's IV fluids, give some IV Lasix. I discussed with Dr. Goodman about possibly switching over Bactrim to daptomycin, as that would be more appropriate. Patient of course will need a protracted course. Even though patient had a fever last night of 101, I think overall she is clinically doing better. This was discussed at length with the patient. Will follow.
[2016-08-11 09:24] LABS: Basophils % (A) 0 %; CH 29.3; CHCM 33.3; Eosinophils # (A) 0.3 k/uL (0-0.7); Eosinophils % (A) 3 %; HCT 37.2 % (34.0-46.0); HGB 12.4 gm/dL (11.4-16.0); Luc # (Auto) 0.23; Luc % (Auto) 2; Lymphocytes # (A) 2.6 k/uL (1.0-4.8); Lymphocytes % (A) 25 %; MCH 29.4 pg (25.0-35.0); MCHC 33.3 g/dL (31.0-37.0); MCV 88.3 fL (80.0-100.0); Mean Platelet Volume 7.5; Monocytes # (A) 0.5 k/uL (0-1.0); Monocytes % (A) 5 %; Neutrophils # (A) 6.5 k/uL (1.3-7.7); Neutrophils % (A) 65 %; RBC 4.22 m/uL (3.80-5.40); RDW 13.7 % (11.5-15.5); WBC 10.1 k/uL (3.8-10.6); WBC (Perox) 10.09
[2016-08-11 09:35] LABS: Anion Gap 11 mmol/L; Blood Urea Nitrogen 9 mg/dL (7-17); Carbon Dioxide 22 mmol/L (22-30); Chloride 103 mmol/L (98-107); Glucose 98 mg/dL (74-99); Non-African American GFR(MDRD) >60 (>60 ml/min/1.73 sqM); Potassium 4.3 mmol/L (3.5-5.1); Sodium 136 mmol/L (137-145)
[2016-08-11] MEDS: DOXYCYCLINE 100 MG in SODIUM CHLORIDE 0.9% 100 ML IVPB SCH ×2 (09:55→21:59)
[2016-08-11] MEDS: ENOXAPARIN 40 MG/0.4 ML SYRINGE SQ SCH (09:56)
[2016-08-11] MEDS: METOPROLOL TARTRATE 25 MG TAB PO SCH ×2 (09:56→21:59)
[2016-08-11] MEDS: SENNOSIDES-DOCUSATE SODIUM 1 EACH TAB PO SCH (10:04)
[2016-08-11] MEDS ORDERED: CALCIUM CARBONATE 500 MG CHEWABLE PO PRN (17:40)
--- NOTE | 2016-08-11 19:24 | P.PN ---
Progress Note - Text DATE OF SERVICE: 08/11/2016 PRESENTING COMPLAINT: Fevers, weak and tired INTERVAL HISTORY: Patient positive for Coxiella bumetii for Q fever started on IV Bactrim, Dr Goodman and Asa discussed therapy and changed to Daptomycin . Looks better today, sitting up in the bed, appetite still low however patient tries to eat any way. She additionally stated it takes in an enormous amount of energy for her to eat a meal, she finds exhausting. REVIEW OF SYSTEMS: Done for constitutional ,cardiovascular, GI, pulmonary with relevant findings as above. CURRENT MEDICATIONS Lovenox, Lopressor, Tylenol. Doxycycline IV PHYSICAL EXAM: VITAL SIGNS: Temperature 98.5, pulse 77 respirations 19, blood pressure 131/62, oxygen saturation 92% on room air. GENERAL APPEARANCE: Sitting up on the edge of the bed, not short of breath, more comfortable. EYES: Pupils equal. Conjunctiva pale. NECK: JVD not raised. Mass not palpable. RESPIRATORY: Respiratory effort normal. Lungs clear to auscultation. CARDIOVASCULAR: S1 S2. No edema. ABDOMEN: Soft. Liver and spleen not palpable. Epigastric tenderness. No mass palpable. PSYCHIATRY: Alert and oriented x3. Mood and affect normal. INVESTIGATIONS: Sodium 136 Blood cultures: Staphylococcus haemolyticus ASSESSMENT: 1. Q fever secondary to Coxiella burnetti infection, continue on IV daptomycin , slow to respond. 2. Essential hypertension controlled 3. Fuchs dystrophy. 4. Acute fluid overload from IV fluids, resolved with IV lasixShortness of breath likely due to fluid overload, resolving . PLAN: Overall doing better, we'll continue IV antibiotics of Daptomycin.plan of care discussed with the patient the bedside. We'll follow closely. WEB PRODUCER statement: Patient was seen and examined by nurse practitioner Mary Mcgovern in all elements of the case discussed with attending is Dr. Bray
[2016-08-11] MEDS: SODIUM CHLORIDE 5% OPHTH OINT 3.5 GM TUBE BOTH EYES SCH (21:59)
[2016-08-12] MEDS: ENOXAPARIN 40 MG/0.4 ML SYRINGE SQ SCH (08:21)
[2016-08-12] MEDS: DOXYCYCLINE 100 MG in SODIUM CHLORIDE 0.9% 100 ML IVPB SCH ×2 (08:21→20:18)
[2016-08-12] MEDS: METOPROLOL TARTRATE 25 MG TAB PO SCH ×2 (08:22→20:18)
[2016-08-12] MEDS: SENNOSIDES-DOCUSATE SODIUM 1 EACH TAB PO SCH (08:24)
[2016-08-12 09:14] LABS: Anion Gap 11 mmol/L; Blood Urea Nitrogen 13 mg/dL (7-17); Calcium 9.2 mg/dL (8.4-10.2); Carbon Dioxide 21 mmol/L (22-30); Chloride 107 mmol/L (98-107); Glucose 132 mg/dL (74-99); Non-African American GFR(MDRD) >60 (>60 ml/min/1.73 sqM); Potassium 4.3 mmol/L (3.5-5.1); Sodium 139 mmol/L (137-145)
[2016-08-12 09:26] LABS: Basophils # (A) 0.1 k/uL (0-0.2); Basophils % (A) 1 %; CH 29.2; CHCM 31.6; Eosinophils # (A) 0.3 k/uL (0-0.7); Eosinophils % (A) 4 %; HCT 38.9 % (34.0-46.0); HDW 2.87; HGB 12.5 gm/dL (11.4-16.0); Hypochromasia Slight; Luc # (Auto) 0.21; Luc % (Auto) 3; Lymphocytes # (A) 2.3 k/uL (1.0-4.8); Lymphocytes % (A) 29 %; MCH 29.8 pg (25.0-35.0); MCHC 32.2 g/dL (31.0-37.0); MCV 92.6 fL (80.0-100.0); Mean Platelet Volume 7.1; Monocytes # (A) 0.3 k/uL (0-1.0); Monocytes % (A) 4 %; Neutrophils # (A) 4.8 k/uL (1.3-7.7); Neutrophils % (A) 60 %; RBC 4.21 m/uL (3.80-5.40); RDW 13.8 % (11.5-15.5); WBC 7.9 k/uL (3.8-10.6); WBC (Perox) 7.54
--- NOTE | 2016-08-12 11:24 | PN ---
DATE OF SERVICE: 08/11/2016 ATTENDING NOTE: This patient was seen and examined by me. I reviewed the note of my nurse practitioner, Ms. Mcgovern, and discussed. Additional findings below. This patient was admitted with acute fever. Initially was on IV Bactrim and now switched over to doxycycline. Received some IV Lasix today for fluid overload. Doing much better. IV fluids discontinued. After eating a bit had been up in the hallway. On examination, afebrile. LUNGS: Fair air entry. CARDIOVASCULAR: First and second sounds are normal. INVESTIGATIONS: White count 5.6. ASSESSMENT: 1. Acute fever secondary to Coxiella raul, now switched over to doxycycline after discussed with Dr. Goodman yesterday. 2. Acute fluid overload, improved with diuresis. PLAN: I had a discussion with the patient. Pat will be continued on doxycycline. I encouraged the patient to be out of bed. She is actually getting better. Looking for just to keep an eye on the fevers. Hopefully looking for discharge in 24 to 48 hours.
[2016-08-12] MEDS: CALCIUM CARBONATE 500 MG CHEWABLE PO PRN ×2 (12:39→19:22)
[2016-08-12 13:03] LABS: ALT 36 U/L (9-52); AST 29 U/L (14-36); Alkaline Phosphatase 85 U/L (38-126); Total Bilirubin 0.4 mg/dL (0.2-1.3); Total Protein 6.4 g/dL (6.3-8.2)
--- NOTE | 2016-08-12 17:35 | P.PN ---
Progress Note - Text DATE OF SERVICE: 08/12/2016 PRESENTING COMPLAINT: Fevers, weak and tired INTERVAL HISTORY: Patient positive for Coxiella bumetii for Q fever started on IV Bactrim switched to IV Daptomycin. Looks better today, appetite improving, takes 6 walks up and down the hallways during the course of the day. REVIEW OF SYSTEMS: Done for constitutional ,cardiovascular, GI, pulmonary with relevant findings as above. CURRENT MEDICATIONS Lovenox, Lopressor, Tylenol. Doxycycline IV PHYSICAL EXAM: VITAL SIGNS: Temperature 97.2 pulse 75 respiratory rate 18 blood pressure 132/63 , oxygen saturation 91% on room air. GENERAL APPEARANCE: Lying in the bed, not short of breath, more comfortable. EYES: Pupils equal. Conjunctiva pale. NECK: JVD not raised. Mass not palpable. RESPIRATORY: Respiratory effort normal. Lungs clear to auscultation. CARDIOVASCULAR: S1 S2 noted. No edema. ABDOMEN: Soft. Liver and spleen not palpable. Epigastric and right upper quadrant tenderness. No mass palpable. PSYCHIATRY: Alert and oriented x3. Mood and affect normal. INVESTIGATIONS: Labs within normal limits. Blood cultures: Staphylococcus haemolyticus ASSESSMENT: 1. Acute fever secondary to Coxiella burnetti infection, continue on IV daptomycin. 2. Essential hypertension controlled 3. Fuchs dystrophy. 4. Acute fluid overload from IV fluids, resolved with IV lasix. . PLAN: Overall doing better, remains afebrile, we'll continue IV antibiotics of Daptomycin.plan of care discussed with the patient at the bedside. We'll follow closely. DECORATION CHECKER statement: Patient was seen and examined by nurse practitioner Mary Mcgovern in all elements of the case discussed with attending is Dr. Bray
[2016-08-12] MEDS: SODIUM CHLORIDE 5% OPHTH OINT 3.5 GM TUBE BOTH EYES SCH (20:18)
[2016-08-13 07:20] VITALS: RESP 16
[2016-08-13] MEDS: METOPROLOL TARTRATE 25 MG TAB PO SCH (08:17)
[2016-08-13] MEDS: SENNOSIDES-DOCUSATE SODIUM 1 EACH TAB PO SCH (08:17)
[2016-08-13] MEDS: CALCIUM CARBONATE 500 MG CHEWABLE PO PRN (08:18)
[2016-08-13] MEDS ORDERED: DOXYCYCLINE 50 MG CAP PO SCH (09:00)
[2016-08-13] MEDS: ENOXAPARIN 40 MG/0.4 ML SYRINGE SQ SCH (10:50)
--- NOTE | 2016-08-13 10:57 | PN ---
DATE OF SERVICE: 08/12/2016 Attending note: This patient was seen and examined by me earlier today. This is a patient admitted with acute fever and initially was on IV Bactrim and then switched to IV doxycycline. Encouraged to ( ) walk about 6 times in the hallway. Eating better. On examination, afebrile. LUNGS: Clear to auscultation. CARDIOVASCULAR: First and second sounds normal. ABDOMEN: Soft, nontender. INVESTIGATIONS: AST, ALT is normal. Potassium 4.3. ASSESSMENT: Acute fever secondary to ( ) on IV doxycycline. PLAN: Doing well. Continue with antibiotics. Hopefully, patient will be discharged tomorrow if she remains good.
[2016-08-13 14:53] VITALS: BP 140/62; PULSE 75; TEMP 97.6
--- NOTE | 2016-08-13 16:37 | US ---
EXAMINATION TYPE: US abdomen complete DATE OF EXAM: 08/13/2016 COMPARISON: NONE CLINICAL HISTORY: right upper quadrant and epigastric pain. EXAM MEASUREMENTS: Liver Length: 10.6 cm Gallbladder Wall: 0.3 cm CBD: 0.4 cm Spleen: 9.8 cm Right Kidney: 11.4 x 3.1 x 4.7 cm Left Kidney: 11.0 x 5.5 x 4.7 cm Pancreas: wnl Liver: wnl Gallbladder: wnl Evidence for sonographic Ordoñez's sign: No CBD: wnl Spleen: wnl Right Kidney: No hydronephrosis or masses seen Left Kidney: No hydronephrosis or masses seen Upper IVC: wnl Abd Aorta: atherosclerotic changes IMPRESSION: 1. No suspicious acute changes abdomen ultrasound.
--- NOTE | 2016-08-13 19:45 | P.GSCN ---
History of Present Illness Consult date: 08/13/16 Reason for Consult: Abdominal pain Requesting physician: Beto Bray History of present illness: The patient is a 70-year-old female who reports going to [facility] for 2 weeks and contracted Q fever. Prior to going to [facility], she reports getting most of her immunizations however she had recently recovered from the flu. Since her hospitalization she has been treated with Q fever and as of recently within the last day she complains of right upper quadrant abdominal pain. She denies any previous pain like this before. She denies any family history of gallbladder disease before. She was able to tolerate a tuna fish sandwich. Review of Systems CONSTITUTIONAL: Recent fevers. Denies recent weight gain. HEENT: Denies any trouble with hearing or nosebleeds. No difficulty swallowing. LYMPHATIC: The patient denies any lumps and bumps around the neck. ENDOCRINE: Denies any thyroid disorders. Denies any blood sugar glucose intolerance. RESPIRATORY: Denies pneumonia. Denies any troubles with breathing or dyspnea on exertion. CARDIOVASCULAR: Denies any chest pain, palpitations, or recent heart attacks. GASTROINTESTINAL: Denies bright red blood per rectum. No acute heartburn. GENITOURINARY: Denies any blood in urine or increased urinary frequency. MUSCULOSKELETAL: Has back pain, stiffness, joint arthritis. NEUROLOGIC: Denies any numbness or tingling along the distal extremities. No seizure disorders or headaches. PSYCHIATRIC: Denies depression or suidical ideation. HEMATOLOGIC: Denies any abnormal bleeding or bruising. Past Medical History Past Medical History: Eye Disorder, Hypertension, Pneumonia Additional Past Medical History / Comment(s): Pt admitted 07/22/16 with acute hepatitis and C. Burnetti antigens (Qfever). Other hx: fuchs dystrophy History of Any Multi-Drug Resistant Organisms: None Reported Past Surgical History: Tonsillectomy Additional Past Surgical History / Comment(s): bialteral cataracts with lens implants, bilateral bunionectomy, colonoscopy. Past Anesthesia/Blood Transfusion Reactions: Family History of Problems w/ Anesthesia Past Psychological History: No Psychological Hx Reported Additional Psychological History / Comment(s): Pt lives alone. She has recently , May 2016 traveled to [facility]. She is independent. 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 Smoking Status: Never smoker Past Alcohol Use History: None Reported Additional Past Alcohol Use History / Comment(s): Patient is a lifelong nonsmoker. She denies any medical marijuana, marijuana, street drug or alcohol use. She currently lives alone. There are no animals in the home. She has traveled to [place] on 2 occasions, Annie and Frank. She denies any recent animal exposures. 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 Past Drug Use History: None Reported - Past Family History Mother Family Medical History: Cancer, Dementia Additional Family Medical History / Comment(s): breast cancer, osteoporosis. Mother at the age of 92yrs. Father Family Medical History: Coronary Artery Disease (CAD), Hypertension Additional Family Medical History / Comment(s): Father at the age of 59yrs. Pt states her father was not very compliant with his medical care. Medications and Allergies Home Medications Medication Instructions Recorded Confirmed Type Difluprednate [Durezol] 1 drop BOTH EYES WE 08/08/16 08/08/16 History Ibuprofen [Motrin] 200 mg PO Q6HR PRN 08/08/16 08/08/16 History Sodium Chloride 5% Ophth Oint 1 applic BOTH EYES HS 08/08/16 08/08/16 History [Luther 128] Allergies Allergy/AdvReac Type Severity Reaction Status Date / Time Penicillins Allergy Rash/Hives Verified 08/08/16 11:45 Surgical - Exam Vital Signs Temp Pulse Resp BP Pulse Ox 99.2 F 60 17 116/62 97 08/08/16 11:11 08/08/16 11:11 08/08/16 11:11 08/08/16 11:11 08/08/16 11:11 GENERAL: Well developed and in no acute distress. Pleasant. HEENT: No sclera icterus. Extraocular movements grossly intact. Moist buccal mucosa. Head is atraumatic, normocephalic. Hears conversational speech. No nasal drainage. NECK: Supple without lymphadenopathy. No JV distention. CHEST: Non-labored respirations and equal bilateral excursions. CARDIOVASCULAR: Regular rate and rhythm. Palpable 2+ radial pulses. ABDOMEN: Soft, mild tenderness along the epigastrium. No peritoneal signs. Nondistended. Minimal tenderness along the right upper quadrant. MUSCULOSKELETAL: No clubbing, cyanosis or edema. NEUROLOGIC: No focal or lateralizing signs. PSYCH: Appropriate affect. Alert and oriented to person, place and time. Results - Labs 08/12/16 08:24 08/12/16 08:24 Microbiology - Last 24 Hours (Table) 08/08/16 11:14 Blood Culture - Preliminary Blood No Growth after 120 hours - Imaging US - abdomen: image reviewed (No findings of gallbladder wall thickening or acute cholecystitis.) Assessment and Plan Plan: 1. Right upper quadrant abdominal pain: Ultrasound of the gallbladder demonstrated no thickened gallbladder wall or gallstones. 2. Epigastric abdominal pain: She has tenderness of the epigastrium however as she is being discharged, patient may be seen as an outpatient in 1 week. 3. History of Q fever: Treatment per infectious disease.
--- NOTE | 2016-08-13 19:47 | P.DS ---
Providers Date of admission: 08/08/16 12:53 Expected date of discharge: 08/13/16 Attending physician: Beto Bray Consults: 08/08/16 12:55 Consult Physician Urgent Consulting Provider: Tanner Goodman Consult Reason/Comments: Q fever Do you want consulting provider notified?: Yes 08/13/16 10:15 Consult Physician Urgent Consulting Provider: Yumiko Olivas Consult Reason/Comments: Abdominal pain and tenderness Do you want consulting provider notified?: Yes Primary care physician: Dennys Ferraro [facility] Course: FINAL DIAGNOSES 1. Q fever secondary to Coxiella burnetti infection, continue on oral doxycycline. 2. Essential hypertension controlled 3. Fuchs dystrophy. 4. Acute fluid overload from IV fluids, resolved with IV lasix. HOSPITAL COURSE This is 70-year-old lady who was previously in the hospital with fevers. Had some international travel in the last 6 months, presented with flulike symptoms at that time. Patient had been seen in the outpatient setting by Dr. Goodman, and a Coxiella burmettii for Q fever was positive. Patient was admitted for fluid resuscitation, antibiotic therapy. Patient had severe medical asthenia, was on a beta penny which was adjusted was felt to be contributing to patient' s exhaustion. Noted to have some shortness of breath at rest concerns for PE, computed tomography scan negative for PE. Patient improved slowly, antibiotics were switched from IV to oral, gain strength and stamina. Complained of right upper quadrant pain, no fevers, LFTs normal, no nausea no vomiting, surgical consulted no surgical intervention required., abdominal ultrasound revealed no acute process. Patient tolerating her diet, increase stamina, breathing easier , ambulatory in the hallways feels better than on day of arrival and has such will be discharged home on antibiotic therapy. PHYSICAL EXAM Cardiovascular: First and second sounds noted no edema Respiratory: Effort mildly labored with activity, clear to auscultation bilaterally GI: Right upper quadrant tenderness, no guarding no rigidity soft Patient seen and examined by nurse practitioner Mary Mcgovern in all elements of the case discussed with attending Dr. Bray DISPOSITION Discharged home with family checking in Pertinent Studies: Abdominal ultrasound No acute or suspicious changes CT of the chest No evidence of pulmonary embolism mild CHF exacerbation Patient Condition at Discharge: Stable Plan - Discharge Summary New Discharge Prescriptions: New Calcium Carbonate [Tums] 500 mg PO TID PRN PRN Reason: Heartburn Metoprolol Tartrate [Lopressor] 25 mg PO BID #60 tab Sennosides-Docusate Sodium [Senokot-S] 1 each PO DAILY tab Doxycycline Hyclate 100 mg PO BID #20 tab Continue Sodium Chloride 5% Ophth Oint [Luther 128] 1 applic BOTH EYES HS Ibuprofen [Motrin] 200 mg PO Q6HR PRN PRN Reason: Pain Difluprednate [Durezol] 1 drop BOTH EYES WE Discontinued Metoprolol Tartrate [Lopressor] 100 mg PO BID Discharge Medication List Difluprednate [Durezol] 1 drop BOTH EYES WE 08/08/16 [History] Ibuprofen [Motrin] 200 mg PO Q6HR PRN 08/08/16 [History] Sodium Chloride 5% Ophth Oint [Luther 128] 1 applic BOTH EYES HS 08/08/16 [History ] Calcium Carbonate [Tums] 500 mg PO TID PRN 08/13/16 [Rx] Doxycycline Hyclate 100 mg PO BID #20 tab 08/13/16 [Rx] Metoprolol Tartrate [Lopressor] 25 mg PO BID #60 tab 08/13/16 [Rx] Sennosides-Docusate Sodium [Senokot-S] 1 each PO DAILY tab 08/13/16 [Rx] Follow up Appointment(s)/Referral(s): Tanner Goodman MD [STAFF PHYSICIAN] - 1 Week Yumiko Olivas MD [STAFF PHYSICIAN] - 1 Week (Follow up for August 21. ) Dennys Ferraro MD [Primary Care Provider] - 08/20/16 11:45 am Ambulatory/Diagnostic Orders: Basic Metabolic Panel [LAB.AMB] Location: Determined By Patient Basic Metabolic Panel [LAB.AMB] Location: Determined By Patient Complete Blood Count w/diff [LAB.AMB] Location: Determined By Patient Complete Blood Count w/diff [LAB.AMB] Location: Determined By Patient Discharge Disposition: HOME SELF-CARE
--- NOTE | 2016-08-13 19:57 | P.PN ---
Subjective Principal diagnosis: Weakness and fever 70-year-old female known to me from her recent hospitalization which was presented feeling very poorly. She had a high-grade fever chills headache and body aches and minimal cough. 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 Early in the year she had influenza. During the most recent stay influenza testing was negative. The most workup was negative. However did have a fever 101.7 eventually did improve. She was treated with a course of doxycycline with concerns of her travel potential bacterial pathogens. Extensive workup was performed. Presented to the office there is evidence of the positive PCR for Coxiella Bernetti, Q fever pathogen, it with her significant illness was brought back in the hospital for antibiotic therapy. She is feeling quite poorly at this point in time. In need of hydration and antibiotics and supportive care. She is willing that she is able to eat without nausea or emesis but has poor appetite. Her myalgias have improved a bit. But still very weak. today is feeling much better anxious to go home. Was having some abdominal pain , US performed and is normal, appears improved gallbladder from last scan. Objective - Vital Signs Vital signs: Vital Signs Temp 97.6 F 08/13/16 14:52 Pulse 75 08/13/16 14:52 Resp 16 08/13/16 14:52 BP 140/62 08/13/16 14:52 Pulse Ox 96 08/13/16 14:52 Intake & Output 08/13/16 08/13/16 08/14/16 06:59 18:59 06:59 Intake Total 750 100 Balance 750 100 Intake: Intake, IV Titration 100 Amount Doxycycline 100 mg In 100 Sodium Chloride 0.9% 100 ml @ 66.67 mls/hr IVPB Q12HR [facility] Rx#:[id number] Oral 750 Other: # Voids 2 1 # Bowel Movements 1 - Exam Gen: This is a 70-year-old female. Appears acutely ill. She is lethargic. But has clear mentation. Ishii today. Is mildly short of breath. HEENT: Head is atraumatic, normocephalic. Pupils equal, round. Sclerae is anicteric. Conjunctiva pink. Mucous members of the mouth are moist. No thrush noted. NECK: Supple. No JVD. No lymphadenopathy. No thyromegaly. No neck rigidity is noted LUNGS: Clear to auscultation. No wheezes or rhonchi. No intercostal retractions. HEART: Regular rate and rhythm. No murmur. ABDOMEN: Soft. Bowel sounds are present. No masses. minimal epigastirc tenderness. No CVA tenderness. EXTREMITIES: No pedal edema. No calf tenderness. Dorsalis pedis +2 bilaterally. NEUROLOGICAL: Patient is awake, alert and oriented x3. Cranial nerves 2 through 12 are grossly intact. Is having some shakiness that is not rigors. - Labs CBC & Chem 7: 08/12/16 08:24 08/12/16 08:24 Labs: Microbiology - Last 24 Hours (Table) 08/08/16 11:14 Blood Culture - Preliminary Blood No Growth after 120 hours Laboratory Results WBC 7.9 k/uL (3.8-10.6) 08/12/16 08:24 RBC 4.21 m/uL (3.80-5.40) 08/12/16 08:24 Hgb 12.5 gm/dL (11.4-16.0) 08/12/16 08:24 Hct 38.9 % (34.0-46.0) 08/12/16 08:24 MCV 92.6 fL (80.0-100.0) 08/12/16 08:24 MCH 29.8 pg (25.0-35.0) 08/12/16 08:24 MCHC 32.2 g/dL (31.0-37.0) 08/12/16 08:24 RDW 13.8 % (11.5-15.5) 08/12/16 08:24 Plt Count 346 k/uL (150-450) 08/12/16 08:24 Neutrophils % 60 % 08/12/16 08:24 Lymphocytes % 29 % 08/12/16 08:24 Monocytes % 4 % 08/12/16 08:24 Eosinophils % 4 % 08/12/16 08:24 Basophils % 1 % 08/12/16 08:24 Neutrophils # 4.8 k/uL (1.3-7.7) 08/12/16 08:24 Lymphocytes # 2.3 k/uL (1.0-4.8) 08/12/16 08:24 Monocytes # 0.3 k/uL (0-1.0) 08/12/16 08:24 Eosinophils # 0.3 k/uL (0-0.7) 08/12/16 08:24 Basophils # 0.1 k/uL (0-0.2) 08/12/16 08:24 Hypochromasia Slight 08/12/16 08:24 PT 13.2 sec (9.0-12.0) H 08/08/16 11:14 INR 1.3 (<1.1) 08/08/16 11:14 APTT 30.6 sec (22.0-30.0) H 08/08/16 11:14 Sodium 139 mmol/L (137-145) 08/12/16 08:24 Potassium 4.3 mmol/L (3.5-5.1) 08/12/16 08:24 Chloride 107 mmol/L (98-107) 08/12/16 08:24 Carbon Dioxide 21 mmol/L (22-30) L 08/12/16 08:24 Anion Gap 11 mmol/L 08/12/16 08:24 BUN 13 mg/dL (7-17) 08/12/16 08:24 Creatinine 0.77 mg/dL (0.52-1.04) 08/12/16 08:24 Est GFR (MDRD) Af Amer >60 (>60 ml/min/1.73 sqM) 08/12/16 08:24 Est GFR (MDRD) Non-Af >60 (>60 ml/min/1.73 sqM) 08/12/16 08:24 Glucose 132 mg/dL (74-99) H 08/12/16 08:24 Calcium 9.2 mg/dL (8.4-10.2) 08/12/16 08:24 Magnesium 2.3 mg/dL (1.6-2.3) 08/08/16 11:14 Total Bilirubin 0.4 mg/dL (0.2-1.3) 08/12/16 08:24 AST 29 U/L (14-36) 08/12/16 08:24 ALT 36 U/L (9-52) 08/12/16 08:24 Alkaline Phosphatase 85 U/L (38-126) 08/12/16 08:24 Total Creatine Kinase <20 U/L (30-135) L 08/08/16 11:14 CK-MB (CK-2) <0.2 ng/mL (0.0-2.4) 08/08/16 11:14 CK-MB (CK-2) Rel Index 08/08/16 11:14 Troponin I <0.012 ng/mL (0.000-0.034) 08/08/16 11:14 C-Reactive Protein 61.5 mg/L (<10.0) H 08/09/16 09:20 NT-Pro-B Natriuret Pep 2020 pg/mL 08/10/16 08:46 Total Protein 6.4 g/dL (6.3-8.2) 08/12/16 08:24 Albumin 3.2 g/dL (3.5-5.0) L 08/12/16 08:24 Prealbumin 9 mg/dL (18-36) L 08/08/16 11:14 Urine Color Yellow 08/08/16 13:19 Urine Appearance Clear (Clear) 08/08/16 13:19 Urine pH 8.0 (5.0-8.0) 08/08/16 13:19 Ur Specific Greer 1.006 (1.001-1.035) 08/08/16 13:19 Urine Protein Trace (Negative) H 08/08/16 13:19 Urine Glucose (UA) Negative (Negative) 08/08/16 13:19 Urine Ketones Negative (Negative) 08/08/16 13:19 Urine Blood Negative (Negative) 08/08/16 13:19 Urine Nitrite Negative (Negative) 08/08/16 13:19 Urine Bilirubin Negative (Negative) 08/08/16 13:19 Urine Urobilinogen <2.0 mg/dL (<2.0) 08/08/16 13:19 Ur Leukocyte Esterase Negative (Negative) 08/08/16 13:19 Microbiology 08/08/16 11:14 Blood Blood Culture - Preliminary No Growth after 120 hours 08/08/16 19:30 Blood Blood Culture Gram Stain - Final 08/08/16 19:30 Blood Blood Culture - Final Staphylococcus haemolyticus 08/08/16 19:30 Blood Blood Culture - Final Assessment and Plan (1) Q fever Narrative/Plan: Very pleasant 70-year-old female presents to hospital with ongoing illness. Recently hospitalized was having a fever in origin. She overdoes several history of significant travel before becoming ill. Her echo was performed that included negative malaria and parasite exams. Cultures were negative. Insulin the testing was negative. Because of her travel in her symptoms including a mild hepatitis concerns were for other pathogens including Coxiella infection. She was treated with doxycycline at the time of her discharge which she was insistent on at that time. There is no evidence of the PCR for the Coxiella burnetti therapy will be initiated with intravenous Bactrim given that appears to be a failure of the doxycycline therapy. Fluid hydration is being performed High-protein intake is encouraged We'll monitor closely for improvement therapy. Chest x-ray is negative no evidence of pneumonia Echocardiogram was performed on her last admission showed no evidence of significant endocarditis. Patient had as good day today. The shortness of breath and shakiness of all resolved since discontinuing the intravenous Bactrim. Is done well on the doxycycline therapy. Other than GI upset is having no other new acute difficulties at this time. Looks forward to going home. Her family will help with activities such as shopping for now until she regains her strength. Follow -up in the office in 10 days. Status: Acute (2) Failure of outpatient treatment Status: Acute (3) Fatigue Status: Acute
--- NOTE | 2016-08-14 12:14 | DS ---
DATE OF ADMISSION: 08/08/2016 DATE OF DISCHARGE: 08/13/2016 ATTENDING NOTE: This patient was seen and examined by me earlier today. I reviewed the discharge summary of my nurse practitioner, Ms. Mcgovern. Discussed additional findings below. This is a patient who was re-admitted with fever after being confirmed outpatient Q fever with Coxiella burnetii. Initially started on IV Bactrim then switched to IV doxycycline. Doing much better, up and about, afebrile. Liver functions were normal. Patient has slight upper quadrant pain. LFTs are normal. No further fever. Ultrasound was unremarkable. Seen by Dr. Olivas from general surgery. Hence is being discharged. Patient was seen by Dr. Goodman. Discharge planning more than 35 minutes. On examination, as above. Lungs are clear. More details in my [employer] notes.
== END 2016-08-13 18:23 | disposition home or self-care (01) | DRG 869 ==
LOC: EC 10:47 → 4MS4W 12:53
PROVIDERS: ADMIT Hospitalist; ATTEND Hospitalist
DX: A78 Q fever (principal); E87.70 Fluid overload, unspecified; I10 Essential (primary) hypertension; Z79.899 Other long term (current) drug therapy; Z82.49 Family history of ischemic heart disease and other diseases of the circulatory system; Z88.0 Allergy status to penicillin; Z96.1 Presence of intraocular lens; H18.51 Endothelial corneal dystrophy
CPT/HCPCS: 36415; 71020; 71275; 76700; 80048; 80053; 81003; 82550; 82553; 83735; 83880; 84134; 84484; 85025; 85610; 85730; 86140; 87040; 87077; 87186; 93005; 96361; 96374; 99285

== ENCOUNTER 2017-03-21 09:51 | Day surgery (SDC) | payer MEDICARE ==
[2017-03-19 11:58] VITALS: BMI 27.4
[~2017-03-21 09:51] MED LIST: LACTATED RINGERS 1,000 ML IV SCH; LIDOCAINE 1% 20 ML VIAL (10MG/ML) FOR IV START INTRADERMA PRN
[2017-03-21 10:46] VITALS: TEMP 97.1
[2017-03-21] MEDS ORDERED: MIDAZOLAM 2 MG/2 ML VIAL ONE (11:43)
[2017-03-21 12:23] VITALS: RESP 18
[2017-03-21 12:37] VITALS: BP 154/72; PULSE 92
--- NOTE | 2017-03-21 12:42 | P.PCN ---
Date of Procedure: 03/21/17 Procedure(s) Performed: Procedure: Total colonoscopy. Preoperative diagnosis: Screening for neoplasia. Postoperative diagnosis: Exam within normal limits. Preparation: HalfLytely prep. Sedation: Was provided by anesthesia. Brief clinical history: The patient 71-year-old female who is scheduled for this evaluation for screening for neoplasia. Her prior exam was more than 10 years ago which was living in [place]. She has no abdominal complaints, bleeding or anemia. Procedure: With the patient on her left lateral decubitus position and after informed consent and after receiving a small dose of Versed for conscious sedation at her request instead of propofol or other deep sedation medications, the perianal area was inspected and it did not show any fissures or fistulas. There were no masses felt on digital rectal examination. The Olympus CFQ 160L video colonoscope was then inserted in the rectum in the usual fashion and advanced to the cecum. The preparation was good. The mucosa appeared healthy. No polyps or tumors were seen or any obvious diverticular disease or other pathology. I retroflexed the endoscope in the rectum before the endoscope was withdrawn. The patient tolerated the procedure well. Plan: The patient was reassured. She will follow-up with you as planned and I recommended repeat exam in 10 years.
== END 2017-03-21 13:14 | disposition home or self-care (01) ==
LOC: ORWHC2ENDO 09:51
DX: Z12.11 Encounter for screening for malignant neoplasm of colon (principal); Z88.0 Allergy status to penicillin; I10 Essential (primary) hypertension; M19.90 Unspecified osteoarthritis, unspecified site; Z79.899 Other long term (current) drug therapy
CPT/HCPCS: J2250; G0121

== ENCOUNTER → 2018-03-11 | Outpatient (CLI) | payer MEDICARE ==
--- NOTE | 2018-03-16 11:55 | MM ---
Reason for exam: screening (asymptomatic). Last mammogram was performed 1 year and 1 month ago. History: Patient is postmenopausal and is nulliparous. Family history of breast cancer in mother at age 49. MG 3D Screening Mammo W/Cad Bilateral CC and MLO view(s) were taken. Prior study comparison: February 01, 2017, bilateral MG 3d screening mammo w/cad. April 16, 2014, bilateral MG screening mammo w CAD. The breast tissue is heterogeneously dense. This may lower the sensitivity of mammography. There are benign-appearing round vascular calcifications in bilateral breast. No discrete abnormality. ASSESSMENT: Benign, BI-RAD 2 RECOMMENDATION: Routine screening mammogram of both breasts in 1 year.
== END | disposition home or self-care (01) ==
LOC: RADMAMWWP 09:34
PROVIDERS: ATTEND Family Medicine
DX: Z12.31 Encounter for screening mammogram for malignant neoplasm of breast (principal)
CPT/HCPCS: 77063; 77067

== ENCOUNTER → 2019-04-03 | Outpatient (CLI) | payer MEDICARE ==
--- NOTE | 2019-04-03 11:36 | US ---
EXAMINATION TYPE: US duplex aorta DATE OF EXAM: 04/03/2019 COMPARISON: NONE CLINICAL HISTORY: Z13.6 Cardiovascular... Screening HBP EXAM MEASUREMENTS: Abdominal Aorta: Proximal: 1.8 x 2.0 cm Mid: 1.8 x 1.7 cm Distal: 1.8 x 1.5 cm Bifurcation: .7 x 1.2 cm .7 x 1.0 cm No abdominal aortic aneurysm IMPRESSION: No sonographic evidence of abdominal aortic aneurysm in the visualized portions of the ab dominal aorta.
--- NOTE | 2019-04-06 09:56 | MM ---
Reason for exam: screening (asymptomatic). Last mammogram was performed 1 year and 1 month ago. History: Patient is postmenopausal and is nulliparous. Family history of breast cancer in mother at age 49. Physical Findings: A clinical breast exam by your physician is recommended on an annual basis and results should be correlated with mammographic findings. MG 3D Screening Mammo W/Cad Bilateral CC and MLO view(s) were taken. Prior study comparison: March 11, 2018, bilateral MG 3d screening mammo w/cad. February 01, 2017, bilateral MG 3d screening mammo w/cad. The breast tissue is heterogeneously dense. This may lower the sensitivity of mammography. No suspicious abnormality. No significant changes when compared with prior studies. ASSESSMENT: Negative, BI-RAD 1 RECOMMENDATION: Routine screening mammogram of both breasts in 1 year.
== END | disposition home or self-care (01) ==
LOC: RADUSWWP 10:47
PROVIDERS: ATTEND Family Medicine
DX: Z12.31 Encounter for screening mammogram for malignant neoplasm of breast (principal); Z13.6 Encounter for screening for cardiovascular disorders
CPT/HCPCS: 77063; 77067; 93979

== ENCOUNTER → 2020-02-29 | Outpatient (CLI) | payer MEDICARE ==
[2020-02-29 09:00] LABS: Basophils % (A) 1 %; Eosinophils # (A) 0.1 k/uL (0-0.7); Eosinophils % (A) 2 %; HCT 44.6 % (34.0-46.0); HGB 15.1 gm/dL (11.4-16.0); Lymphocytes # (A) 2.1 k/uL (1.0-4.8); Lymphocytes % (A) 33 %; MCH 30.6 pg (25.0-35.0); MCHC 33.9 g/dL (31.0-37.0); MCV 90.3 fL (80.0-100.0); Monocytes # (A) 0.4 k/uL (0-1.0); Monocytes % (A) 7 %; Neutrophils # (A) 3.4 k/uL (1.3-7.7); Neutrophils % (A) 55 %; Platelet Count 190 k/uL (150-450); RBC 4.94 m/uL (3.80-5.40); RDW 11.9 % (11.5-15.5); WBC 6.2 k/uL (3.8-10.6)
[2020-02-29 17:01] LABS: African American GFR (CKD) 64.3 (60.0-200.0); Albumin 4.4 g/dL (3.80-4.90); Albumin/Globulin Ratio 2.1 (1.60-3.17); Anion Gap 5.5 mmol/L (4.00-12.00); Calcium 9.5 mg/dL (8.7-10.3); Carbon Dioxide 30.5 mmol/L (21.6-31.8); Chol/HDL Ratio 3.35; Globulin 2.1 g/dL (1.6-3.3); LDL Cholesterol,Calculated 135.4 mg/dL (0.0-131.0); Non-African American GFR(CKD) 55.5 (60.0-200.0); Total Bilirubin 0.5 mg/dL (0.2-1.2); Total Protein 6.5 g/dL (6.2-8.2); VLDL Calculation 17.6 mg/dL (5.00-40.00)
[2020-02-29 17:07] LABS: Hemoglobin A1C 5.7 % (4.0-6.0)
== END | disposition home or self-care (01) ==
LOC: LABWHC1 08:23
PROVIDERS: ATTEND Nurse Practitioner Family
DX: I10 Essential (primary) hypertension (principal); M85.80 Other specified disorders of bone density and structure, unspecified site; Z13.220 Encounter for screening for lipoid disorders; Z13.1 Encounter for screening for diabetes mellitus
CPT/HCPCS: 36415; 80053; 80061; 82306; 83036; 84443; 85025

== ENCOUNTER → 2020-04-05 | Outpatient (CLI) | payer MEDICARE ==
--- NOTE | 2020-04-08 13:21 | MM ---
Reason for exam: screening (asymptomatic). Last mammogram was performed 1 year ago. History: Patient is postmenopausal and is nulliparous. Family history of breast cancer in mother at age 49 and breast cancer in cousin. Physical Findings: A clinical breast exam by your physician is recommended on an annual basis and results should be correlated with mammographic findings. MG 3D Screening Mammo W/Cad Bilateral CC and MLO view(s) were taken. Prior study comparison: April 03, 2019, bilateral MG 3d screening mammo w/cad. March 11, 2018, bilateral MG 3d screening mammo w/cad. The breast tissue is heterogeneously dense. This may lower the sensitivity of mammography. No significant changes when compared with prior studies. ASSESSMENT: Benign, BI-RAD 2 RECOMMENDATION: Routine screening mammogram of both breasts in 1 year.
== END | disposition home or self-care (01) ==
LOC: RADMAMWWP 14:58
PROVIDERS: ATTEND Family Medicine
DX: Z12.31 Encounter for screening mammogram for malignant neoplasm of breast (principal)
CPT/HCPCS: 77063; 77067

== ENCOUNTER → 2021-05-05 | Outpatient (CLI) | payer MEDICARE ==
--- NOTE | 2021-05-08 14:07 | MM ---
Reason for exam: screening (asymptomatic). Last mammogram was performed 1 year and 1 month ago. History: Patient is postmenopausal and is nulliparous. Family history of breast cancer in mother at age 49 and breast cancer in cousin. Physical Findings: A clinical breast exam by your physician is recommended on an annual basis and results should be correlated with mammographic findings. MG 3D Screening Mammo W/Cad Bilateral CC and MLO view(s) were taken. Prior study comparison: April 05, 2020, bilateral MG 3d screening mammo w/cad. April 03, 2019, bilateral MG 3d screening mammo w/cad. The breast tissue is heterogeneously dense. This may lower the sensitivity of mammography. No significant changes when compared with prior studies. ASSESSMENT: Benign, BI-RAD 2 RECOMMENDATION: Routine screening mammogram of both breasts in 1 year.
== END | disposition home or self-care (01) ==
LOC: RADMAMWWP 16:11
PROVIDERS: ATTEND Family Medicine
DX: Z12.31 Encounter for screening mammogram for malignant neoplasm of breast (principal); Z80.3 Family history of malignant neoplasm of breast; Z78.0 Asymptomatic menopausal state
CPT/HCPCS: 77063; 77067

== ENCOUNTER → 2022-07-26 | Outpatient (CLI) | payer MEDICARE ==
--- NOTE | 2022-07-27 19:03 | MM ---
Reason for Exam: Screening (asymptomatic). Last mammogram was performed 1 year(s) and 2 month(s) ago. Patient History: Menarche at age 12. Patient has no children. Postmenopausal. Maternal cousin had breast cancer, age 73. Mother had breast cancer, age 49. Risk Values: Abbey 5 year model risk: 3.5%. NCI Lifetime model risk: 7.0%. Prior Study Comparison: 04/03/2019 Bilateral Screening Mammogram, [facility]. 04/05/2020 Bilateral Screening Mammogram, [facility]. 05/05/2021 Bilateral Screening Mammogram, [facility]. Tissue Density: The breast tissue is heterogeneously dense. This may lower the sensitivity of mammography. Findings: Analyzed By CAD. Regional calcifications in the lateral aspect of both breasts remain unchanged. Unchanged subareolar asymmetric density right cc view. There is no suspicious group of microcalcifications or new suspicious mass in either breast. Overall Assessment: Benign, BI-RAD 2 Management: Screening Mammogram of both breasts in 1 year. See note below in regards to patient's increased five-year Abbey score. Patient should continue monthly self-breast exams. A clinical breast exam by your physician is recommended on an annual basis. This exam should not preclude additional follow-up of suspicious palpable abnormalities. Note on Abbey scores and lifetime risk: 1. A Abbey score greater than 3% is considered moderate risk. If this is the case, consider specialist referral to assess eligibility for a risk reducing agent. 2. If overall lifetime risk for the development of breast cancer is 20% or higher, the patient may qualify for future screening with alternating mammogram and breast MRI. Electronically signed and approved by: Avila Hoffman M.D. Radiologist
== END | disposition home or self-care (01) ==
LOC: RADMAMWWP 09:56
PROVIDERS: ATTEND Family Medicine
DX: Z12.31 Encounter for screening mammogram for malignant neoplasm of breast (principal); Z78.0 Asymptomatic menopausal state; Z80.3 Family history of malignant neoplasm of breast
CPT/HCPCS: 77063; 77067

== ENCOUNTER 2023-05-23 09:08 | Day surgery (SDC) | payer MEDICARE ==
[2023-05-20 16:52] VITALS: BMI 25.4
--- NOTE | 2023-05-22 14:13 | HP ---
HISTORY AND PHYSICAL DATE OF SURGERY: 05/23/2023. HISTORY OF PRESENT ILLNESS: Sunshine Mendoza is a 77-year-old patient seen with progressive right knee pain. We discussed options. She elected to proceed with right knee arthroscopy. Consent was obtained. Her medical clearance was provided by ARIEL Dai. PAST MEDICAL HISTORY: Hypertension, rheumatoid arthritis. PAST SURGICAL HISTORY: Cataract surgery, tonsillectomy. DAILY MEDICATIONS: 1. Enalapril. 2. Methotrexate. 3. Multivitamin. ALLERGIES: Penicillin. SOCIAL HISTORY: She denies tobacco use. PHYSICAL EVALUATION OF THE RIGHT KNEE: Range of motion is -4/5 to 100 degrees. Mild effusion. Tenderness along the medial and lateral joint lines. Positive medial and lateral Madelyn's. Ligaments stable. Hip rotation without pain. Distal neurovascular exam is intact. IMAGING STUDIES: Radiographs of the right knee revealed mild medial and moderate patellofemoral compartment osteoarthritis. MRI of right knee revealed medial and lateral meniscal tears. IMPRESSION: 1. Internal derangement of right knee with medial and lateral meniscal tears. 2. Hypertension. PLAN: Right knee arthroscopy with partial medial/lateral meniscectomy and debridement. MMODL / IJN: [id number] /
[2023-05-23] MEDS ORDERED: droPERidol 5 MG/2 ML VIAL IVP ONE (09:22)
[2023-05-23] MEDS ORDERED: HYDROmorphone 0.5 MG/0.5 ML SYRINGE IVP PRN (09:22)
[2023-05-23 09:59] LABS: Glucose,Whole Blood 98 mg/dL (70-110)
[2023-05-23] MEDS: LACTATED RINGERS 1,000 ML IV SCH (10:16)
[2023-05-23] MEDS: ONDANSETRON 4 MG/2 ML VIAL IVP ONE (10:18)
[2023-05-23] MEDS: DEXAMETHASONE SOD PHOSPHATE 4 MG/ML 1 ML VIAL IV ONE (10:18)
[2023-05-23] MEDS ORDERED: PROPOFOL 10 MG/ML 20 ML VIAL IV ONE (11:03)
[2023-05-23] MEDS ORDERED: KETOROLAC 15 MG/ML 1 ML VIAL ONE (11:03)
[2023-05-23] MEDS ORDERED: LIDOCAINE 1% INJ 10MG/ML (20 ML MDV) ONE (11:03)
[2023-05-23] MEDS ORDERED: fentaNYL (PF) 50 MCG/ML 2 ML AMP ONE (11:03)
[2023-05-23] MEDS: BUPIVACAINE (PF) 0.25% 30 ML VIAL SQ ONE ×2 (11:23→11:40)
--- NOTE | 2023-05-23 11:52 | P.OP ---
Date of Procedure: 05/23/23 Preoperative Diagnosis: Internal derangement right knee Postoperative Diagnosis: 1. Tear medial and lateral meniscus right knee 2. Grade IV chondromalacia medial femoral condyle right knee 3. Reactive synovitis medial, lateral and suprapatellar compartments right knee Procedure(s) Performed: 1. Arthroscopic partial medial and lateral meniscectomy right knee 2. Arthroscopic microfracture medial femoral condyle right knee 3. Arthroscopic partial synovectomy medial, lateral and suprapatellar compartments right knee 4. Arthroscopic chondroplasty medial femoral condyle right knee Anesthesia: RICKYA, local Surgeon: Omega Epstein Estimated Blood Loss (ml): 6 Pathology: none sent Condition: stable Disposition: PACU Indications for Procedure: 77-year-old patient seen with progressive right knee pain. After having treatment options discussed, she elected to proceed with arthroscopy. Operative Findings: See description of procedure Description of Procedure: Patient was taken to the operative suite. Patient underwent a general anesthetic by the department of anesthesia. Patient was given preoperative antibiotics. The right lower extremity was placed in a well-padded arthroscopic leg berry. The right leg was prepped and draped in the normal sterile orthopedic fashion. A lateral parapatellar and suprapatellar incision was made. Trochars were inserted. Arthroscopy was initiated. Suprapatellar pouch re vealed diffuse thick reactive synovitis. The patellofemoral joint appeared to articular congruently. There was grade III chondromalacia of the patella without significant osteochondral tearing. The scope was guided into the medial gutter. No loose bodies or plica were identified. The scope was then guided into the medial compartment. A medial parapatellar incision was made. Trocar inserted followed by probe. There was a complex tear involving the anterior and posterior horns of the medial meniscus. There was near grade III/IV chondromalacia medial femoral condyle with some large osteochondral flap tears present. There was thick reactive synovitis anteriorly. I performed a partial medial meniscectomy getting down to stable meniscal tissue. I performed a chondroplasty of the medial femoral condyle getting down to stable osteochondral tissue. I performed a partial synovectomy decompressing the thick reactive synovitis anteriorly. I did note an area of exposed bone weightbearing surface medial femoral condyle. I introduced a microfracture awl and I performed a microfracture to the area of exposed bone penetrating the bone with resultant bleeding at the microfracture site. The residual meniscus was probed and was found to be stable. The residual osteochondral surface was stable. There was good decompression of the synovitis. Scope and probe were then guided into the intercondylar notch. Cruciates were identified, probed and found to be stable. The scope and probe were then guided into lateral compartment. There was a tear involving the anterior horn of the lateral meniscus which extended to the mid body area. There were grade I chondromalacia changes lateral compartment without tears. There was some thick reactive synovitis anteriorly. I performed a partial lateral meniscectomy getting down to stable meniscal tissue. I performed a partial synovectomy decompressing the synovitis anteriorly. The residual meniscus was stable. There was good decompression of the synovitis. The scope was in guided back into the suprapatellar compartment. I introduced a motorized shaver into the suprapatellar compartment. I debrided some piecemeal fragments of meniscus that I encountered. I performed a partial synovectomy. The shaver was now removed. There was good decompression of the synovitis. I took 1 more look around the entire knee, no residual debris. Instruments were now removed from the joint. The joint was infiltrated with .25% Marcaine. Steri-Strips were applied to the portal sites. Sterile dressings were applied. The patient was placed into a SANDY hose. No tourniquet was utilized. The patient was awakened, transferred to a bed and taken to recovery stable satisfactory condition.
[2023-05-23 12:08] VITALS: TEMP 97.3
[2023-05-23 13:08] LABS: Glucose,Whole Blood 102 mg/dL (70-110)
[2023-05-23 13:55] VITALS: BP 147/58; PULSE 79; RESP 16
== END 2023-05-23 14:01 | disposition home or self-care (01) ==
LOC: OR 09:08
PROVIDERS: ATTEND Orthopaedic Surgery
DX: S83.281A Other tear of lateral meniscus, current injury, right knee, initial encounter (principal); S83.232A Complex tear of medial meniscus, current injury, left knee, initial encounter; M22.41 Chondromalacia patellae, right knee; M65.161 Other infective (teno)synovitis, right knee; I10 Essential (primary) hypertension; J45.909 Unspecified asthma, uncomplicated; M06.9 Rheumatoid arthritis, unspecified; Z88.0 Allergy status to penicillin; Z79.899 Other long term (current) drug therapy; X58.XXXA Exposure to other specified factors, initial encounter
CPT/HCPCS: 29880; 29879; J1100; J0690; J2405; J2001; J3010; J1885; J2704; J0665

== ENCOUNTER → 2023-07-31 | Outpatient (CLI) | payer MEDICARE ==
[2023-07-31 14:52] LABS: Basophils # (A) 0.04 X 10*3/uL (0.00-0.10); Basophils % (A) 0.7 %; Eosinophils % (A) 1.7 %; HCT 44.2 % (37.2-46.3); HGB 14.6 g/dL (12.0-15.0); Lymphocytes # (A) 1.83 X 10*3/uL (0.90-5.00); Lymphocytes % (A) 30.5 %; MCH 32.4 pg (27.0-32.0); Mean Platelet Volume 10.1 FL (9.5-12.2); Monocytes # (A) 0.69 X 10*3/uL (0.20-1.00); Monocytes % (A) 11.5 %; NRBC Per 100 WBC 0 X 10*3/uL (0.00-0.01); Neutrophils # (A) 3.33 X 10*3/uL (1.80-7.70); Neutrophils % (A) 55.4 %; Platelet Count 241 X 10*3/uL (140-440); RBC 4.51 X 10*6/uL (4.10-5.20); RDW 13.2 % (11.5-14.5)
[2023-07-31 15:26] LABS: BUN/Creat Ratio 26.25 Ratio (12.00-20.00); C Reactive Protein <0.30 mg/dL (0.00-0.80); Carbon Dioxide 27.4 mmol/L (21.6-31.8); Chloride 102 mmol/L (96-109); Glucose 106 mg/dL (70-110); Potassium 4.5 mmol/L (3.5-5.5); Sodium 142 mmol/L (135-145)
[2023-07-31 15:27] LABS: ALT 35 U/L (8-44); AST 29 U/L (13-35); Albumin 4.7 g/dL (3.8-4.9); Albumin/Globulin Ratio 2.04 Ratio (1.60-3.17); Alkaline Phosphatase 70 U/L (41-126); Calcium 10.3 mg/dL (8.7-10.3); Globulin 2.3 g/dL (1.6-3.3); Total Bilirubin 0.3 mg/dL (0.3-1.2)
[2023-07-31 15:44] LABS: Erythrocyte Sedimentation Rate 8 mm/Hr (0-30)
== END | disposition home or self-care (01) ==
LOC: LABWHC1 08:29
PROVIDERS: ATTEND Nurse Practitioner Family
DX: M19.90 Unspecified osteoarthritis, unspecified site (principal); M85.851 Other specified disorders of bone density and structure, right thigh; M85.852 Other specified disorders of bone density and structure, left thigh
CPT/HCPCS: 36415; 80053; 82306; 83970; 85025; 85652; 86140

== ENCOUNTER → 2023-07-31 | Outpatient (CLI) | payer MEDICARE ==
--- NOTE | 2023-07-31 23:20 | MM ---
Reason for Exam: Screening (asymptomatic). Last screening mammogram was performed 12 month(s) ago. Patient History: Menarche at age 12. Patient has no children. Postmenopausal. Maternal cousin had breast cancer, age 73. Mother had breast cancer, age 49. Risk Values: Abbey 5 year model risk: 3.4%. NCI Lifetime model risk: 6.5%. Prior Study Comparison: 04/05/2020 Bilateral Screening Mammogram, [facility]. 05/05/2021 Bilateral Screening Mammogram, [facility]. 07/26/2022 Bilateral MG 3D screening mammo w/cad, [facility]. Tissue Density: The breasts are heterogeneously dense, which may obscure small masses. Findings: Analyzed By CAD. The pattern is symmetrical. Scattered punctate calcifications are present. No suspicious groups of microcalcifications, spiculated or lobular masses, architectural distortion or other secondary signs of malignancy are mammographically apparent. Overall Assessment: Benign, BI-RAD 2 Management: Screening Mammogram of both breasts in 1 year. A negative mammogram report should not preclude additional follow up of suspicious palpable abnormalities. Patient should continue monthly self breast exam. A clinical breast exam by your physician is recommended on an annual basis and results should be correlated with mammographic findings. Note on Abbey scores and lifetime risk: 1. A Abbey score greater than 3% is considered moderate risk. If this is the case, consider specialist referral to assess eligibility for a risk reducing agent. 2. If overall lifetime risk for the development of breast cancer is 20% or higher, the patient may qualify for future screening with alternating mammogram and breast MRI. Electronically signed and approved by: Isaac Foy D.O. Radiologis
== END | disposition home or self-care (01) ==
LOC: RADMAMWWP 07:59
PROVIDERS: ATTEND Family Medicine
DX: Z12.31 Encounter for screening mammogram for malignant neoplasm of breast (principal); Z80.3 Family history of malignant neoplasm of breast; Z78.0 Asymptomatic menopausal state
CPT/HCPCS: 77063; 77067

== ENCOUNTER → 2024-08-11 | Outpatient (CLI) | payer MEDICARE ==
--- NOTE | 2024-08-11 10:53 | MM ---
Reason for Exam: Screening (asymptomatic). Last mammogram was performed 1 year(s) and 1 month(s) ago. Patient History: Menarche at age 12. Patient has no children. Postmenopausal. Maternal cousin had breast cancer, age 73. Mother had breast cancer, age 49. Risk Values: Abbey 5 year model risk: 3.4%. NCI Lifetime model risk: 6.0%. Prior Study Comparison: 05/05/2021 Bilateral Screening Mammogram, [facility]. 07/26/2022 Bilateral MG 3D screening mammo w/cad, [facility]. 07/31/2023 Bilateral MG 3D screening mammo w/cad, [facility]. Tissue Density: The breasts are heterogeneously dense, which may obscure small masses. Findings: Analyzed By CAD. Some benign-appearing round calcifications bilaterally are redemonstrated. Prominent benign-appearing bilateral axillary lymph nodes are again seen. Benign-appearing vascular calcifications left breast is redemonstrated. There is no suspicious group of microcalcifications or new suspicious mass in either breast. Overall Assessment: Benign, BI-RAD 2 Management: Screening Mammogram of both breasts in 1 year. . Patient should continue monthly self-breast exams. A clinical breast exam by your physician is recommended on an annual basis. This exam should not preclude additional follow-up of suspicious palpable abnormalities. Note on Abbey scores and lifetime risk: 1. A Abbey score greater than 3% is considered moderate risk. If this is the case, consider specialist referral to assess eligibility for a risk reducing agent. 2. If overall lifetime risk for the development of breast cancer is 20% or higher, the patient may qualify for future screening with alternating mammogram and breast MRI. [facility], , 08/11/2024 10:51 AM. Electronically signed and approved by: Zeb Li M.D.
== END | disposition home or self-care (01) ==
LOC: RADMAMWWP 08:27
PROVIDERS: ATTEND Family Medicine
DX: Z12.31 Encounter for screening mammogram for malignant neoplasm of breast (principal); R92.333 Mammographic heterogeneous density, bilateral breasts; Z78.0 Asymptomatic menopausal state; Z80.3 Family history of malignant neoplasm of breast
CPT/HCPCS: 77063; 77067